=== PATIENT | female | born 1950 | race Caucasian/White ===

== ENCOUNTER 2016-11-07 12:51 | Inpatient (IN) | payer MEDICARE, SELFPAY ==
[2016-11-07] VITALS (10 sets, daily range): BP systolic 83–97; BP diastolic 36–51; PULSE 59–66; RESP 15–21; TEMP 36.3–37; O2SAT 95–100; BMI 25.0; BMI 25.1
--- NOTE | 2016-11-07 13:23 | RAD_ITS ---
STUDY: X-RAY CHEST REASON FOR EXAM: Female, 66 years old. Cough. CHF. TECHNIQUE: Single AP portable view of the chest. COMPARISON: Comparison is made with prior study dated September 25, 2016. FINDINGS: EKG electrodes are seen. Stable bilateral pleural-parenchymal changes worse in the right hemithorax. Gastric congestion. Sternal cerclage wires and vascular clips are present from a prior sternotomy and coronary artery bypass graft procedure (CABG). Normal mediastinum and sharifa. Normal visualized pulmonary arteries. There is atherosclerotic calcification of the aortic arch with tortuosity. There are diffuse degenerative changes of the visualized thoracic spine. Normal visualized ribs, clavicles, and shoulders. There is no demonstrated abnormality of the visualized soft tissue structures of the upper abdomen. RAD/Chest 1 View (Portable) IMPRESSION: Stable bilateral pleural-parenchymal changes worse on the right side. Vascular congestion. Electronically Signed: Anand Rodriguez MD at 14:49 EDT Tel [phone], Service support ,
--- NOTE | 2016-11-07 13:23 | EKG12_ITS ---
Test Reason : Blood Pressure : / mmHG Vent. Rate : 061 BPM Atrial Rate : 061 BPM P-R Int : 164 ms QRS Dur : 148 ms QT Int : 510 ms P-R-T Axes : 030 023 190 degrees QTc Int : 513 ms Normal sinus rhythm Left bundle branch block Abnormal ECG Confirmed by MICHEAL CLARKE, CATHERINE ([id number]), manager editorial TAMEKA WHEELER ([id number]) on 11/09/2016 2:28:17 PM Referred By: LEO Confirmed By:CATHERINE BURTON MD
[2016-11-07 14:42] LABS: Absolute Lymphocyte Count 0.45 X10^3/ul (0.83-4.51); Absolute Neutrophil Count 3.7 X10^3/uL (2.0-7.7); Basophil# 0.01 X10^3/uL; Basophil% 0.2 % (0-1); Differential Indicated SCAN CRITERIA MET; Eosinophil# 0.14 X10^3/uL; Eosinophils% 2.8 % (0-5); Hematocrit 25.8 % (37-47); Hemoglobin 7.9 g/dl (12.0-15.0); Lymphocyte # 0.45 X10^3/ul (4.0); Lymphocyte % 9.1 % (19-41); Mean Corp Hgb Conc 30.6 g/gl (32-36); Mean Corpuscular Hgb 31.3 pg (27.0-32.0); Mean Corpuscular Volume 102.4 fL (81-99); Monocyte# 0.67 X10^3/uL; Monocyte% 13.6 % (0-10); Neutrophil # 3.65 X10^3/uL (2.7-7.7); Neutrophil % 74.1 % (47-70); POSITIVE COUNT NO; POSITIVE DIFFERENTIAL YES; POSITIVE MORPHOLOGY NO; Platelet Count 89 K/mm3 (150-450); RBC Distribution Width SD 55.9 fl (35.1-43.9); Red Blood Count 2.52 M/mm3 (4.2-5.4); White Blood Count 4.9 K/mm3 (4.4-11.0)
[2016-11-07 14:47] LABS: International Normalized Ratio 1.3; Prothrombin Time (Protime)PT. 15.8 SECONDS (11.7-14.9)
[2016-11-07 14:48] LABS: Partial Thromboplast Time 27.8 Seconds (24.1-36.2)
[2016-11-07 14:58] LABS: Hypochromasia 1+
[2016-11-07 14:59] LABS: Platelet Estimate SLT DEC (ADEQ)
[2016-11-07 15:02] LABS: AST(SGOT) 17 U/L (15-37); Alanine Aminotransfer ALT/SGPT 16 U/L (12-78); Albumin, Serum 2.8 g/dL (3.4-5.0); Alkaline Phosphatase 115 U/L (45-117); Anion Gap 3 (5-15); BUN 203 mg/dL (7-18); BUN/Creat Ratio 97.6 RATIO (10-20); Bilirubin, Direct 0.21 mg/dL (0.00-0.30); Calcium,Total 8.9 mg/dL (8.5-10.1); Chloride 104 mmol/L (98-107); Creatinine, Serum 2.08 mg/dL (0.55-1.02); EST Glomerular Filtration Rate 25 mL/min (>60); Est Glom Filt Rate - Afr Amer 31 mL/min (>60); Globulin 4.5 g/dL (2.3-3.5); Glucose 145 mg/dL (70-110); Magnesium 2.7 mg/dL (1.8-2.4); Potassium 5.2 mmol/L (3.5-5.1); Protein, Total 7.3 g/dL (6.4-8.2); Sodium Level 142 mmol/L (136-145)
--- NOTE | 2016-11-07 15:04 | PCM.HP.STD ---
Problem List (1) Anemia, macrocytic Status: Acute (2) LINDA (acute kidney injury) Status: Acute (3) Dehydration Status: Acute (4) Intractable nausea and vomiting Status: Acute (5) Stage 4 pressure ulcer Status: Acute (6) MRSA infection Status: Acute Comment: A49.02 (7) Malnutrition of moderate degree Status: Chronic Comment: E44.0 malnutrition, moderate, unspecified. (8) Cardiomyopathy Status: Chronic History of Present Illness Date of Admission: 11/07/16 Chief Complaint: Abnormal labs The patient is a 66 year old F who was sent to the emergency room from the [facility] [place] where she was staying because she had abnormal labs. She was sent because her BUN was over 200 and her creatinine was elevated at 2.0. On further questioning revealed that the patient has been on a 10 day course of doxycycline for an MRSA infection of a pressure ulcer and she has had severe nausea and vomiting. She is unable to keep down any liquids or solids. She denies any diarrhea. She denies abdominal pain. She does have history of congestive heart failure and cardiomyopathy and she wears a LifeVest defibrillator. She does see Dr. Mtz for cardiology. He currently has no chest pain, pressure, shortness of breath, palpitations, dizziness or lightheadedness. She denies any dysuria or discomfort with her catheter. She wears a leg bag. [] Past Medical History Past Medical History (Chronic Problems): Chronic Problems Cardiomyopathy (Chronic) History of MRSA infection (Chronic) Z86.14 Malnutrition of moderate degree (Chronic) E44.0 malnutrition, moderate, unspecified. Other chronic osteomyelitis, other site (Chronic) M86.68 clinical chronic osteomyelitis sacral bone Sacral decubitus ulcer, stage IV (Chronic) L89.154 Allergies codeine Allergy (Verified 11/07/16 13:03) Rash docetaxel [From Taxotere] Allergy (Verified 11/07/16 13:03) Other Penicillins [PCN] Allergy (Verified 11/07/16 13:03) Rash adhesive Adverse Reaction (Verified 11/07/16 13:03) Rash Home Medications: Ambulatory Orders Medication Instructions Recorded Albuterol Aerosols [Ventolin 2.5 mg INHALATION Q4H PRN PRN 02/08/15 Aerosols] Amiodarone HCl [Cordarone] 200 mg PO DAILY 02/08/15 Aspirin [Aspirin, Baby] 81 mg PO DAILY@0800 02/08/15 BusPIRone [Buspar] 5 mg PO BID 02/08/15 Lactobacillus Acidophilus/Fos 1 each PO DAILY 02/08/15 [Acidophilus Probiotic Tablet] Mirtazapine 7.5 mg PO QHS 02/08/15 Multivitamins,Ther W-Minerals 1 tablet PO DAILY 02/08/15 [Multivitamin With Minerals] Pantoprazole Sodium [Protonix] 40 mg PO DAILY 02/08/15 Simvastatin [Zocor] 10 mg PO QHS 02/08/15 Acetic Acid 30 ml IR BID 05/24/15 Bisacodyl [Laxative Suppository] 10 mg RC DAILY PRN 05/24/15 Nutritional Supplement [Luis - 1 packet PO BIDCM 05/24/15 ORANGE FLAVOR] Benzonatate [Tessalon Perle] 100 mg PO 4X/DAY PRN PRN 09/25/16 Calcium Polycarbophil [Fiber-Caps] 2 cap PO BID 09/25/16 Cefdinir 300 mg PO BID 09/25/16 Docusate Calcium [Surfak] 240 mg PO DAILY 09/25/16 Fexofenadine HCl 90 mg PO DAILY 09/25/16 Fluticasone 0.05% [Flonase Nasal 2 spray NASAL DAILY 09/25/16 [place]] K-Lite 25 meq PO DAILY 09/25/16 Nutritional Supplement [Luis - 1 packet PO BIDCM 09/25/16 ORANGE FLAVOR] Oxybutynin [Ditropan] 10 mg PO DAILY 09/25/16 Polyethylene Glycol 3350 [Miralax] 17 gm PO DAILY 09/25/16 Promethazine/Dextromethorphan 10 ml PO QHS 09/25/16 [Promethazine-Dm Syrup] Surgical History: arthroscopy, knee - for septic right knee., coronary bypass surgery - in 1994, mastectomy - left partial mastectomy with radiation and chemotherapy in 2008., pacemaker implantation - with defibrillator., - - Mitral valve replacement surgery in 06/06. Endovascular revascularization right lower extremity. 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 Lives: Assisted Smoking Status: Never smoker Tobacco Use: Non-smoker Alcohol: None Drugs: None - *Family History Paternal History Items: - - Healthy, currently 84 years of age Maternal History Items: - - Healthy, currently 81 years of age Review of Systems Constitutional: Denies: Chills, Fever, Weakness, Weight Change, Fatigue HEENT: Denies: Difficulty Swallowing, Dysphasia, Head Aches, Sinus Congestion, Sinus Drainage, Visual Changes Cardiovascular: Denies: Chest Pain, Chest Pressure, Chest Tightness, Edema, Heaviness, Palpitations, Syncope Respiratory: Denies: Cough, Pleuritic Pain, Shortness of breath at rest, Shortness of breath upon exertion, Sputum production, Wheezing Gastrointestinal: Reports: Nausea, Vomiting. Denies: Abdominal Pain, Diarrhea Genitourinary: Denies: Dysuria Musculoskeletal: Denies: Joint Pain, Joint Tenderness Skin: Denies: Rash, Wounds Neurological: Denies: Numbness, Tingling, Focal weakness Psychiatric: Denies: Anxiety, Depression, Homicidal Ideations, Suicidal Ideations Hematologic/ Lymphatic: Denies: Easy Bruising, Easy Bleeding VTE Information - Inpt Only VTE Present on Admission: No VTE Mechan Device Prophylaxis: SCD's VTE Pharm Prophylaxis ordered?: No Patient Problems: Active and Suspected Problems LINDA (acute kidney injury) (Acute) Anemia, macrocytic (Acute) Dehydration (Acute) Intractable nausea and vomiting (Acute) Stage 4 pressure ulcer (Acute) - Physical Exam General: Alert, Oriented x3, Cooperative HEENT: Atraumatic, PERRLA, EOMI, Normocephalic Neck: Supple, No JVD, Negative Carotid Bruits Lungs: Clear to auscultation, Normal air movement Cardiovascular: Regular rate, No murmurs Abdomen: Bowel Sounds Present, Soft, Non Tender Extremities: No edema, Capillary Refill Less than 3 Seconds Skin: No rashes, No breakdown Musculoskeletal: No Tenderness to Palpation of Joints or Extremities Neurological: Cranial nerves II-XII grossly intact Psych/Mental Status: Normal Affect, Appropriate, Alert and oriented to time, place, person, mood and affect Vital Signs Temp Pulse Resp BP Pulse Ox 97.6 F 64 18 92/42 100 11/07/16 12:57 11/07/16 12:57 11/07/16 12:57 11/07/16 12:57 11/07/16 12:57 Oxygen Flow Rate 2 Oxygen Delivery Method Nasal Cannula Weight: 70.307 kg Body Mass Index (BMI) 25.0 Finger Stick Blood Glucose 132 Laboratory Tests Past 24 Hrs 08/11/07/16 11/07/16 14:30 14:30 14:30 WBC 4.9 RBC 2.52 L Hgb 7.9 L Hct 25.8 L MCV 102.4 H MCH 31.3 MCHC 30.6 L RDW 15.0 H RDW Differential 55.9 H Plt Count 89 L MPV 11.0 Immature Gran % (Auto) 0.200 Neut % (Auto) 74.1 H Lymph % (Auto) 9.1 L Jessamine % (Auto) 13.6 H Eos % (Auto) 2.8 Baso % (Auto) 0.2 Absolute Neuts (auto) 3.7 Absolute Lymphs (auto) 0.45 L Total Counted Not Reportable Platelet Estimate SLT DEC Hypochromasia 1+ PT 15.8 H INR 1.3 APTT 27.8 Sodium 142 Potassium 5.2 H Chloride 104 Carbon Dioxide 35.0 H Anion Gap 3 L BUN 203 H* Creatinine 2.08 H Est GFR (MDRD) Af Amer 31 L Est GFR (MDRD) Non-Af 25 L BUN/Creatinine Ratio 97.6 H Glucose 145 H Lactic Acid Calcium 8.9 Magnesium 2.7 H Total Bilirubin 0.50 Direct Bilirubin 0.21 AST 17 ALT 16 Alkaline Phosphatase 115 Troponin I 0.49 H Total Protein 7.3 Albumin 2.8 L Globulin 4.5 H 11/07/16 14:30 WBC RBC Hgb Hct MCV MCH MCHC RDW RDW Differential Plt Count MPV Immature Gran % (Auto) Neut % (Auto) Lymph % (Auto) Jessamine % (Auto) Eos % (Auto) Baso % (Auto) Absolute Neuts (auto) Absolute Lymphs (auto) Total Counted Platelet Estimate Hypochromasia PT INR APTT Sodium Potassium Chloride Carbon Dioxide Anion Gap BUN Creatinine Est GFR (MDRD) Af Amer Est GFR (MDRD) Non-Af BUN/Creatinine Ratio Glucose Lactic Acid Pending Calcium Magnesium Total Bilirubin Direct Bilirubin AST ALT Alkaline Phosphatase Troponin I Total Protein Albumin Globulin Assessment/Plan Active and Suspected Problems LINDA (acute kidney injury) (Acute) Anemia, macrocytic (Acute) Dehydration (Acute) Intractable nausea and vomiting (Acute) Stage 4 pressure ulcer (Acute) Assessment/plan: Patient admitted to general medical floor on telemetry for acute kidney injury likely secondary to decreased p.o. intake from nausea and vomiting, suspect intolerance to doxycycline. Troponin was indeterminate, will continue telemetry. 1. Acute kidney injury-probable CKD stage III - provide gentle IV hydration. BUN 203 and creatinine 2.08. Baseline appears to be BUN about 55, creatinine about 1.3. Do not over hydrate this patient as she has cardiomyopathy with severely reduced ejection fraction. Provide antiemetics to encourage p.o. intake. 2. Indeterminate troponin-cycle, telemetry. 3. Pressure injury present on admission with MRSA infection, patient on doxycycline. If she continues to not tolerate doxy she might need her antibiotic changed. Per her sensitivity report this is resistant to Bactrim and clindamycin. It is susceptible to Zyvox and vancomycin. Consult infectious disease. Consult wound care nurse. She has previously been treated by Dr. Howe and Dr. Goetz. 4. General debility-continue PT OT and plan for return to [facility] 5. Cardiomyopathy of unclear etiology-patient has chest vest. Avoid overhydration. Continue home medications. She is not having any cardiac symptoms at this point. 6. Hyperlipidemia-statin 7. Anxiety-BuSpar 8. Malnutrition-continue Remeron and dietary supplements. Consult dietitian 9. GERD-continue Protonix 10. Macrocytic anemia-hemoglobin 7.9. Check B12 and folate levels. Avoid blood thinners. Transfuse if less than 7. DVT prophylaxis with SCDs, no chemoprophylaxis until anemia stable. Estimated length of stay is greater than 2 midnights Discharge planning: return to [facility] at discharge.
[2016-11-07 15:11] LABS: Lactic Acid 2.1 mmol/L (0.4-2.0)
--- NOTE | 2016-11-07 15:12 | ED.DCSUM_ITS ---
- ER Visit Summary Date of Service: 11/07/16 Chief Complaint: [Abnormal labs] History of Present Illness: The patient is a 66 F [who was sent from group home with elevated BUN. Patient states that about 2 weeks ago she began to have vomiting has been really unable to keep food or drink down. Is also about this time that she began doxycycline for MRSA infection. The patient notes that her blood pressure typically runs around 100-110 systolic. She feels like she has dry mouth. She reports still making urine though more concentrated and not as much. She denies any fevers. She denies any rashes. She is wearing a LifeVest and is in need of a defibrillator but cannot undergo anesthesia.] Physical Examination: [Afebrile. Patient is hypertensive 92/42. Heart rate 64. Gen: Well-nourished well-developed Head: Normocephalic atraumatic Eyes: Perrl EOMI ENT: TMs clear no rhinorrhea moist mucous membranes Neck: Supple no lymphadenopathy no JVD nontender CVS: Regular rate rhythm no murmurs normal S1-S2 Respiratory: No distress clear to auscultation bilaterally chest nontender Abdomen: Soft nontender nondistended normal bowel sounds no masses Back: Nontender Extremity: Nontender no edema Skin: Parlor no rash Neuro: alert orientated ?3 CN II-XII intact normal strength sensation reflexes gait cerebellar Psych: Normal affect normal mood] Test Results: [Hemoglobin returns at 7.9. Her BUN is 203 with a creatinine of 2.08. Troponin 0 0.49. Magnesium 2.7 potassium 5.2. Sodium 142. EKG shows a sinus rhythm with left bundle branch block that is old at a rate of 61. Lactic acid is 2.1.] Emergency Department Course and Treatment: [Because the patient has poor ejection fraction we just started to gently hydrate her. I believe her elevated lactic acid is due to dehydration not due to sepsis.] Treatment Plan: [] Disposition: Admission] Impression: [ 1. Severe dehydration 2. Uremia 3. Acute renal failure 4. Elevated troponin 5. Congestive heart failure 6. Anemia] ED Disposition - Plan for ED Patient: Chief Complaint: Abn Labs Referrals: Jamil Carballo DO [Primary Care Provider] -
--- NOTE | 2016-11-07 15:19 | ED.RN ---
unable to put med list in due to computer issues. Please see ECF list for med rec.
--- NOTE | 2016-11-07 17:12 | ECHOD_ITS ---
Reason For Study: Arrhythmia Procedure This was a 2D Doppler, Color Flow transthoracic echocardiogram. Exam performed portable in patient room. Left Ventricle Severely dilated left ventricle. The estimated ejection fraction is 10-15 %. Septal motion consistent with IVCD. There is severe global hypokinesis of the left ventricle. Right Ventricle Moderately dilated right ventricle. Normal systolic function. Atria The left atrium is severely enlarged. The right atrium is mildly enlarged. Normal atrial septum. Mitral Valve Peak transmitral valve gradient 16 mmHg. Mean transmitral valve gradient 7 mmHg. Bioprosthetic mitral valve. Tricuspid Valve Normal tricuspid valve. Mild (1+) tricuspid valve insufficiency. Right ventricular systolic pressure estimated to be 50 mmHg. Moderate pulmonary hypertension. Aortic Valve Trisinus/trileaflet aortic valve. Mild diffuse aortic valve thickening. Trivial aortic valve insufficiency. Pulmonic Valve Normal pulmonic valve. Trivial eccentric pulmonic valve insufficiency. Great Vessels Normal aortic root. Mild atherosclerosis of the aortic arch. Normal inferior vena cava. Inferior vena cava collapse with sniff. Pericardium/Pleural No pericardial effusion. MMode/2D Measurements & Calculations LVIDd: 6.7 cm IVSd: 1.0 cm LVOT diam: 2.3 cm LVIDs: 6.3 cm LVPWd: 0.86 cm LVOT area: 4.2 cm2 RVDd: 4.0 cm FS: 5.5 % Ao root diam: 3.3 cm LAV(MOD-sp4): 82.7 ml LA A4 area: 26.0 cm2 LA dimension: 4.4 cm RA A4 area: 18.8 cm2 Time Measurements MV dec time: 0.51 sec Doppler Measurements & Calculations MV E max scott: 158.1 cm/sec Lat Peak E' Scott: 5.9 cm/sec Med Peak E' Scott: 1.8 cm/sec MV A max scott: 152.7 cm/sec E/E' lat: 26.6 E/E' med: 87.5 MV E/A: 1.0 MV V2 max: 197.8 cm/sec MV P1/2t max scott: 192.5 cm/sec Ao V2 max: 120.2 cm/sec MV max P.7 mmHg MV P1/2t: 110.5 msec Ao max P.8 mmHg MV V2 mean: 120.5 cm/sec MV dec slope: 510.3 cm/sec2 Ao V2 mean: 79.6 cm/sec MV mean P.7 mmHg MVA(P1/2t): 2.0 cm2 Ao mean P.9 mmHg MV V2 VTI: 79.5 cm Ao V2 VTI: 27.6 cm MVA(VTI): 1.4 cm2 AUNG(I,D): 4.1 cm2 AUNG(V,D): 3.6 cm2 AI max scott: 302.0 cm/sec LV V1 max: 103.8 cm/sec SV(LVOT): 113.2 ml AI max P.5 mmHg LV V1 max P.3 mmHg AI dec slope: 121.1 cm/sec2 LV V1 mean P.3 mmHg AI P1/2t: 730.4 msec LV V1 mean: 71.3 cm/sec LV V1 VTI: 27.2 cm PA V2 max: 88.6 cm/sec TR max scott: 336.0 cm/sec TR max P.2 mmHg Interpretation Summary Severely dilated left ventricle. The estimated ejection fraction is 10-15 %. There is severe global hypokinesis of the left ventricle. Moderately dilated right ventricle. The left atrium is severely enlarged. The right atrium is mildly enlarged. Bioprosthetic mitral valve. Mild (1+) tricuspid valve insufficiency. Right ventricular systolic pressure estimated to be 50 mmHg. Moderate pulmonary hypertension. Trivial aortic valve insufficiency. There is no comparison study available. Ordering Physician: Radha Lewis Referring Physician: Jamil Carballo Performed By: Deshawn Montalvo RCS
[2016-11-07 17:15] LABS: Bacteria 0 SEEN /hpf (None Seen); Mucous, Urine 0 SEEN /hpf (<or=2+); Squamous Epithelial Cells - UA 0 SEEN /hpf (5-10); White Blood Cells 0 SEEN /hpf (0-5)
[2016-11-07 17:22] LABS: Color, Urine Yellow (Yellow); Glucose, Dipstick Normal (Normal); Ketone-Dipstick Negative (Negative); Leukocyte Esterase-Dipstick Negative /ul (Negative); Nitrite-Dipstick Negative (Negative); Occult Blood-Urine 150 /ul (Negative); Protein-Dipstick Negative (Negative); Urine Bilirubin Dipstick Negative (Negative); Urine Clarity Sl. Cloudy (Clear); Urine Urobilinogen Normal (Normal); Urine pH 6.5 (5.0 - 8.0)
[2016-11-07 17:31] LABS: Red Blood Cells-Urine 5-10 SEEN /hpf (0-5)
[2016-11-07 17:36] LABS: Reflex Lactate? N
--- NOTE | 2016-11-07 17:44 | US_ITS ---
STUDY: RENAL ULTRASOUND - COMPLETE REASON FOR EXAM: Female, 66 years old. Acute renal failure TECHNIQUE: Ultrasound evaluation of the kidneys was performed with real-time and static henry-scale imaging. COMPARISON: None. FINDINGS: RIGHT KIDNEY: Normal location of the right kidney, which is normal in size. The right kidney measures 10.7 x 4.4 x 4.3 cm. There is a normal cortex of the right kidney. The renal cortex measures 1.5 cm. There is no right renal mass or cyst. There are no right renal calculi. There is no right hydronephrosis. DISTAL RIGHT URETER: There is non-visualization of the distal right ureter. There is no demonstrated right ureterovesical junction calculus. There is no demonstrated right ureteral jet. LEFT KIDNEY: Normal location of the left kidney, which is normal in size. The left kidney measures 10.3 x 4.7 x 4.2 cm. There is a normal cortex of the left kidney. The renal cortex measures 1.9 cm. There is a cyst in the upper pole measuring 1.8 x 1.3 x 1.4 cm. There is an echogenic focus in the lower pole measuring 2 cm. There is mild dilatation of the collecting system in the left kidney. DISTAL LEFT URETER: There is non-visualization of the distal left ureter. There is no demonstrated left ureterovesical junction calculus. There is no demonstrated left ureteral jet. BLADDER: The bladder is decompressed with a Figueroa catheter present. US/Kidney and Bladder IMPRESSION: The kidneys are normal in size and echogenicity. There is mild hydronephrosis in the left kidney. At least one stone is seen in the left kidney measuring 2 cm in the lower pole. A ureteral stone cannot be excluded on the left side. Electronically Signed: Ara Quiles MD at 22:56 EDT Tel [phone], Service support ,
[2016-11-07 18:15] LABS: Urine Sodium 23 mmol/L (Not Establ.)
[2016-11-07] MEDS: 0.9% Normal Saline 1,000 ML 100 ML IV (18:20)
[2016-11-07 19:08] LABS: Ferritin 613 ng/mL (8-252); Iron 22 ug/dL (50-170); Iron Binding Capacity,Total 184 ug/dL (250-450)
[2016-11-07 20:36] LABS: Lactic Acid 1.1 mmol/L (0.4-2.0)
[2016-11-07] MEDS: Mirtazapine 15 MG Tablet 7.5 MG PO (22:44)
[2016-11-07] MEDS: Atorvastatin Calcium 10 MG Tablet 5 MG PO (22:55)
[2016-11-08] VITALS (20 sets, daily range): BP systolic 81–97; BP diastolic 33–50; PULSE 56–78; RESP 16–20; TEMP 36.4–36.9; O2SAT 97–100
[2016-11-08] MEDS: Acetaminophen 325 MG Tablet 650 MG PO ×3 (00:35→14:16)
[2016-11-08 04:40] LABS: Absolute Neutrophil Count 2.2 X10^3/uL (2.0-7.7); Basophil# 0.01 X10^3/uL; Basophil% 0.3 % (0-1); Eosinophil# 0.41 X10^3/uL; Eosinophils% 11.1 % (0-5); Hematocrit 24.2 % (37-47); Hemoglobin 7.4 g/dl (12.0-15.0); Lymphocyte % 21.6 % (19-41); Mean Corp Hgb Conc 30.6 g/gl (32-36); Mean Corpuscular Hgb 31.9 pg (27.0-32.0); Mean Corpuscular Volume 104.3 fL (81-99); Mean Platelet Vol. 11.2 fl (6.2-12.0); Monocyte# 0.32 X10^3/uL; Monocyte% 8.6 % (0-10); Neutrophil # 2.15 X10^3/uL (2.7-7.7); Neutrophil % 58.1 % (47-70); Platelet Count 83 K/mm3 (150-450); RBC Distribution Width CV 14.7 % (11.6-14.6); RBC Distribution Width SD 53.4 fl (35.1-43.9); Red Blood Count 2.32 M/mm3 (4.2-5.4); White Blood Count 3.7 K/mm3 (4.4-11.0)
[2016-11-08 04:54] LABS: Anion Gap 3 (5-15); BUN 165 mg/dL (7-18); Calcium,Total 8.6 mg/dL (8.5-10.1); Chloride 105 mmol/L (98-107); Creatinine, Serum 1.65 mg/dL (0.55-1.02); EST Glomerular Filtration Rate 33 mL/min (>60); Est Glom Filt Rate - Afr Amer 40 mL/min (>60); Estimated Creatinine Clearance 30.97 ml/min; Glucose 121 mg/dL (70-110); Potassium 4.5 mmol/L (3.5-5.1); Sodium Level 142 mmol/L (136-145)
[2016-11-08 05:04] LABS: POSITIVE COUNT NO; POSITIVE DIFFERENTIAL NO; POSITIVE MORPHOLOGY NO
--- NOTE | 2016-11-08 05:55 | EKG12_ITS ---
Test Reason : MORNING EKG Blood Pressure : / mmHG Vent. Rate : 058 BPM Atrial Rate : 058 BPM P-R Int : 154 ms QRS Dur : 144 ms QT Int : 506 ms P-R-T Axes : 011 040 204 degrees QTc Int : 496 ms Sinus bradycardia Left bundle branch block Abnormal ECG When compared with ECG of 07-NOV-2016 13:36, MANUAL COMPARISON REQUIRED, DATA IS UNCONFIRMED Confirmed by CESAR CLARKE, RORO ([id number]), editorial assistant SAMIA GOMES ([id number]) on 11/10/2016 10:17:29 AM Referred By: TOREY Confirmed By:RORO GUERRERO MD
[2016-11-08] MEDS: 0.9% Normal Saline 1,000 ML 100 ML IV (07:43)
[2016-11-08 09:25] LABS: Vitamin B12 433 pg/mL (211-911)
[2016-11-08] MEDS: Pantoprazole Sodium 40 MG Tablet PO (09:41)
[2016-11-08] MEDS: Multivitamins,Ther W-Minerals Tablet 1 TABLET PO (09:41)
[2016-11-08] MEDS: Tolterodine Tartrate 2 MG CAP.SA PO (09:42)
[2016-11-08] MEDS: Amiodarone 200 MG Tablet PO (09:42)
--- NOTE | 2016-11-08 10:13 | CASEMGMT ---
Chart Review: Pt is a resident at [facility]. Pt was brought to the ED for ongoing nausea, emesis, poor intake and abnormal renal labs. Past medical history includes CKD stage III, HLD, anxiety, depression, cardiomyopathy, history of MRSA infection, malnutrition of moderate degree, macrocytic anemia, sacral decubitus ulcer, stage IV, chronic sacral osteomylitis. Pt was on doxycycline for MRSA infection and was suspected to to have intolerance to doxycycline. Pt does have a wound vac to her sacral decubitus. Pt wears a chronic life vest. Pt follows with Dr. Mtz cardiology. Pt has a LINDA likely secondary to decrease PO intake. Pt uses 2 lpm oxygen chronically. Consults for PT and OT, wound RN and ID. Pt is a Q2 turn. Pt is an assist of 2 to the [facility]. Pharmacy is [facility]. PCP: Jamil Carballo. Insurance: [facility]. Discharge Plan: [facility]. Paulina Sanchez RN, BSN, CM
--- NOTE | 2016-11-08 10:22 | NURSING ---
wound photo: sacrum
[2016-11-08] MEDS: Fluticasone 0.05% 1 SPRAY NASAL.SRY 2 SPRAY NASAL (10:50)
[2016-11-08] MEDS: Loratadine 10 MG Tablet PO (10:50)
--- NOTE | 2016-11-08 11:40 | CON.PCM_ITS ---
Problem List (1) Stage 4 pressure ulcer Status: Acute Reason for Consult: mrsa infection Consulted by: Dr. 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 She was started on doxycycline last week for mRSA in sacral wound. Had some worsening of the area over the past few weeks; has weekly wound care visits. Has chronic pain at the site, but not much change in that respect. Had not noted drainage or fevers. She thinks n/v started prior to doxy on 10/31. Admitted, changed to iv doxy, wound care consulted, feeling slightly improved this AM. Full ROS performed and neg except as noted above. - Medical History Past Medical History (Chronic Problems): Chronic Problems Cardiomyopathy (Chronic) History of MRSA infection (Chronic) Z86.14 Malnutrition of moderate degree (Chronic) E44.0 malnutrition, moderate, unspecified. Other chronic osteomyelitis, other site (Chronic) M86.68 clinical chronic osteomyelitis sacral bone Sacral decubitus ulcer, stage IV (Chronic) L89.154 Allergies/Adverse Reactions: Allergies codeine Allergy (Verified 11/07/16 13:03) Rash docetaxel [From Taxotere] Allergy (Verified 11/07/16 17:20) skin peeled from hands and feet-lips and throat blistered Penicillins [PCN] Allergy (Verified 11/07/16 13:03) Rash adhesive Adverse Reaction (Verified 11/07/16 13:03) Rash Home Medications: Ambulatory Orders Medication Instructions Recorded Albuterol Aerosols [Ventolin 2.5 mg INHALATION Q4H PRN PRN 02/08/15 Aerosols] Amiodarone HCl [Cordarone] 200 mg PO DAILY 02/08/15 Aspirin [Aspirin, Baby] 81 mg PO DAILY@0800 02/08/15 BusPIRone [Buspar] 5 mg PO BID 02/08/15 Lactobacillus Acidophilus/Fos 1 each PO DAILY 02/08/15 [Acidophilus Probiotic Tablet] Mirtazapine 7.5 mg PO QHS 02/08/15 Multivitamins,Ther W-Minerals 1 tablet PO DAILY 02/08/15 [Multivitamin With Minerals] Pantoprazole Sodium [Protonix] 40 mg PO DAILY 02/08/15 Simvastatin [Zocor] 10 mg PO QHS 02/08/15 Acetic Acid 30 ml IR BID 05/24/15 Bisacodyl [Laxative Suppository] 10 mg RC DAILY PRN 05/24/15 Benzonatate [Tessalon Perle] 100 mg PO 4X/DAY PRN PRN 09/25/16 Docusate Calcium [Surfak] 240 mg PO DAILY 09/25/16 Fexofenadine HCl 90 mg PO DAILY 09/25/16 Fluticasone 0.05% [Flonase Nasal 2 spray NASAL DAILY 09/25/16 [place]] Oxybutynin [Ditropan] 10 mg PO DAILY 09/25/16 Polyethylene Glycol 3350 [Miralax] 17 gm PO DAILY 09/25/16 Promethazine/Dextromethorphan 10 ml PO QHS 09/25/16 [Promethazine-Dm Syrup] Acetaminophen [Tylenol Extra 500 mg PO Q8H PRN 11/07/16 Strength] Krish Antifungal Cream 2% 1 applicatio TOPICAL BID 11/07/16 Calcium Polycarbophil [Fiber-Caps] 2 cap PO BID 11/07/16 Doxycycline [Vibramycin] 100 mg PO BID 11/07/16 Furosemide [Lasix] 40 mg PO DAILY 11/07/16 Guaifenesin Dm [Robitussin Dm] 5 ml PO Q4H PRN 11/07/16 Ketoconazole [Nizoral] 1 applic TOPICAL QHS 11/07/16 Lactose-Reduced Food [Boost Breeze] 237 ml PO BID 11/07/16 Lisinopril [Zestril] 2.5 mg PO DAILY 11/07/16 Magnesium Hydroxide [Milk Of 30 ml PO DAILY PRN PRN 11/07/16 Magnesia] Melatonin 5 mg PO QHS PRN 11/07/16 Metoprolol(XL)Succ [Toprol Xl 25 mg PO DAILY 11/07/16 (Beta Naomi)] Nutritional Supplement [Luis - 1 packet PO BIDCM 11/07/16 ORANGE FLAVOR] Nystatin Powder [Mycostatin Powder] 1 applic TOPICAL BID PRN 11/07/16 Ondansetron HCl [Zofran] 4 mg PO Q4H PRN 11/07/16 Potassium Chloride [Klor-Con] 25 meq PO DAILY 11/07/16 Protein Supplement [Prosource] 1 oz PO TID 11/07/16 Saliva Substitute Combo No.9 1 applicatio MM BID 11/07/16 [Biotene] Vital Signs Temp Pulse Resp BP Pulse Ox 97.8 F 61 16 90/45 100 11/08/16 09:48 11/08/16 09:48 11/08/16 09:48 11/08/16 09:48 11/08/16 09:48 Oxygen Flow Rate 2 Oxygen Delivery Method Nasal Cannula Weight: 70.488 kg Body Mass Index (BMI) 25.0 Laboratory Tests Past 24 Hrs 11/07/16 11/07/16 11/07/16 16:40 16:40 16:40 WBC RBC Hgb Hct MCV MCH MCHC RDW RDW Differential Plt Count MPV Immature Gran % (Auto) Neut % (Auto) Lymph % (Auto) [place] % (Auto) Eos % (Auto) Baso % (Auto) Absolute Neuts (auto) Absolute Lymphs (auto) Total Counted Sodium Potassium Chloride Carbon Dioxide Anion Gap BUN Creatinine Estim Creat Clear Calc Est GFR (MDRD) Af Amer Est GFR (MDRD) Non-Af BUN/Creatinine Ratio Glucose Lactic Acid Calcium Iron TIBC Iron Saturation Ferritin Troponin I Vitamin B12 Folate TSH Urine Color Yellow Urine Clarity Sl. Cloudy Urine pH 6.5 Ur Specific [place] 1.010 Urine Protein Negative Urine Glucose (UA) Normal Urine Ketones Negative Urine Occult Blood 150 H Urine Nitrite Negative Urine Bilirubin Negative Urine Urobilinogen Normal Ur Leukocyte Esterase Negative Urine RBC 5-10 SEEN Urine WBC 0 SEEN Ur Squamous Epith Cells 0 SEEN Urine Bacteria 0 SEEN Urine Mucus 0 SEEN Ur Random Sodium 23 Urine Creatinine 20.80 Blood Type Antibody Screen 11/07/16 11/07/16 11/07/16 18:30 18:30 18:30 WBC RBC Hgb Hct MCV MCH MCHC RDW RDW Differential Plt Count MPV Immature Gran % (Auto) Neut % (Auto) Lymph % (Auto) [place] % (Auto) Eos % (Auto) Baso % (Auto) Absolute Neuts (auto) Absolute Lymphs (auto) Total Counted Sodium Potassium Chloride Carbon Dioxide Anion Gap BUN Creatinine Estim Creat Clear Calc Est GFR (MDRD) Af Amer Est GFR (MDRD) Non-Af BUN/Creatinine Ratio Glucose Lactic Acid Calcium Iron 22 L TIBC 184 L Iron Saturation 12.0 L Ferritin 613 H Troponin I 0.46 H Vitamin B12 433 Folate TSH 0.60 Urine Color Urine Clarity Urine pH Ur Specific [place] Urine Protein Urine Glucose (UA) Urine Ketones Urine Occult Blood Urine Nitrite Urine Bilirubin Urine Urobilinogen Ur Leukocyte Esterase Urine RBC Urine WBC Ur Squamous Epith Cells Urine Bacteria Urine Mucus Ur Random Sodium Urine Creatinine Blood Type Antibody Screen 11/07/16 11/07/16 11/07/16 18:30 20:05 22:48 WBC RBC Hgb Hct MCV MCH MCHC RDW RDW Differential Plt Count MPV Immature Gran % (Auto) Neut % (Auto) Lymph % (Auto) [place] % (Auto) Eos % (Auto) Baso % (Auto) Absolute Neuts (auto) Absolute Lymphs (auto) Total Counted Sodium Potassium Chloride Carbon Dioxide Anion Gap BUN Creatinine Estim Creat Clear Calc Est GFR (MDRD) Af Amer Est GFR (MDRD) Non-Af BUN/Creatinine Ratio Glucose Lactic Acid 1.1 Calcium Iron TIBC Iron Saturation Ferritin Troponin I 0.43 H Vitamin B12 Folate TSH Urine Color Urine Clarity Urine pH Ur Specific [place] Urine Protein Urine Glucose (UA) Urine Ketones Urine Occult Blood Urine Nitrite Urine Bilirubin Urine Urobilinogen Ur Leukocyte Esterase Urine RBC Urine WBC Ur Squamous Epith Cells Urine Bacteria Urine Mucus Ur Random Sodium Urine Creatinine Blood Type O POSITIVE Antibody Screen NEGATIVE 11/08/16 11/08/16 11/08/16 04:06 04:06 04:06 WBC 3.7 L RBC 2.32 L Hgb 7.4 L Hct 24.2 L MCV 104.3 H MCH 31.9 MCHC 30.6 L RDW 14.7 H RDW Differential 53.4 H Plt Count 83 L MPV 11.2 Immature Gran % (Auto) 0.300 Neut % (Auto) 58.1 Lymph % (Auto) 21.6 [place] % (Auto) 8.6 Eos % (Auto) 11.1 H Baso % (Auto) 0.3 Absolute Neuts (auto) 2.2 Absolute Lymphs (auto) 0.80 L Total Counted Not Reportable Sodium 142 Potassium 4.5 Chloride 105 Carbon Dioxide 34.0 H Anion Gap 3 L BUN 165 H* Creatinine 1.65 H Estim Creat Clear Calc 30.97 Est GFR (MDRD) Af Amer 40 L Est GFR (MDRD) Non-Af 33 L BUN/Creatinine Ratio 100.0 H Glucose 121 H Lactic Acid Calcium 8.6 Iron TIBC Iron Saturation Ferritin Troponin I 0.41 H Vitamin B12 Folate Pending TSH Urine Color Urine Clarity Urine pH Ur Specific [place] Urine Protein Urine Glucose (UA) Urine Ketones Urine Occult Blood Urine Nitrite Urine Bilirubin Urine Urobilinogen Ur Leukocyte Esterase Urine RBC Urine WBC Ur Squamous Epith Cells Urine Bacteria Urine Mucus Ur Random Sodium Urine Creatinine Blood Type Antibody Screen - Other Studies Radiology: []reviewed Other Studies: [] Route of nutrition/ use of supplements: [] Nutritional Intake: [] IV Site: [] Figueroa Catheter: [] - Physical Exam General: Alert, Oriented x3, Cooperative, No apparent distress HEENT: Atraumatic, PERRLA, EOMI Neck: Supple, No Nodes Lungs: Clear to auscultation, Normal air movement Cardiovascular: Regular rate, Regular Rhythm Abdomen: Bowel Sounds Present, Soft, Non Tender, Non-Distended Extremities: No cyanosis Skin: No rashes, Ulcer/ Wound - reviewed photo, deep stage 4 sacral ulcer, clean borders Musculoskeletal: No Tenderness to Palpation of Joints or Extremities Neurological: Cranial nerves II-XII grossly intact - Assessment/Plan Antibiotics: [] Assessment/Plan: [] Active and Suspected Problems LINDA (acute kidney injury) (Acute) Anemia, macrocytic (Acute) Dehydration (Acute) Intractable nausea and vomiting (Acute) Stage 4 pressure ulcer (Acute) MRSA infected sacral ulcer - d/w wound nurse. No sign of active infection. Continue doxy iv for now. Reviewed ECF med list and labwork. Thank you, will follow.
--- NOTE | 2016-11-08 12:19 | EKG12_ITS ---
Test Reason : RYTHM CHG Blood Pressure : / mmHG Vent. Rate : 076 BPM Atrial Rate : 394 BPM P-R Int : 000 ms QRS Dur : 168 ms QT Int : 480 ms P-R-T Axes : 000 019 187 degrees QTc Int : 540 ms Atrial fibrillation Left bundle branch block Abnormal ECG Confirmed by CESAR CLARKE, RORO ([id number]), newspaper editor managing TAMEKA WHEELER ([id number]) on 11/14/2016 1:25:47 PM Referred By: Confirmed By:RORO GUERRERO MD
--- NOTE | 2016-11-08 12:54 | NURSING ---
Pt has change in tele strip, EKG ordered and physician informed
--- NOTE | 2016-11-08 15:39 | PCM.PROGNOTE ---
Patient Problems: Active and Suspected Problems LINDA (acute kidney injury) (Acute) Anemia, macrocytic (Acute) Dehydration (Acute) Intractable nausea and vomiting (Acute) Stage 4 pressure ulcer (Acute) Subjective: Patient resting comfortably in bed. She has no further nausea or vomiting. She still has had poor p.o. intake as she is regurgitating food-only solids at this point. She is unable to completely swallow them and notes that before she is able to completely swallow them she coughs them back up. She has no shortness of breath, no fevers or chills, no significant cough at this point. Her pain in her wound site is stable. She continues to have no diarrhea. No abdominal pain. She is not dizzy or lightheaded. - Physical Exam General: Alert, Oriented x3, Cooperative HEENT: Atraumatic, PERRLA, EOMI, Normocephalic Neck: Supple, No JVD, Negative Carotid Bruits Lungs: Clear to auscultation, Normal air movement Cardiovascular: Regular rate, No murmurs Abdomen: Bowel Sounds Present, Soft, Non Tender Extremities: No edema, Capillary Refill Less than 3 Seconds Skin: No rashes, No breakdown Musculoskeletal: No Tenderness to Palpation of Joints or Extremities Neurological: Cranial nerves II-XII grossly intact Psych/Mental Status: Normal Affect, Appropriate, Alert and oriented to time, place, person, mood and affect Vital Signs Temp Pulse Resp BP Pulse Ox 97.6 F 78 20 93/42 98 11/08/16 12:00 11/08/16 12:00 11/08/16 12:00 11/08/16 12:00 11/08/16 12:00 Oxygen Flow Rate 2 Oxygen Delivery Method Room Air Weight: 70.488 kg Body Mass Index (BMI) 25.0 Intake and Output for Last 24 Hours 11/06/16 11/07/16 11/08/16 23:59 23:59 23:59 Intake Total 840 642 Output Total 1200 1350 Balance -360 -708 Microbiology Past 72 Hours 11/08/16 12:15 Stool Occult Blood (ARNOLDO) - Final Stool Occult Blood Positive Laboratory Tests Past 24 Hrs 11/07/16 11/07/16 11/07/16 16:40 16:40 16:40 WBC RBC Hgb Hct MCV MCH MCHC RDW RDW Differential Plt Count MPV Immature Gran % (Auto) Neut % (Auto) Lymph % (Auto) [place] % (Auto) Eos % (Auto) Baso % (Auto) Absolute Neuts (auto) Absolute Lymphs (auto) Total Counted Sodium Potassium Chloride Carbon Dioxide Anion Gap BUN Creatinine Estim Creat Clear Calc Est GFR (MDRD) Af Amer Est GFR (MDRD) Non-Af BUN/Creatinine Ratio Glucose Lactic Acid Calcium Iron TIBC Iron Saturation Ferritin Troponin I Vitamin B12 Folate TSH Urine Color Yellow Urine Clarity Sl. Cloudy Urine pH 6.5 Ur Specific [place] 1.010 Urine Protein Negative Urine Glucose (UA) Normal Urine Ketones Negative Urine Occult Blood 150 H Urine Nitrite Negative Urine Bilirubin Negative Urine Urobilinogen Normal Ur Leukocyte Esterase Negative Urine RBC 5-10 SEEN Urine WBC 0 SEEN Ur Squamous Epith Cells 0 SEEN Urine Bacteria 0 SEEN Urine Mucus 0 SEEN Ur Random Sodium 23 Urine Creatinine 20.80 Blood Type Antibody Screen 11/07/16 11/07/16 11/07/16 18:30 18:30 18:30 WBC RBC Hgb Hct MCV MCH MCHC RDW RDW Differential Plt Count MPV Immature Gran % (Auto) Neut % (Auto) Lymph % (Auto) [place] % (Auto) Eos % (Auto) Baso % (Auto) Absolute Neuts (auto) Absolute Lymphs (auto) Total Counted Sodium Potassium Chloride Carbon Dioxide Anion Gap BUN Creatinine Estim Creat Clear Calc Est GFR (MDRD) Af Amer Est GFR (MDRD) Non-Af BUN/Creatinine Ratio Glucose Lactic Acid Calcium Iron 22 L TIBC 184 L Iron Saturation 12.0 L Ferritin 613 H Troponin I 0.46 H Vitamin B12 433 Folate TSH 0.60 Urine Color Urine Clarity Urine pH Ur Specific [place] Urine Protein Urine Glucose (UA) Urine Ketones Urine Occult Blood Urine Nitrite Urine Bilirubin Urine Urobilinogen Ur Leukocyte Esterase Urine RBC Urine WBC Ur Squamous Epith Cells Urine Bacteria Urine Mucus Ur Random Sodium Urine Creatinine Blood Type Antibody Screen 11/07/16 11/07/16 11/07/16 18:30 20:05 22:48 WBC RBC Hgb Hct MCV MCH MCHC RDW RDW Differential Plt Count MPV Immature Gran % (Auto) Neut % (Auto) Lymph % (Auto) [place] % (Auto) Eos % (Auto) Baso % (Auto) Absolute Neuts (auto) Absolute Lymphs (auto) Total Counted Sodium Potassium Chloride Carbon Dioxide Anion Gap BUN Creatinine Estim Creat Clear Calc Est GFR (MDRD) Af Amer Est GFR (MDRD) Non-Af BUN/Creatinine Ratio Glucose Lactic Acid 1.1 Calcium Iron TIBC Iron Saturation Ferritin Troponin I 0.43 H Vitamin B12 Folate TSH Urine Color Urine Clarity Urine pH Ur Specific [place] Urine Protein Urine Glucose (UA) Urine Ketones Urine Occult Blood Urine Nitrite Urine Bilirubin Urine Urobilinogen Ur Leukocyte Esterase Urine RBC Urine WBC Ur Squamous Epith Cells Urine Bacteria Urine Mucus Ur Random Sodium Urine Creatinine Blood Type O POSITIVE Antibody Screen NEGATIVE 11/08/16 11/08/16 11/08/16 04:06 04:06 04:06 WBC 3.7 L RBC 2.32 L Hgb 7.4 L Hct 24.2 L MCV 104.3 H MCH 31.9 MCHC 30.6 L RDW 14.7 H RDW Differential 53.4 H Plt Count 83 L MPV 11.2 Immature Gran % (Auto) 0.300 Neut % (Auto) 58.1 Lymph % (Auto) 21.6 [place] % (Auto) 8.6 Eos % (Auto) 11.1 H Baso % (Auto) 0.3 Absolute Neuts (auto) 2.2 Absolute Lymphs (auto) 0.80 L Total Counted Not Reportable Sodium 142 Potassium 4.5 Chloride 105 Carbon Dioxide 34.0 H Anion Gap 3 L BUN 165 H* Creatinine 1.65 H Estim Creat Clear Calc 30.97 Est GFR (MDRD) Af Amer 40 L Est GFR (MDRD) Non-Af 33 L BUN/Creatinine Ratio 100.0 H Glucose 121 H Lactic Acid Calcium 8.6 Iron TIBC Iron Saturation Ferritin Troponin I 0.41 H Vitamin B12 Folate 64.20 H TSH Urine Color Urine Clarity Urine pH Ur Specific [place] Urine Protein Urine Glucose (UA) Urine Ketones Urine Occult Blood Urine Nitrite Urine Bilirubin Urine Urobilinogen Ur Leukocyte Esterase Urine RBC Urine WBC Ur Squamous Epith Cells Urine Bacteria Urine Mucus Ur Random Sodium Urine Creatinine Blood Type Antibody Screen Assessment/Plan Active and Suspected Problems LINDA (acute kidney injury) (Acute) Anemia, macrocytic (Acute) Dehydration (Acute) Intractable nausea and vomiting (Acute) Stage 4 pressure ulcer (Acute) Assessment/plan: Patient admitted to general medical floor on telemetry for acute kidney injury likely secondary to decreased p.o. intake from nausea and vomiting, suspect intolerance to doxycycline. Troponin was indeterminate, will continue telemetry. 1. Acute kidney injury-probable CKD stage III - provide gentle IV hydration. BUN 203 and creatinine 2.08 on admission, this is now improving. She still unable to tolerate p.o. adequately.. Baseline appears to be BUN about 55, creatinine about 1.3. Do not over hydrate this patient as she has cardiomyopathy with severely reduced ejection fraction. Provide antiemetics to encourage p.o. intake. 2. Indeterminate troponin-cycle, telemetry. Indeterminate troponin possibly secondary to AK I. Echocardiogram done revealing severely dilated left ventricle, EF of 10-15%, severe global hypokinesis of left ventricle, moderately dilated right ventricle, severely enlarged left atrium, bioprosthetic mitral valve, RVSP of 50 mmHg with moderate pulmonary hypertension. Chest vest in place. 3. Pressure injury present on admission with MRSA infection, patient on doxycycline. If she continues to not tolerate doxy she might need her antibiotic changed. Per her sensitivity report this is resistant to Bactrim and clindamycin. It is susceptible to Zyvox and vancomycin. Consult infectious disease. Consult wound care nurse. She has previously been treated by Dr. Howe and Dr. Goetz. Infectious disease saw the patient today and recommends to continue IV doxycycline for now. 4. General debility-this patient has been severely debilitated since 2013. She had prolonged hospitalizations following an [place] in April 2013 during which she developed pressure ulcers. Since then it would appear that she has been in LTAC's in extended-care facilities and has had recurrent problems since then with wounds infected with MRSA. She has been in and out of the wound care center with Dr. Goetz and Dr. Howe. continue PT OT and plan for return to extended care facility. 5. Cardiomyopathy of unclear etiology-patient has chest vest. Ejection fraction 10-15%, see echo results. Avoid overhydration. Continue home medications. She is not having any cardiac symptoms at this point. 6. Hyperlipidemia-statin 7. Anxiety-BuSpar 8. Malnutrition-continue Remeron and dietary supplements. Consult dietitian 9. GERD-continue Protonix 10. Macrocytic anemia-hemoglobin 7.9. B12, folate, iron studies negative. Her occult blood was positive. We will start her on Protonix IV 40 twice daily and in transfuse 2 units packed red blood cells. Follow Hgb. 11. Suspected dysphagia, difficulty swallowing solids with regurgitation. Patient will be made n.p.o. while awaiting speech therapy eval. DVT prophylaxis with SCDs, no chemoprophylaxis with + hemoccult and significant anemia. Discharge planning: return to [facility] at discharge.
--- NOTE | 2016-11-08 15:53 | NURSING ---
Called and talked [facility] to see if patient has been following there with Dr Howe. Their records indicate that patient refused to come back there after May of 2015. They will check with Dr Howe to see if he will see her again so she can be followed by a surgeon. wound is stalled and edges are slightly rolled. the edges need roughened up and bioburden removed to promote healing. Wound Center to call patient back. the wound center is aware that the patient is currently in PCU.
--- NOTE | 2016-11-08 16:24 | CHAPLAIN ---
patient has met me before; pt explains the sudden decision by [facility] [place] doctor to have her come to the ED for evaluation and admission; pt is having many tests done; pt reviews her medical history which is lengthy; pt is a and her family does not live close by; pt speaks of her deep radha in God and that He is the only one that gets her through these times; pt says that I am going to make it; pt would like me to say a prayer with her and this is done
[2016-11-08] MEDS: Mirtazapine 15 MG Tablet 7.5 MG PO (22:53)
[2016-11-08] MEDS: Atorvastatin Calcium 10 MG Tablet 5 MG PO (22:53)
[2016-11-09] VITALS (27 sets, daily range): BP systolic 54–120; BP diastolic 44–86; PULSE 65–119; RESP 18–40; TEMP 36.5–37.3; O2SAT 88–99
[2016-11-09] MEDS: 0.9% Normal Saline 1,000 ML 100 ML IV (00:46)
[2016-11-09 06:58] LABS: Absolute Lymphocyte Count 0.67 X10^3/ul (0.83-4.51); Absolute Neutrophil Count 2.8 X10^3/uL (2.0-7.7); Basophil# 0.01 X10^3/uL; Basophil% 0.3 % (0-1); Eosinophil# 0.15 X10^3/uL; Eosinophils% 3.8 % (0-5); Hematocrit 31.7 % (37-47); Hemoglobin 9.9 g/dl (12.0-15.0); Lymphocyte # 0.67 X10^3/ul (4.0); Lymphocyte % 17.1 % (19-41); Mean Corp Hgb Conc 31.2 g/gl (32-36); Mean Corpuscular Hgb 30.9 pg (27.0-32.0); Mean Corpuscular Volume 99.1 fL (81-99); Mean Platelet Vol. 11.1 fl (6.2-12.0); Monocyte# 0.32 X10^3/uL; Monocyte% 8.2 % (0-10); Neutrophil # 2.76 X10^3/uL (2.7-7.7); Neutrophil % 70.3 % (47-70); Platelet Count 84 K/mm3 (150-450); RBC Distribution Width CV 16.8 % (11.6-14.6); RBC Distribution Width SD 58.8 fl (35.1-43.9); White Blood Count 3.9 K/mm3 (4.4-11.0)
[2016-11-09 06:59] LABS: POSITIVE COUNT NO; POSITIVE DIFFERENTIAL NO; POSITIVE MORPHOLOGY NO
[2016-11-09 07:09] LABS: Anion Gap 3 (5-15); BUN 106 mg/dL (7-18); BUN/Creat Ratio 88.3 RATIO (10-20); Calcium,Total 9.2 mg/dL (8.5-10.1); Chloride 108 mmol/L (98-107); EST Glomerular Filtration Rate 48 mL/min (>60); Est Glom Filt Rate - Afr Amer 58 mL/min (>60); Estimated Creatinine Clearance 42.59 ml/min; Glucose 97 mg/dL (70-110); Potassium 4.8 mmol/L (3.5-5.1); Sodium Level 142 mmol/L (136-145)
--- NOTE | 2016-11-09 08:51 | CASEMGMT ---
SW faxed information to [facility] so they can begin pre-cert. ADRIÁN called and left a message requesting a return call. Plan: d/c back to [facility] pending pre-cert. Qing DE LA TORRE MSW
--- NOTE | 2016-11-09 09:24 | PN_ITS ---
Addendum entered and electronically signed by Prisca Cortes NP-C 11/09/16 17:33: Patient became acutely short of breath after getting up to the bathroom and getting cleaned up, her oxygen requirements increased to 4 L per nasal cannula from 2L. She was pursed lip breathing. Her IVF were discontinued. I recommended she be placed on BiPAP therapy, she refused. She became quite upset and states she is claustrophobic and cannot tolerate BiPAP in the past. She denied any chest pain or palpitations. She converted from a sinus rhythm to atrial fibrillation on the monitor (does have PAF). She then had persistent wide-complex ventricular tachycardia. She was put on a 50% Ventimask and her saturations are currently 92%. Her blood pressure is stable at 110/61, remains afebrile. Respirations are 40. EKG demonstrated atrial fibrillation with premature ventricular or aberrantly conducted complexes, nonspecific intraventricular block. Rate 95 bpm. It does appear that she has acute ischemic changes. She was given sublingual nitro ?1. Repeat chest x-ray demonstrated persistent bilateral atelectasis versus infiltrate and pleural effusions, worse on the right. Physical exam reveals absent breath sounds to the lower two thirds of the right lung and left lower lung. It was confirmed that the patient would like to remain a FULL CODE. I did attempt to contact Dr. Mtz to give him an update, but he was not lamination machine operator. Dr. Gonzalez was updated and states he will be in to see the patient this evening. Magnesium was repeated, 2.6. Troponin was also repeated, has decreased from 0.41 to 0.18. She may need to have a thoracentesis prior to Pleurx catheter insertion, however will await Dr. Gonzalez recommendations. Given the patient's acute decline in respiratory and cardiovascular status, the patient was transferred to the intensive care unit. Original Note: Patient Problems: Active and Suspected Problems LINDA (acute kidney injury) (Acute) Anemia, macrocytic (Acute) Dehydration (Acute) Intractable nausea and vomiting (Acute) Stage 4 pressure ulcer (Acute) Subjective: The patient is a 66-year-old female who presented to the emergency room from [facility] with one-week history of nausea and vomiting, inability to maintain hydration, and acute on chronic renal failure. The patient was recently at [facility] for decompensated congestive heart failure and was placed on high dose of diuretic due to severe cardiomyopathy. She ended up having several ultrasound-guided thoracentesis in September. She had follow-up labs done and was noted to have a significantly elevated BUN and creatinine. Her Lasix was held for several days and she was to have this repeated on Sunday per Dr. Crews. Does wear a LifeVest. Patient was seen and examined. She denies any shortness of breath at rest, does get short of breath with any activity. She does note that her oral intake is very poor, she was able to drink a little bit of her Glucerna this morning. She is sucking on some ice chips. She states she does not feel hungry at all. She does have intermittent nausea and vomiting, no emesis recently. She denies any chest pain, palpitations, or dizziness. She is pancytopenic. Objective: Clinical Impression(s) from Imaging Studies Chest X-Ray 11/07/16 13:23 IMPRESSION: Stable bilateral pleural-parenchymal changes worse on the right side. Vascular congestion. Electronically Signed: Anand Rodriguez MD at 14:49 EDT Tel [phone], Service support , Renal Ultrasound 11/07/16 17:44 IMPRESSION: The kidneys are normal in size and echogenicity. There is mild hydronephrosis in the left kidney. At least one stone is seen in the left kidney measuring 2 cm in the lower pole. A ureteral stone cannot be excluded on the left side. Electronically Signed: Ara Quiles MD at 22:56 EDT Tel [phone], Service support , - Physical Exam General: Alert, Oriented x3, Cooperative, No apparent distress HEENT: Atraumatic, Normocephalic Oral: Moist Mucosa, No Gingival or Mucosal Lesions/ Ulcerations Neck: Supple, No Nodes, Trachea Midline Lungs: No rhonchi, No wheeze, No rales, Diminished - Throughout posterior. Cardiovascular: Regular rate, Regular Rhythm, Normal S1, Normal S2, PMI Normal, No rub noted, No Gallop Abdomen: Bowel Sounds Present, Soft, Non Tender, Obese Extremities: No clubbing, Capillary Refill Less than 3 Seconds, Edema - Trace bilateral lower extremity Skin: No rashes, Ulcer/ Wound - see wound notes. Musculoskeletal: No Tenderness to Palpation of Joints or Extremities Lymphatic: No Cervical, Supraclavicular, or Inguinal Adenopathy Neurological: Cranial nerves II-XII grossly intact Psych/Mental Status: Normal Affect, - - does not appear to be in any acute distress, no conversational dyspnea Vital Signs Temp Pulse Resp BP Pulse Ox 98.2 F 74 20 106/61 94 11/09/16 08:20 11/09/16 08:20 11/09/16 08:20 11/09/16 08:20 11/09/16 08:20 Oxygen Flow Rate 2 Oxygen Delivery Method Nasal Cannula Weight: 70.488 kg Body Mass Index (BMI) 25.0 Intake and Output for Last 24 Hours 11/07/16 11/08/16 11/09/16 23:59 23:59 23:59 Intake Total 840 3629 985 Output Total 1200 3000 700 Balance -360 629 285 Microbiology Past 72 Hours 11/08/16 12:15 Stool Occult Blood (ARNOLDO) - Final Stool Occult Blood Positive Laboratory Tests Past 24 Hrs 11/07/16 11/07/16 11/08/16 18:30 18:30 04:06 WBC RBC Hgb Hct MCV MCH MCHC RDW RDW Differential Plt Count MPV Immature Gran % (Auto) Neut % (Auto) Lymph % (Auto) Walton % (Auto) Eos % (Auto) Baso % (Auto) Absolute Neuts (auto) Absolute Lymphs (auto) Total Counted Sodium Potassium Chloride Carbon Dioxide Anion Gap BUN Creatinine Estim Creat Clear Calc Est GFR (MDRD) Af Amer Est GFR (MDRD) Non-Af BUN/Creatinine Ratio Glucose Calcium Vitamin B12 433 Folate 64.20 H Crossmatch See Detail 11/09/16 11/09/16 06:36 06:36 WBC 3.9 L RBC 3.20 L Hgb 9.9 L Hct 31.7 L MCV 99.1 H MCH 30.9 MCHC 31.2 L RDW 16.8 H RDW Differential 58.8 H Plt Count 84 L MPV 11.1 Immature Gran % (Auto) 0.300 Neut % (Auto) 70.3 H Lymph % (Auto) 17.1 L Walton % (Auto) 8.2 Eos % (Auto) 3.8 Baso % (Auto) 0.3 Absolute Neuts (auto) 2.8 Absolute Lymphs (auto) 0.67 L Total Counted Not Reportable Sodium 142 Potassium 4.8 Chloride 108 H Carbon Dioxide 31.0 Anion Gap 3 L BUN 106 H* Creatinine 1.20 H Estim Creat Clear Calc 42.59 Est GFR (MDRD) Af Amer 58 L Est GFR (MDRD) Non-Af 48 L BUN/Creatinine Ratio 88.3 H Glucose 97 Calcium 9.2 Vitamin B12 Folate Crossmatch Assessment/Plan Active and Suspected Problems LINDA (acute kidney injury) (Acute) Anemia, macrocytic (Acute) Dehydration (Acute) Intractable nausea and vomiting (Acute) Stage 4 pressure ulcer (Acute) 1. Acute kidney injury Probable CKD stage III (baseline BUN and creatinine approximately 55 and 1.3), receiving gentle IV fluid rehydration. BUN 203 and creatinine 2.08 on admission , this has been slowly improving. 11/09 BUN 106, creatinine 1.2. Spoke with Dr. Mtz, he notes the patient was recently admitted to the [facility] with decompensated heart failure and was placed on a high-dose diuretic. Her BUN increased to 150 and her diuretics were held for several days. She did notably have a right pleural effusion and an ejection fraction of 10%. Her fluid status has not significantly changed with the diuretic therapy according to Dr. Mtz. He has recommended possible US guided thoracentesis, notes they were trying to avoid this as outpatient but would be beneficial given her kidney function and overall fluid status as she will not be able to tolerate diuretics. See #4 2. Indeterminate troponins Non-trending. No chest pain. Shortness of breath at baseline. Continue to monitor on telemetry. 3. Stage IV pressure ulcer, chronic History of MRSA infection, has been to the wound clinic off and on, has seen Dr. Howe and Dr. Goetz in the past. She had been taking oral doxycycline. Wound cultures were obtained from another facility, sensitivity was noted with vancomycin and Zyvox. Infectious disease was consulted, recommends IV doxycycline. Wound does have clean borders, appears to have good granulation tissue. 4. Cardiomyopathy Likely etiology of recurrent effusions and need for repeat thoracentesis. Last thoracentesis was at [facility] in September 2016, pt states they removed approximately 500cc fluid. Echocardiogram demonstrated an estimated EF of 10-15 %. She is very sensitive to fluid overload, hydrate with caution. She is not having any increased shortness of breath or an increase in oxygen requirements, she remains on 2 L per nasal cannula. She does have a LifeVest defibrillator. Continue IVF for now with caution. Repeat Chest Xray PA/LAT today. Consult Dr. Gonzalez for insertion of Pleurx cath secondary to recurrent effusions--he is agreeable to schedule the patient for tomorrow. Discussed Palliative care with patient and family, she is willing to have them evaluate her for continued care. Plan: Repeat CXR today, if worse may need to decrease or hold her IVF. Consult Dr. Gonzalez- possible Pleurx cath insertion. Consult Palliative Care. 5. Hyperlipidemia Continue statin. 6. Generalized debility This has been progressively worsening. Patient currently lives at [facility] and wants to return home. Again, consulting Palliative Care 7. Anxiety 8. Malnutrition secondary to poor oral intake Patient did have a swallowing eval on 11/08, it was recommended she have regular textures and thin liquids with ongoing speech therapy. She does not have an appetite but is able to drink some of the supplements. Reinforced importance of nutrition with her decubitus ulcer. 9. GERD 10. Macrocytic anemia/Pancytopenia Hemoglobin 7.9 on admit, has improved to 9.9. Continue to monitor, will repeat CBC a.m. 11. Paroxysmal atrial fibrillation Controlled rate, currently SR with BBB. Not anticoagulated, continue amiodarone. Patient is anemic. The patient will likely require further halfway therapy. Hospice and palliative care will evaluate, further recommendations can be made after consultation.
[2016-11-09] MEDS: Tolterodine Tartrate 2 MG CAP.SA PO (10:40)
[2016-11-09] MEDS: Loratadine 10 MG Tablet PO (10:40)
[2016-11-09] MEDS: Amiodarone 200 MG Tablet PO (10:40)
--- NOTE | 2016-11-09 12:28 | CASEMGMT ---
ADRIÁN spoke with bebe at [facility] and she asked when patient will be ready. ADRIÁN told her will have to get back to her and let her know. Qing DE LA TORRE MSW
--- NOTE | 2016-11-09 12:58 | RAD_ITS ---
STUDY: X-RAY CHEST REASON FOR EXAM: Female, 66 years old. Pleural effusion TECHNIQUE: Frontal and lateral views of the chest. COMPARISON: 11/07/2016. FINDINGS: Normal lung volumes. Prominent density in both mid and lower lung salcido worse on the right. Findings probably represent combinations of pleural-parenchymal scarring, atelectasis, possible infiltrates, and pleural effusions. The pleural effusion on the right is considered moderate, the pleural effusion on the left is considered small. Sternal cerclage wires and vascular clips are present from a prior sternotomy and coronary artery bypass graft procedure (CABG). Mild cardiomegaly. Normal mediastinum and sharifa. Normal visualized pulmonary arteries. Normal visualized aortic arch and descending thoracic aorta. There are diffuse degenerative changes of the visualized thoracic spine. Normal visualized ribs, clavicles, and shoulders. There is no demonstrated abnormality of the visualized soft tissue structures of the upper abdomen. RAD/Chest PA and Lateral IMPRESSION: Bilateral abnormalities including probable atelectasis or infiltrate and pleural effusions worse on the right. Electronically Signed: Issac Patel MD at 16:09 EDT , Service support ,
--- NOTE | 2016-11-09 14:22 | CASEMGMT ---
ADRIÁN called Teresita at [facility] back after speaking with Nurs Practitioner. ADRIÁN let her know patient will be getting a pleurx catheter tomorrow along with a modified barium swallow. ADRIÁN also told her that a referral was also made to Palliative Care. ADRIÁN then faxed her [employer] note along with speech therapy documentation. She thanked ADRIÁN for the update. Plan: return to [facility] pending pre-cert and being medically ready. Qing DE LA TORRE HARDSCAPE FOREMAN
--- NOTE | 2016-11-09 17:06 | EKG12_ITS ---
Test Reason : ARRHYTHMIA Blood Pressure : / mmHG Vent. Rate : 095 BPM Atrial Rate : 082 BPM P-R Int : 000 ms QRS Dur : 158 ms QT Int : 456 ms P-R-T Axes : 000 057 223 degrees QTc Int : 573 ms Atrial fibrillation with premature ventricular or aberrantly conducted complexes Non-specific intra-ventricular conduction block Abnormal ECG When compared with ECG of 08-NOV-2016 05:45, MANUAL COMPARISON REQUIRED, DATA IS UNCONFIRMED Confirmed by CESAR CLARKE, RORO ([id number]), news editor TAMEKA WHEELER ([id number]) on 11/14/2016 2:06:43 PM Referred By: EFFIE Confirmed By:RORO GUERRERO MD
--- NOTE | 2016-11-09 17:07 | EKG12_ITS ---
Test Reason : AM Blood Pressure : / mmHG Vent. Rate : 070 BPM Atrial Rate : 070 BPM P-R Int : 142 ms QRS Dur : 138 ms QT Int : 470 ms P-R-T Axes : 038 033 193 degrees QTc Int : 507 ms Normal sinus rhythm Non-specific intra-ventricular conduction block T wave abnormality, consider inferolateral ischemia Abnormal ECG When compared with ECG of 09-NOV-2016 17:53, MANUAL COMPARISON REQUIRED, DATA IS UNCONFIRMED Confirmed by CESAR CLARKE, RORO ([id number]), acquisitions editor TAMEKA WHEELER ([id number]) on 11/14/2016 1:33:10 PM Referred By: EFFIE Confirmed By:RORO GUERRERO MD
[2016-11-09 17:41] LABS: Magnesium 2.6 mg/dL (1.8-2.4)
[2016-11-09] MEDS: Furosemide 40 MG/4 ML Vial 80 MG IV (19:17)
--- NOTE | 2016-11-09 19:33 | PCM.CONS.C ---
Problem List (1) Atrial fibrillation Status: Acute (2) Ventricular tachycardia Status: Acute (3) Systolic CHF, acute on chronic Status: Acute (4) Cardiomyopathy, ischemic Status: Chronic (5) CAD (coronary artery disease) Status: Chronic Qualifiers: Coronary Disease-Associated Artery/Lesion type: bypass graft (6) S/P CABG (coronary artery bypass graft) Status: Chronic (7) History of mitral valve replacement with bioprosthetic valve Status: Chronic (8) S/P tricuspid valve repair Status: Chronic (9) Pleural effusion Status: Chronic (10) Pancytopenia Status: Chronic (11) Acute renal insufficiency Status: Acute (12) Dehydration Status: Acute (13) Sacral decubitus ulcer, stage IV Status: Chronic Comment: L89.154 Reason for Consult Date of Consultation: 11/09/16 Reason for Consultation: Atrial fibrillation. Ventricular tachycardia. Acute systolic CHF (on chronic systolic CHF). CMP - ischemic. CAD s/p CABG. S/P MVR. S/P TV repair. Pleural effusion. Pancytopenia. Renal insufficiency - acute. Dehydration. Decubitus ulcer History of Present Illness: The patient is a 66 year old white female who is previously been followed by the [facility] cardiology group for a history of underlying CAD, CABG, ischemic mediated cardiomyopathy, chronic systolic CHF, status post mitral valve replacement, status post tricuspid valve repair, currently wearing a chronic LifeVest due to inability to have an implantable ICD placed based upon chronic underlying infectious disease related issues, recurrent right pleural effusion status post multiple thoracentesis procedures, status post left breast carcinoma requiring surgery, radiation therapy, and chemotherapy, and a underlying chronic decubitus ulcer, early referred for evaluation of acute shortness of breath/dyspnea and findings of abnormal cardiac rhythms/dysrhythmias. The patient presented to [facility] 11/08/2016 for concerns of decreased oral intake, dehydration, and acute renal insufficiency. She was placed in the hospital for further evaluation and care. She had been receiving IV fluids. Her renal function demonstrated improvement. However this afternoon she became more acutely short of breath and dyspneic. She was also noted to have a change in her underlying cardiac rhythm. She did not complain of chest discomfort. She did not complain of any obvious palpitations. There was no loss of consciousness. Her LifeVest did not discharge. She was noted on admission to have the appearance of an underlying sinus rhythm with a left bundle branch block pattern. This afternoon she noted concerns of underlying sinus rhythm with her left bundle branch block pattern with premature ventricular ectopy and episodes appearing compatible with nonsustained ventricular tachycardia. Subsequently she was noted to develop what appeared to be atrial fibrillation with an underlying left bundle branch block pattern with continued ventricular ectopy and episodes appearing compatible with nonsustained ventricular tachycardia. She was evaluated by internal medicine. She was transferred to the ICU for further evaluation and care. Since being in the ICU she was treated with a combination of agents which did include IV morphine. She states status post receiving that her breathing did improve somewhat. She has subsequently received additional medical therapy based upon her clinical condition and her objective findings. This is included IV furosemide and IV amiodarone. Since the initiation of IV amiodarone she has noted episodes appearing compatible with atrial fibrillation with an underlying left bundle branch block pattern. There are still been episodes appearing compatible with nonsustained ventricular tachycardia. Again she does not these episodes. The patient states that thus far she is wanted to continue medical management and support. However, status post a previous conversation with internal medicine, she is also considering requesting hospice care. Past Medical History Allergies/Adverse Reactions: Allergies codeine Allergy (Verified 11/07/16 13:03) Rash docetaxel [From Taxotere] Allergy (Verified 11/07/16 17:20) skin peeled from hands and feet-lips and throat blistered Penicillins [PCN] Allergy (Verified 11/07/16 13:03) Rash adhesive Adverse Reaction (Verified 11/07/16 13:03) Rash Home Medications: Ambulatory Orders Medication Instructions Recorded Albuterol Aerosols [Ventolin 2.5 mg INHALATION Q4H PRN PRN 02/08/15 Aerosols] Amiodarone HCl [Cordarone] 200 mg PO DAILY 02/08/15 Aspirin [Aspirin, Baby] 81 mg PO DAILY@0800 02/08/15 BusPIRone [Buspar] 5 mg PO BID 02/08/15 Lactobacillus Acidophilus/Fos 1 each PO DAILY 02/08/15 [Acidophilus Probiotic Tablet] Mirtazapine 7.5 mg PO QHS 02/08/15 Multivitamins,Ther W-Minerals 1 tablet PO DAILY 02/08/15 [Multivitamin With Minerals] Pantoprazole Sodium [Protonix] 40 mg PO DAILY 02/08/15 Simvastatin [Zocor] 10 mg PO QHS 02/08/15 Acetic Acid 30 ml IR BID 05/24/15 Bisacodyl [Laxative Suppository] 10 mg RC DAILY PRN 05/24/15 Benzonatate [Tessalon Perle] 100 mg PO 4X/DAY PRN PRN 09/25/16 Docusate Calcium [Surfak] 240 mg PO DAILY 09/25/16 Fexofenadine HCl 90 mg PO DAILY 09/25/16 Fluticasone 0.05% [Flonase Nasal 2 spray NASAL DAILY 09/25/16 [place]] Oxybutynin [Ditropan] 10 mg PO DAILY 09/25/16 Polyethylene Glycol 3350 [Miralax] 17 gm PO DAILY 09/25/16 Promethazine/Dextromethorphan 10 ml PO QHS 09/25/16 [Promethazine-Dm Syrup] Acetaminophen [Tylenol Extra 500 mg PO Q8H PRN 11/07/16 Strength] Krish Antifungal Cream 2% 1 applicatio TOPICAL BID 11/07/16 Calcium Polycarbophil [Fiber-Caps] 2 cap PO BID 11/07/16 Doxycycline [Vibramycin] 100 mg PO BID 11/07/16 Furosemide [Lasix] 40 mg PO DAILY 11/07/16 Guaifenesin Dm [Robitussin Dm] 5 ml PO Q4H PRN 11/07/16 Ketoconazole [Nizoral] 1 applic TOPICAL QHS 11/07/16 Lactose-Reduced Food [Boost Breeze] 237 ml PO BID 11/07/16 Lisinopril [Zestril] 2.5 mg PO DAILY 11/07/16 Magnesium Hydroxide [Milk Of 30 ml PO DAILY PRN PRN 11/07/16 Magnesia] Melatonin 5 mg PO QHS PRN 11/07/16 Metoprolol(XL)Succ [Toprol Xl 25 mg PO DAILY 11/07/16 (Beta Naomi)] Nutritional Supplement [Luis - 1 packet PO BIDCM 11/07/16 ORANGE FLAVOR] Nystatin Powder [Mycostatin Powder] 1 applic TOPICAL BID PRN 11/07/16 Ondansetron HCl [Zofran] 4 mg PO Q4H PRN 11/07/16 Potassium Chloride [Klor-Con] 25 meq PO DAILY 11/07/16 Protein Supplement [Prosource] 1 oz PO TID 11/07/16 Saliva Substitute Combo No.9 1 applicatio MM BID 11/07/16 [Biotene] Past Medical History (Chronic Problems): Chronic Problems CAD (coronary artery disease) (Chronic) Cardiomyopathy (Chronic) Cardiomyopathy, ischemic (Chronic) History of mitral valve replacement with bioprosthetic valve (Chronic) Pancytopenia (Chronic) Pleural effusion (Chronic) S/P CABG (coronary artery bypass graft) (Chronic) S/P tricuspid valve repair (Chronic) History of MRSA infection (Chronic) Z86.14 Malnutrition of moderate degree (Chronic) E44.0 malnutrition, moderate, unspecified. Other chronic osteomyelitis, other site (Chronic) M86.68 clinical chronic osteomyelitis sacral bone Sacral decubitus ulcer, stage IV (Chronic) L89.154 Surgical History: arthroscopy, knee - for septic right knee., coronary bypass surgery - in 1994, mastectomy - left partial mastectomy with radiation and chemotherapy in 2008., - - Mitral valve replacement-bioprosthetic and tricuspid valve repair-2013. Endovascular revascularization right lower extremity. 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 Denies: Fever, Night Sweats Cardiovascular: Reports: Shortness of Breath, Shortness of Breath at Rest, Orthopnea, PND. Denies: Chest Discomfort, Peripheral Edema, Palpitations, Lightheadedness, Dizziness, Near Syncope, Syncope Respiratory: Denies: Cough, Sputum Production, Hemoptysis Gastrointestinal: Denies: Hematemesis, Hematochezia, Melena Genitourinary: Denies: Dysuria, Hematuria Skin: Denies: Rash Subjectve: This is a 66-year-old white female who appears to be short of breath and dyspneic wearing an O2 facemask at this time. Objective: Vital Signs Temp Pulse Resp BP Pulse Ox 98.9 F 106 37 96/73 95 11/09/16 18:44 11/09/16 18:44 11/09/16 18:44 11/09/16 18:44 11/09/16 18:44 Oxygen Flow Rate 15 Oxygen Delivery Method Non-Rebreather Weight: 70.488 kg Body Mass Index (BMI) 25.0 Intake and Output for Last 24 Hours 11/07/16 11/08/16 11/09/16 23:59 23:59 23:59 Intake Total 840 3629 1689 Output Total 1200 3000 1175 Balance -360 629 514 General: Awake, Alert, Oriented x 3, Cooperative, Ill Appearing Neck: Positive JVD Lungs: Diminished Right Base, Rales - Mohit Bases Cardiovascular: Irregular Rhythm, Normal S1, Normal S2 Vascular: No Carotid Bruits Abdomen: Bowel Sounds Present, Soft, Non Tender Extremities: No edema 11/09/16 06:36: WBC 3.9 L, RBC 3.20 L, Hgb 9.9 L, Hct 31.7 L, MCV 99.1 H, MCH 30.9, MCHC 31.2 L, RDW 16.8 H, RDW Differential 58.8 H, Plt Count 84 L, MPV 11.1, Immature Gran % (Auto) 0.300, Neut % (Auto) 70.3 H, Lymph % (Auto) 17.1 L, [place] % (Auto) 8.2, Eos % (Auto) 3.8, Baso % (Auto) 0.3, Absolute Neuts (auto) 2.8, Total Counted Not Reportable 11/09/16 06:36: Sodium 142, Potassium 4.8, Chloride 108 H, Carbon Dioxide 31.0, Anion Gap 3 L, BUN 106 H*, Creatinine 1.20 H, Est GFR (MDRD) Af Amer 58 L, Est GFR (MDRD) Non-Af 48 L, BUN/Creatinine Ratio 88.3 H, Glucose 97, Calcium 9.2 11/09/16 06:36: Magnesium 2.6 H, Troponin I 0.18 H Rhythm: As noted above EKG: As noted above ECHO: 2016: Left ventricle: Severely dilated with global left ventricular systolic dysfunction with an estimated LVEF of 10-15%; right ventricle moderately dilated; severe left atrial enlargement; mild right atrial enlargement; bioprosthetic mitral valve; mild TR; mild diffuse aortic valve thickening with trivial AI; trivial GA; mild atherosclerosis of the aortic arch; estimated RV systolic pressure 50 mmHg compatible with pulmonary hypertension Cardiac Cath: 10/05/2016: [facility]: Reported as demonstrating the left main coronary artery to be 99% occluded; proximal LAD to be occluded; the LCx to be proximally occluded; the RCA to be proximally occluded; the JACOBSON to the LAD to be patent; the SVG to the right PDA to be occluded: Medical therapy recommended CXR: Preliminary evaluation: Status post open heart surgery changes; increased pulmonary vascularity; right-sided pleural effusion Assessment/Plan 1. Atrial fibrillation The patient has demonstrated findings compatible with atrial fibrillation. The etiology may be multifactorial secondary to a combination of age, underlying cardiovascular disease, pulmonary disease, etc. The patient may not tolerate this well secondary to loss of the atrial kick and further compromise of her already severely compromised left ventricle with respect to severe diminished LV systolic function. At the present time the patient is being monitored. She will be treated with rate control therapy as tolerated. She has been placed on antiarrhythmic therapy with IV amiodarone and attempt to regain sinus rhythm. She is not an ideal candidate for anticoagulant therapy secondary to concerns of her pancytopenia and the need for an upcoming right-sided Pleurx catheter placement on 11/10/2016 under the direction of Dr. Gonzalez. 2. Ventricular tachycardia The patient has demonstrated episodes of nonsustained ventricular tachycardia. It is unclear whether this is new for her versus chronic. At the present time the certainly could be secondary to her underlying ischemic mediated cardiac condition/cardiomyopathy. The patient is being monitored. She is being treated medically. She has been on beta-naomi therapy and will be placed back on beta-naomi therapy as tolerated. She has also been placed on antiarrhythmic therapy with IV amiodarone. She is currently wearing a LifeVest which has not discharge. 3. Acute on chronic systolic CHF The patient has a history of chronic systolic CHF. She now appears to have developed acute symptoms which may be secondary to a combination of factors including her recent IV fluids as well as her alteration in her underlying cardiac rate and rhythm. This is all superimposed upon her diminished LV systolic function. At the present time she is being monitored. She is being supported with oxygen therapy. Her cardiovascular condition is being evaluated and treated as deemed appropriate. Her IV fluids and then discontinued. She is also being treated with IV diuretics at this time. 4. CAD status post CABG He does have a history of underlying CAD and underwent CABG in 1994. According to her most recent cardiac catheterization report it appears there were 2 g commented upon. The JACOBSON to the LAD was patent and the SVG to the right PDA was occluded. It appears that she was delegated to conservative medical management based upon her recent extensive [facility] cardiology evaluation. She was not deemed a candidate for any additional attempts at revascularization therapy. 5. Mitral valve replacement She appears to undergone mitral valve replacement with a bioprosthetic mitral valve in 2013. This was assessed by echocardiogram. It was reported as stable. 6. Tricuspid valve repair [place] to her [facility] medical record she also underwent tricuspid valve repair in 2013. According to her echocardiogram performed at [facility] she has mild tricuspid valve regurgitation. 7. Pleural effusion She does have a chronic right-sided pleural effusion. It appears she is gone through multiple thoracentesis procedures. She is pending placement of a Pleurx catheter on 11/10/[address] Gonzalez for symptomatic improvement in quality of life issues. 8. Pancytopenia She does have pancytopenia. She was markedly anemic on admission. She has received PRBCs. Her hemoglobin has increased. Hopefully this will help her oxygen carrying capacity. The same time she has thrombocytopenia. Thus, between concerns of her anemia and thrombocytopenia does make it more challenging to proceed with systemic anticoagulant therapy. 9. Acute renal insufficiency She did present with evidence of acute renal insufficiency. It was thought this was related to decreased oral intake and dehydration. She has received IV hydration her renal insufficiency has improved. 10. Dehydration This is thought to be secondary to decreased oral intake. 11. Sacral decubitus ulcer She does have a chronic sacral decubitus ulcer. According to her medical records this is led to her being considered not a candidate for an implantable ICD placement. Overall, the present time, the patient remains in the ICU, she remains monitored, she is receiving oxygen support. She is receiving medical management for her aforementioned conditions which include, as tolerated, combination of beta-blockers, diuretics, and antiarrhythmic therapy. Unfortunately, based upon the patient's complex cardiovascular medical history, her overall prognosis is poor. This has been discussed with her by both internal medicine and cardiology. At the present time she is requested to be a DNR. She is also considering hospice therapy. Comment: The above was discussed with Dr. Nayak of the [facility] Hospitalist staff and Dr. Gonzalez of [facility] [place] who for continuity of care purposes was able to assist in retrieving / providing additional [facility] information regarding the patient's cardiovascular evaluation and care. This note was generated with [employer] dictation software. It may contain incorrect words, spelling, and punctuation that were not noted in checking the note before signing.
--- NOTE | 2016-11-09 19:45 | CON.PCM_ITS ---
Problem List (1) Atrial fibrillation Status: Acute (2) Ventricular tachycardia Status: Acute (3) Systolic CHF, acute on chronic Status: Acute (4) Cardiomyopathy, ischemic Status: Chronic (5) CAD (coronary artery disease) Status: Chronic Qualifiers: Coronary Disease-Associated Artery/Lesion type: bypass graft (6) S/P CABG (coronary artery bypass graft) Status: Chronic (7) History of mitral valve replacement with bioprosthetic valve Status: Chronic (8) S/P tricuspid valve repair Status: Chronic (9) Pleural effusion Status: Chronic (10) Pancytopenia Status: Chronic (11) Acute renal insufficiency Status: Acute (12) Dehydration Status: Acute (13) Sacral decubitus ulcer, stage IV Status: Chronic Comment: L89.154 Reason for Consult Date of Consultation: 11/09/16 Reason for Consultation: Atrial fibrillation. Ventricular tachycardia. Acute systolic CHF (on chronic systolic CHF). CMP - ischemic. CAD s/p CABG. S/P MVR. S/P TV repair. Pleural effusion. Pancytopenia. Renal insufficiency - acute. Dehydration. Decubitus ulcer History of Present Illness: The patient is a 66 year old white female who is previously been followed by the [facility] cardiology group for a history of underlying CAD, CABG, ischemic mediated cardiomyopathy, chronic systolic CHF, status post mitral valve replacement, status post tricuspid valve repair, currently wearing a chronic LifeVest due to inability to have an implantable ICD placed based upon chronic underlying infectious disease related issues, recurrent right pleural effusion status post multiple thoracentesis procedures, status post left breast carcinoma requiring surgery, radiation therapy, and chemotherapy, and a underlying chronic decubitus ulcer, early referred for evaluation of acute shortness of breath/dyspnea and findings of abnormal cardiac rhythms/ dysrhythmias. The patient presented to [facility] 11/08/2016 for concerns of decreased oral intake, dehydration, and acute renal insufficiency. She was placed in the hospital for further evaluation and care. She had been receiving IV fluids. Her renal function demonstrated improvement. However this afternoon she became more acutely short of breath and dyspneic. She was also noted to have a change in her underlying cardiac rhythm. She did not complain of chest discomfort. She did not complain of any obvious palpitations. There was no loss of consciousness. Her LifeVest did not discharge. She was noted on admission to have the appearance of an underlying sinus rhythm with a left bundle branch block pattern. This afternoon she noted concerns of underlying sinus rhythm with her left bundle branch block pattern with premature ventricular ectopy and episodes appearing compatible with nonsustained ventricular tachycardia. Subsequently she was noted to develop what appeared to be atrial fibrillation with an underlying left bundle branch block pattern with continued ventricular ectopy and episodes appearing compatible with nonsustained ventricular tachycardia. She was evaluated by internal medicine. She was transferred to the ICU for further evaluation and care. Since being in the ICU she was treated with a combination of agents which did include IV morphine. She states status post receiving that her breathing did improve somewhat. She has subsequently received additional medical therapy based upon her clinical condition and her objective findings. This is included IV furosemide and IV amiodarone. Since the initiation of IV amiodarone she has noted episodes appearing compatible with atrial fibrillation with an underlying left bundle branch block pattern. There are still been episodes appearing compatible with nonsustained ventricular tachycardia. Again she does not these episodes. The patient states that thus far she is wanted to continue medical management and support. However, status post a previous conversation with internal medicine, she is also considering requesting hospice care. Past Medical History Allergies/Adverse Reactions: Allergies codeine Allergy (Verified 11/07/16 13:03) Rash docetaxel [From Taxotere] Allergy (Verified 11/07/16 17:20) skin peeled from hands and feet-lips and throat blistered Penicillins [PCN] Allergy (Verified 11/07/16 13:03) Rash adhesive Adverse Reaction (Verified 11/07/16 13:03) Rash Home Medications: Ambulatory Orders Medication Instructions Recorded Albuterol Aerosols [Ventolin 2.5 mg INHALATION Q4H PRN PRN 02/08/15 Aerosols] Amiodarone HCl [Cordarone] 200 mg PO DAILY 02/08/15 Aspirin [Aspirin, Baby] 81 mg PO DAILY@0800 02/08/15 BusPIRone [Buspar] 5 mg PO BID 02/08/15 Lactobacillus Acidophilus/Fos 1 each PO DAILY 02/08/15 [Acidophilus Probiotic Tablet] Mirtazapine 7.5 mg PO QHS 02/08/15 Multivitamins,Ther W-Minerals 1 tablet PO DAILY 02/08/15 [Multivitamin With Minerals] Pantoprazole Sodium [Protonix] 40 mg PO DAILY 02/08/15 Simvastatin [Zocor] 10 mg PO QHS 02/08/15 Acetic Acid 30 ml IR BID 05/24/15 Bisacodyl [Laxative Suppository] 10 mg RC DAILY PRN 05/24/15 Benzonatate [Tessalon Perle] 100 mg PO 4X/DAY PRN PRN 09/25/16 Docusate Calcium [Surfak] 240 mg PO DAILY 09/25/16 Fexofenadine HCl 90 mg PO DAILY 09/25/16 Fluticasone 0.05% [Flonase Nasal 2 spray NASAL DAILY 09/25/16 Momence] Oxybutynin [Ditropan] 10 mg PO DAILY 09/25/16 Polyethylene Glycol 3350 [Miralax] 17 gm PO DAILY 09/25/16 Promethazine/Dextromethorphan 10 ml PO QHS 09/25/16 [Promethazine-Dm Syrup] Acetaminophen [Tylenol Extra 500 mg PO Q8H PRN 11/07/16 Strength] Krish Antifungal Cream 2% 1 applicatio TOPICAL BID 11/07/16 Calcium Polycarbophil [Fiber-Caps] 2 cap PO BID 11/07/16 Doxycycline [Vibramycin] 100 mg PO BID 11/07/16 Furosemide [Lasix] 40 mg PO DAILY 11/07/16 Guaifenesin Dm [Robitussin Dm] 5 ml PO Q4H PRN 11/07/16 Ketoconazole [Nizoral] 1 applic TOPICAL QHS 11/07/16 Lactose-Reduced Food [Boost Breeze] 237 ml PO BID 11/07/16 Lisinopril [Zestril] 2.5 mg PO DAILY 11/07/16 Magnesium Hydroxide [Milk Of 30 ml PO DAILY PRN PRN 11/07/16 Magnesia] Melatonin 5 mg PO QHS PRN 11/07/16 Metoprolol(XL)Succ [Toprol Xl 25 mg PO DAILY 11/07/16 (Beta Naomi)] Nutritional Supplement [Luis - 1 packet PO BIDCM 11/07/16 ORANGE FLAVOR] Nystatin Powder [Mycostatin Powder] 1 applic TOPICAL BID PRN 11/07/16 Ondansetron HCl [Zofran] 4 mg PO Q4H PRN 11/07/16 Potassium Chloride [Klor-Con] 25 meq PO DAILY 11/07/16 Protein Supplement [Prosource] 1 oz PO TID 11/07/16 Saliva Substitute Combo No.9 1 applicatio MM BID 11/07/16 [Biotene] Past Medical History (Chronic Problems): Chronic Problems CAD (coronary artery disease) (Chronic) Cardiomyopathy (Chronic) Cardiomyopathy, ischemic (Chronic) History of mitral valve replacement with bioprosthetic valve (Chronic) Pancytopenia (Chronic) Pleural effusion (Chronic) S/P CABG (coronary artery bypass graft) (Chronic) S/P tricuspid valve repair (Chronic) History of MRSA infection (Chronic) Z86.14 Malnutrition of moderate degree (Chronic) E44.0 malnutrition, moderate, unspecified. Other chronic osteomyelitis, other site (Chronic) M86.68 clinical chronic osteomyelitis sacral bone Sacral decubitus ulcer, stage IV (Chronic) L89.154 Surgical History: arthroscopy, knee - for septic right knee., coronary bypass surgery - in 1994, mastectomy - left partial mastectomy with radiation and chemotherapy in 2008., - - Mitral valve replacement-bioprosthetic and tricuspid valve repair-2013. Endovascular revascularization right lower extremity. 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 Denies: Fever, Night Sweats Cardiovascular: Reports: Shortness of Breath, Shortness of Breath at Rest, Orthopnea, PND. Denies: Chest Discomfort, Peripheral Edema, Palpitations, Lightheadedness, Dizziness, Near Syncope, Syncope Respiratory: Denies: Cough, Sputum Production, Hemoptysis Gastrointestinal: Denies: Hematemesis, Hematochezia, Melena Genitourinary: Denies: Dysuria, Hematuria Skin: Denies: Rash Subjectve: This is a 66-year-old white female who appears to be short of breath and dyspneic wearing an O2 facemask at this time. Objective: Vital Signs Temp Pulse Resp BP Pulse Ox 98.9 F 106 37 96/73 95 11/09/16 18:44 11/09/16 18:44 11/09/16 18:44 11/09/16 18:44 11/09/16 18:44 Oxygen Flow Rate 15 Oxygen Delivery Method Non-Rebreather Weight: 70.488 kg Body Mass Index (BMI) 25.0 Intake and Output for Last 24 Hours 11/07/16 11/08/16 11/09/16 23:59 23:59 23:59 Intake Total 840 3629 1689 Output Total 1200 3000 1175 Balance -360 629 514 General: Awake, Alert, Oriented x 3, Cooperative, Ill Appearing Neck: Positive JVD Lungs: Diminished Right Base, Rales - Mohit Bases Cardiovascular: Irregular Rhythm, Normal S1, Normal S2 Vascular: No Carotid Bruits Abdomen: Bowel Sounds Present, Soft, Non Tender Extremities: No edema 11/09/16 06:36: WBC 3.9 L, RBC 3.20 L, Hgb 9.9 L, Hct 31.7 L, MCV 99.1 H, MCH 30.9, MCHC 31.2 L, RDW 16.8 H, RDW Differential 58.8 H, Plt Count 84 L, MPV 11.1 , Immature Gran % (Auto) 0.300, Neut % (Auto) 70.3 H, Lymph % (Auto) 17.1 L, Ceiba % (Auto) 8.2, Eos % (Auto) 3.8, Baso % (Auto) 0.3, Absolute Neuts (auto) 2.8, Total Counted Not Reportable 11/09/16 06:36: Sodium 142, Potassium 4.8, Chloride 108 H, Carbon Dioxide 31.0, Anion Gap 3 L, BUN 106 H*, Creatinine 1.20 H, Est GFR (MDRD) Af Amer 58 L, Est GFR (MDRD) Non-Af 48 L, BUN/Creatinine Ratio 88.3 H, Glucose 97, Calcium 9.2 11/09/16 06:36: Magnesium 2.6 H, Troponin I 0.18 H Rhythm: As noted above EKG: As noted above ECHO: 2016: Left ventricle: Severely dilated with global left ventricular systolic dysfunction with an estimated LVEF of 10-15%; right ventricle moderately dilated; severe left atrial enlargement; mild right atrial enlargement; bioprosthetic mitral valve; mild TR; mild diffuse aortic valve thickening with trivial AI; trivial MN; mild atherosclerosis of the aortic arch ; estimated RV systolic pressure 50 mmHg compatible with pulmonary hypertension Cardiac Cath: 10/05/2016: [facility]: Reported as demonstrating the left main coronary artery to be 99% occluded; proximal LAD to be occluded; the LCx to be proximally occluded; the RCA to be proximally occluded; the JACOBSON to the LAD to be patent; the SVG to the right PDA to be occluded: Medical therapy recommended CXR: Preliminary evaluation: Status post open heart surgery changes; increased pulmonary vascularity; right-sided pleural effusion Assessment/Plan 1. Atrial fibrillation The patient has demonstrated findings compatible with atrial fibrillation. The etiology may be multifactorial secondary to a combination of age, underlying cardiovascular disease, pulmonary disease, etc. The patient may not tolerate this well secondary to loss of the atrial kick and further compromise of her already severely compromised left ventricle with respect to severe diminished LV systolic function. At the present time the patient is being monitored. She will be treated with rate control therapy as tolerated. She has been placed on antiarrhythmic therapy with IV amiodarone and attempt to regain sinus rhythm. She is not an ideal candidate for anticoagulant therapy secondary to concerns of her pancytopenia and the need for an upcoming right-sided Pleurx catheter placement on 11/10/2016 under the direction of Dr. Gonzalez. 2. Ventricular tachycardia The patient has demonstrated episodes of nonsustained ventricular tachycardia. It is unclear whether this is new for her versus chronic. At the present time the certainly could be secondary to her underlying ischemic mediated cardiac condition/cardiomyopathy. The patient is being monitored. She is being treated medically. She has been on beta-naomi therapy and will be placed back on beta-naomi therapy as tolerated. She has also been placed on antiarrhythmic therapy with IV amiodarone. She is currently wearing a LifeVest which has not discharge. 3. Acute on chronic systolic CHF The patient has a history of chronic systolic CHF. She now appears to have developed acute symptoms which may be secondary to a combination of factors including her recent IV fluids as well as her alteration in her underlying cardiac rate and rhythm. This is all superimposed upon her diminished LV systolic function. At the present time she is being monitored. She is being supported with oxygen therapy. Her cardiovascular condition is being evaluated and treated as deemed appropriate. Her IV fluids and then discontinued. She is also being treated with IV diuretics at this time. 4. CAD status post CABG He does have a history of underlying CAD and underwent CABG in 1994. According to her most recent cardiac catheterization report it appears there were 2 g commented upon. The JACOBSON to the LAD was patent and the SVG to the right PDA was occluded. It appears that she was delegated to conservative medical management based upon her recent extensive [facility] cardiology evaluation. She was not deemed a candidate for any additional attempts at revascularization therapy. 5. Mitral valve replacement She appears to undergone mitral valve replacement with a bioprosthetic mitral valve in 2013. This was assessed by echocardiogram. It was reported as stable. 6. Tricuspid valve repair [place] to her [facility] medical record she also underwent tricuspid valve repair in 2013. According to her echocardiogram performed at [facility] she has mild tricuspid valve regurgitation. 7. Pleural effusion She does have a chronic right-sided pleural effusion. It appears she is gone through multiple thoracentesis procedures. She is pending placement of a Pleurx catheter on 11/10/[address] Gonzalez for symptomatic improvement in quality of life issues. 8. Pancytopenia She does have pancytopenia. She was markedly anemic on admission. She has received PRBCs. Her hemoglobin has increased. Hopefully this will help her oxygen carrying capacity. The same time she has thrombocytopenia. Thus, between concerns of her anemia and thrombocytopenia does make it more challenging to proceed with systemic anticoagulant therapy. 9. Acute renal insufficiency She did present with evidence of acute renal insufficiency. It was thought this was related to decreased oral intake and dehydration. She has received IV hydration her renal insufficiency has improved. 10. Dehydration This is thought to be secondary to decreased oral intake. 11. Sacral decubitus ulcer She does have a chronic sacral decubitus ulcer. According to her medical records this is led to her being considered not a candidate for an implantable ICD placement. Overall, the present time, the patient remains in the ICU, she remains monitored , she is receiving oxygen support. She is receiving medical management for her aforementioned conditions which include, as tolerated, combination of beta- blockers, diuretics, and antiarrhythmic therapy. Unfortunately, based upon the patient's complex cardiovascular medical history, her overall prognosis is poor. This has been discussed with her by both internal medicine and cardiology. At the present time she is requested to be a DNR. She is also considering hospice therapy. Comment: The above was discussed with Dr. Nayak of the [facility] Hospitalist staff and Dr. Gonzalez of [facility] [place] who for continuity of care purposes was able to assist in retrieving / providing additional [facility] information regarding the patient's cardiovascular evaluation and care. This note was generated with [employer] dictation software. It may contain incorrect words, spelling, and punctuation that were not noted in checking the note before signing.
[2016-11-09] MEDS: 0.9% NaCl Peripheral Flush Adult/Peds IV ×3 (19:57→20:13)
[2016-11-09] MEDS: Mirtazapine 15 MG Tablet 7.5 MG PO (21:21)
[2016-11-09] MEDS: Pantoprazole Sodium 40 MG Tablet PO (21:21)
[2016-11-09] MEDS: Atorvastatin Calcium 10 MG Tablet 5 MG PO (21:22)
[2016-11-09 22:34] LABS: Probe Check PASS
[2016-11-09 22:36] LABS: M R Staph aureus DNA By PCR POSITIVE (Negative)
--- NOTE | 2016-11-09 23:55 | NURSING ---
pt did not want to be turned at this time.
--- NOTE | 2016-11-09 23:55 | NURSING ---
patient denies pain at this time.
[2016-11-10] VITALS (33 sets, daily range): BP systolic 80–114; BP diastolic 46–72; PULSE 66–95; RESP 16–26; TEMP 36.2–37.3; O2SAT 93–100; BMI 25.2
--- NOTE | 2016-11-10 03:38 | CPS ---
Placed pt on 5 lpm nasal cannula
--- NOTE | 2016-11-10 06:34 | CON.PCM_ITS ---
Reason for Consult Date of Consultation: 11/10/16 Reason for Consultation: Acute on chronic respiratory failure History of Present Illness: The patient is a 66-year-old female, with a history as outlined below, who presented to the emergency department on November 07 with complaints of inability to tolerate p.o. intake, nausea, vomiting and abnormal renal function labs. The patient has a known history of coronary artery disease for which she is status post CABG, along with chronic systolic heart failure and atrial fibrillation. The patient was recently admitted to [facility] for decompensated heart failure and since September has required several ultrasound-guided thoracenteses due to a reaccumulating pleural effusion. On the afternoon of November 09 the patient developed worsening shortness of breath. At that time she reportedly was in atrial fibrillation with periodic bursts of nonsustained V. tach. She required the initiation of a nonrebreather mask to maintain appropriate oxygen saturations. She was treated with amiodarone and transferred to the medical intensive care unit. No issues were noted overnight. The patient did receive IV Lasix last evening. This morning, she is afebrile hemodynamically stable, maintaining appropriate oxygen saturations on 5 L via nasal cannula. There are tentative plans for the patient to undergo Pleurx catheter placement by Dr. Lopez, given the recurrence of her pleural effusions. Past Medical History Past Medical History (Chronic Problems): Chronic Problems CAD (coronary artery disease) (Chronic) Cardiomyopathy (Chronic) Cardiomyopathy, ischemic (Chronic) History of mitral valve replacement with bioprosthetic valve (Chronic) Pancytopenia (Chronic) Pleural effusion (Chronic) S/P CABG (coronary artery bypass graft) (Chronic) S/P tricuspid valve repair (Chronic) History of MRSA infection (Chronic) Z86.14 Malnutrition of moderate degree (Chronic) E44.0 malnutrition, moderate, unspecified. Other chronic osteomyelitis, other site (Chronic) M86.68 clinical chronic osteomyelitis sacral bone Sacral decubitus ulcer, stage IV (Chronic) L89.154 Allergies codeine Allergy (Verified 11/07/16 13:03) Rash docetaxel [From Taxotere] Allergy (Verified 11/07/16 17:20) skin peeled from hands and feet-lips and throat blistered Penicillins [PCN] Allergy (Verified 11/07/16 13:03) Rash adhesive Adverse Reaction (Verified 11/07/16 13:03) Rash Home Medications: Ambulatory Orders Medication Instructions Recorded Albuterol Aerosols [Ventolin 2.5 mg INHALATION Q4H PRN PRN 02/08/15 Aerosols] Amiodarone HCl [Cordarone] 200 mg PO DAILY 02/08/15 Aspirin [Aspirin, Baby] 81 mg PO DAILY@0800 02/08/15 BusPIRone [Buspar] 5 mg PO BID 02/08/15 Lactobacillus Acidophilus/Fos 1 each PO DAILY 02/08/15 [Acidophilus Probiotic Tablet] Mirtazapine 7.5 mg PO QHS 02/08/15 Multivitamins,Ther W-Minerals 1 tablet PO DAILY 02/08/15 [Multivitamin With Minerals] Pantoprazole Sodium [Protonix] 40 mg PO DAILY 02/08/15 Simvastatin [Zocor] 10 mg PO QHS 02/08/15 Acetic Acid 30 ml IR BID 05/24/15 Bisacodyl [Laxative Suppository] 10 mg RC DAILY PRN 05/24/15 Benzonatate [Tessalon Perle] 100 mg PO 4X/DAY PRN PRN 09/25/16 Docusate Calcium [Surfak] 240 mg PO DAILY 09/25/16 Fexofenadine HCl 90 mg PO DAILY 09/25/16 Fluticasone 0.05% [Flonase Nasal 2 spray NASAL DAILY 09/25/16 [place]] Oxybutynin [Ditropan] 10 mg PO DAILY 09/25/16 Polyethylene Glycol 3350 [Miralax] 17 gm PO DAILY 09/25/16 Promethazine/Dextromethorphan 10 ml PO QHS 09/25/16 [Promethazine-Dm Syrup] Acetaminophen [Tylenol Extra 500 mg PO Q8H PRN 11/07/16 Strength] Krish Antifungal Cream 2% 1 applicatio TOPICAL BID 11/07/16 Calcium Polycarbophil [Fiber-Caps] 2 cap PO BID 11/07/16 Doxycycline [Vibramycin] 100 mg PO BID 11/07/16 Furosemide [Lasix] 40 mg PO DAILY 11/07/16 Guaifenesin Dm [Robitussin Dm] 5 ml PO Q4H PRN 11/07/16 Ketoconazole [Nizoral] 1 applic TOPICAL QHS 11/07/16 Lactose-Reduced Food [Boost Breeze] 237 ml PO BID 11/07/16 Lisinopril [Zestril] 2.5 mg PO DAILY 11/07/16 Magnesium Hydroxide [Milk Of 30 ml PO DAILY PRN PRN 11/07/16 Magnesia] Melatonin 5 mg PO QHS PRN 11/07/16 Metoprolol(XL)Succ [Toprol Xl 25 mg PO DAILY 11/07/16 (Beta Naomi)] Nutritional Supplement [Luis - 1 packet PO BIDCM 11/07/16 ORANGE FLAVOR] Nystatin Powder [Mycostatin Powder] 1 applic TOPICAL BID PRN 11/07/16 Ondansetron HCl [Zofran] 4 mg PO Q4H PRN 11/07/16 Potassium Chloride [Klor-Con] 25 meq PO DAILY 11/07/16 Protein Supplement [Prosource] 1 oz PO TID 11/07/16 Saliva Substitute Combo No.9 1 applicatio MM BID 11/07/16 [Biotene] Surgical History: arthroscopy, knee - for septic right knee., coronary bypass surgery - in 1994, mastectomy - left partial mastectomy with radiation and chemotherapy in 2008., - - Mitral valve replacement-bioprosthetic and tricuspid valve repair-2013. Endovascular revascularization right lower extremity. 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: No pertinent THERAPY COORDINATOR history Lives: Residential Smoking Status: Never smoker Tobacco Use: Non-smoker Alcohol: None Drugs: None - *Family History Paternal History Items: - - Healthy, currently 84 years of age Maternal History Items: - - Healthy, currently 81 years of age Review of Systems Constitutional: Denies: Chills, Fever Eyes: Denies: Blurred vision, Double vision HEENT: Denies: Head Aches, Sinus Congestion, Sinus Drainage Cardiovascular: Denies: Chest Pain, Palpitations Respiratory: Reports: Shortness of Breath Gastrointestinal: Denies: Abdominal Pain, Nausea, Vomiting Genitourinary: Denies: Dysuria Musculoskeletal: Denies: Joint Pain, Joint Tenderness Skin: Denies: Rash, Wounds Neurological: Denies: Numbness, Tingling, Focal weakness Psychiatric: Reports: Anxiety Hematologic/ Lymphatic: Reports: Anemia Patient Problems: Active and Suspected Problems LINDA (acute kidney injury) (Acute) Acute renal insufficiency (Acute) Anemia, macrocytic (Acute) Atrial fibrillation (Acute) Dehydration (Acute) Intractable nausea and vomiting (Acute) Stage 4 pressure ulcer (Acute) Systolic CHF, acute on chronic (Acute) Ventricular tachycardia (Acute) Objective: The patient's most recent lab work, culture data and imaging studies have all been personally reviewed. Urine culture dated November 07 was positive for mixed gram-positive organisms. Stool occult blood was noted to be positive. - Physical Exam General: Alert, Cooperative, No apparent distress HEENT: Atraumatic, Normocephalic Oral: No Gingival or Mucosal Lesions/ Ulcerations, Dry Mucosa Neck: Supple, No Nodes, Trachea Midline Lungs: No rhonchi, No wheeze, Diminished, Rales Cardiovascular: Regular rate, Regular Rhythm, Normal S1, Normal S2 Abdomen: Bowel Sounds Present, Soft, Non Tender Extremities: No clubbing, No cyanosis, No edema Skin: Ulcer/ Wound Musculoskeletal: No Tenderness to Palpation of Joints or Extremities, Muscle Wasting Lymphatic: No Cervical, Supraclavicular, or Inguinal Adenopathy Neurological: Neuro grossly intact Psych/Mental Status: Anxious Vital Signs Temp Pulse Resp BP Pulse Ox 37.2 C 74 18 91/46 97 11/10/16 04:00 11/10/16 05:00 11/10/16 05:00 11/10/16 06:13 11/10/16 05:00 Oxygen Flow Rate 6 Oxygen Delivery Method Nasal Cannula Weight: 71 kg Body Mass Index (BMI) 25.0 Intake and Output for Last 24 Hours 11/08/16 11/09/16 11/10/16 23:59 23:59 23:59 Intake Total 3629 2473 119 Output Total 3000 1675 600 Balance 629 798 -481 Microbiology Past 72 Hours 11/07/16 16:40 Urine Culture - Final Urine, Clean Catch Mixed Gram Positive Organisms 11/08/16 12:15 Stool Occult Blood (ARNOLDO) - Final Stool Occult Blood Positive Laboratory Tests Past 24 Hrs 11/09/16 11/09/16 11/09/16 06:36 06:36 06:36 WBC 3.9 L RBC 3.20 L Hgb 9.9 L Hct 31.7 L MCV 99.1 H MCH 30.9 MCHC 31.2 L RDW 16.8 H RDW Differential 58.8 H Plt Count 84 L MPV 11.1 Immature Gran % (Auto) 0.300 Neut % (Auto) 70.3 H Lymph % (Auto) 17.1 L [place] % (Auto) 8.2 Eos % (Auto) 3.8 Baso % (Auto) 0.3 Absolute Neuts (auto) 2.8 Absolute Lymphs (auto) 0.67 L Total Counted Not Reportable Sodium 142 Potassium 4.8 Chloride 108 H Carbon Dioxide 31.0 Anion Gap 3 L BUN 106 H* Creatinine 1.20 H Estim Creat Clear Calc 42.59 Est GFR (MDRD) Af Amer 58 L Est GFR (MDRD) Non-Af 48 L BUN/Creatinine Ratio 88.3 H Glucose 97 Calcium 9.2 Magnesium 2.6 H Troponin I 0.18 H MRSA (PCR) 11/09/16 11/09/16 11/10/16 19:20 19:50 00:30 WBC RBC Hgb Hct MCV MCH MCHC RDW RDW Differential Plt Count MPV Immature Gran % (Auto) Neut % (Auto) Lymph % (Auto) [place] % (Auto) Eos % (Auto) Baso % (Auto) Absolute Neuts (auto) Absolute Lymphs (auto) Total Counted Sodium Potassium Chloride Carbon Dioxide Anion Gap BUN Creatinine Estim Creat Clear Calc Est GFR (MDRD) Af Amer Est GFR (MDRD) Non-Af BUN/Creatinine Ratio Glucose Calcium Magnesium Troponin I 1.54 H* 3.26 H* MRSA (PCR) POSITIVE H 11/10/16 03:40 WBC RBC Hgb Hct MCV MCH MCHC RDW RDW Differential Plt Count MPV Immature Gran % (Auto) Neut % (Auto) Lymph % (Auto) [place] % (Auto) Eos % (Auto) Baso % (Auto) Absolute Neuts (auto) Absolute Lymphs (auto) Total Counted Sodium Potassium Chloride Carbon Dioxide Anion Gap BUN Creatinine Estim Creat Clear Calc Est GFR (MDRD) Af Amer Est GFR (MDRD) Non-Af BUN/Creatinine Ratio Glucose Calcium Magnesium Troponin I 3.31 H* MRSA (PCR) Clinical Impression(s) from Imaging Studies Chest X-Ray 11/07/16 13:23 IMPRESSION: Stable bilateral pleural-parenchymal changes worse on the right side. Vascular congestion. Electronically Signed: Anand Rodriguez MD at 14:49 EDT Tel [phone], Service support , Renal Ultrasound 11/07/16 17:44 IMPRESSION: The kidneys are normal in size and echogenicity. There is mild hydronephrosis in the left kidney. At least one stone is seen in the left kidney measuring 2 cm in the lower pole. A ureteral stone cannot be excluded on the left side. Electronically Signed: Ara Quiles MD at 22:56 EDT Tel [phone], Service support , Chest X-Ray 11/09/16 12:58 IMPRESSION: Bilateral abnormalities including probable atelectasis or infiltrate and pleural effusions worse on the right. Electronically Signed: Issac Patel MD at 16:09 EDT , Service support , Assessment/Plan Active and Suspected Problems LINDA (acute kidney injury) (Acute) Acute renal insufficiency (Acute) Anemia, macrocytic (Acute) Atrial fibrillation (Acute) Dehydration (Acute) Intractable nausea and vomiting (Acute) Stage 4 pressure ulcer (Acute) Systolic CHF, acute on chronic (Acute) Ventricular tachycardia (Acute) RECOMMENDATIONS: 1. Patient's CODE STATUS updated to DNR CCA, per Dr. Nayak's conversation. 2. Given the patient's multiple comorbidities including ischemic cardiomyopathy and recurrent pleural effusions, I agree with hospice consultation. 3. Pleurx catheter placement this afternoon. 4. Continue medical management per cardiology recommendations 5. Wean supplemental oxygen as tolerated 6. Stable for transfer out of the intensive care unit. IMPRESSIONS: 1. Acute on chronic respiratory failure Secondary to underlying ischemic cardiomyopathy, tachyarrhythmia and recurrent pleural effusion. The patient has been stabilized with improved oxygenation following amiodarone administration. There are plans for Pleurx catheter placement for palliation of symptoms this afternoon. CODE STATUS has been updated to DNR CCA. 2. Non-ST elevation NC/acute on chronic systolic heart failure/paroxysmal atrial fibrillation/coronary artery disease Continue medical management per cardiology recommendations. 3. Acute on chronic kidney injury Creatinine has stabilized at this point. Urine output remains appropriate. 4. Protein calorie malnutrition/hyperlipidemia/generalized anxiety disorder/ GERD Complicates care, management, recovery and prognosis. Continue home medications as indicated. This note was generated with 25eightation software. It may contain incorrect words, spelling, and punctuation that were not noted in checking the note before signing. Given that the patient is without any further ICU needs, will sign off. Please call with any additional questions.
[2016-11-10 06:47] LABS: Absolute Lymphocyte Count 0.92 X10^3/ul (0.83-4.51); Absolute Neutrophil Count 6.1 X10^3/uL (2.0-7.7); Basophil# 0.01 X10^3/uL; Basophil% 0.1 % (0-1); Eosinophil# 0.06 X10^3/uL; Eosinophils% 0.8 % (0-5); Hematocrit 34.7 % (37-47); Hemoglobin 10.7 g/dl (12.0-15.0); Lymphocyte # 0.92 X10^3/ul (4.0); Lymphocyte % 11.7 % (19-41); Mean Corp Hgb Conc 30.8 g/gl (32-36); Mean Corpuscular Hgb 30.4 pg (27.0-32.0); Mean Corpuscular Volume 98.6 fL (81-99); Mean Platelet Vol. 11.6 fl (6.2-12.0); Monocyte# 0.75 X10^3/uL; Monocyte% 9.6 % (0-10); Neutrophil # 6.09 X10^3/uL (2.7-7.7); Neutrophil % 77.7 % (47-70); POSITIVE COUNT NO; POSITIVE DIFFERENTIAL NO; POSITIVE MORPHOLOGY NO; Platelet Count 99 K/mm3 (150-450); RBC Distribution Width CV 16.4 % (11.6-14.6); RBC Distribution Width SD 59.2 fl (35.1-43.9); Red Blood Count 3.52 M/mm3 (4.2-5.4); White Blood Count 7.8 K/mm3 (4.4-11.0)
[2016-11-10 07:08] LABS: ALB/GLOB Ratio 0.6 RATIO (0.9-2.4); AST(SGOT) 45 U/L (15-37); Alanine Aminotransfer ALT/SGPT 23 U/L (12-78); Albumin, Serum 2.5 g/dL (3.4-5.0); Alkaline Phosphatase 107 U/L (45-117); Anion Gap 7 (5-15); BUN 95 mg/dL (7-18); BUN/Creat Ratio 59.4 RATIO (10-20); Calcium,Total 8.6 mg/dL (8.5-10.1); Chloride 98 mmol/L (98-107); EST Glomerular Filtration Rate 34 mL/min (>60); Est Glom Filt Rate - Afr Amer 41 mL/min (>60); Estimated Creatinine Clearance 31.94 ml/min; Globulin 4.1 g/dL (2.3-3.5); Glucose 334 mg/dL (70-110); Potassium 4.3 mmol/L (3.5-5.1); Protein, Total 6.6 g/dL (6.4-8.2); Sodium Level 134 mmol/L (136-145)
--- NOTE | 2016-11-10 07:30 | EKG12_ITS ---
Test Reason : TACH Blood Pressure : / mmHG Vent. Rate : 121 BPM Atrial Rate : 120 BPM P-R Int : 000 ms QRS Dur : 162 ms QT Int : 424 ms P-R-T Axes : 000 093 258 degrees QTc Int : 602 ms Atrial fibrillation with premature ventricular or aberrantly conducted complexes Non-specific intra-ventricular conduction block Abnormal ECG When compared with ECG of 09-NOV-2016 17:19, MANUAL COMPARISON REQUIRED, DATA IS UNCONFIRMED Confirmed by CESAR CLARKE, RORO ([id number]), supervising editor trailer TAMEKA WHEELER ([id number]) on 11/14/2016 2:07:26 PM Referred By: EFFIE Confirmed By:RORO GUERRERO MD
--- NOTE | 2016-11-10 07:30 | PCM.PN.CARD ---
Subjectve: The patient appears to be resting comfortably this morning. She has had no new acute complaints. She is now on O2 nasal cannula. Objective: Vital Signs Temp Pulse Resp BP Pulse Ox 98.7 F 66 17 91/46 99 11/10/16 06:00 11/10/16 06:00 11/10/16 06:00 11/10/16 06:13 11/10/16 06:00 Oxygen Flow Rate 6 Oxygen Delivery Method Nasal Cannula Weight: 71 kg Body Mass Index (BMI) 25.0 Intake and Output for Last 24 Hours 11/08/16 11/09/16 11/10/16 23:59 23:59 23:59 Intake Total 3629 2473 119 Output Total 3000 1675 600 Balance 629 568 -481 General: Awake, Alert, Oriented x 3, Cooperative, No Acute Distress Neck: Positive JVD Lungs: Diminished Right Base, - - Scattered rhonchi Cardiovascular: Regular Rhythm, Normal S1, Normal S2 Abdomen: Bowel Sounds Present, Soft, Non Tender Extremities: No edema 11/09/16 06:36: Magnesium 2.6 H, Troponin I 0.18 H 11/09/16 19:50: Troponin I 1.54 H* 11/10/16 00:30: Troponin I 3.26 H* 11/10/16 03:40: Troponin I 3.31 H* 11/10/16 06:30: WBC 7.8, RBC 3.52 L, Hgb 10.7 L, Hct 34.7 L, MCV 98.6, MCH 30.4, MCHC 30.8 L, RDW 16.4 H, RDW Differential 59.2 H, Plt Count 99 L, MPV 11.6, Immature Gran % (Auto) 0.100, Neut % (Auto) 77.7 H, Lymph % (Auto) 11.7 L, [place] % (Auto) 9.6, Eos % (Auto) 0.8, Baso % (Auto) 0.1, Absolute Neuts (auto) 6.1, Total Counted Not Reportable 11/10/16 06:30: Sodium 134 L, Potassium 4.3, Chloride 98, Carbon Dioxide 29.0, Anion Gap 7, BUN 95 H, Creatinine 1.60 H, Est GFR (MDRD) Af Amer 41 L, Est GFR (MDRD) Non-Af 34 L, BUN/Creatinine Ratio 59.4 H, Glucose 334 H, Calcium 8.6, Total Bilirubin 0.80 Rhythm: Sinus rhythm Assessment/Plan 1. Atrial fibrillation The patient has demonstrated findings compatible with atrial fibrillation. The etiology may be multifactorial secondary to a combination of age, underlying cardiovascular disease, pulmonary disease, etc. The patient has been treated medically. This included IV beta-blockers and IV amiodarone. At the present time she appears to be back in and remaining in sinus rhythm. 2. Ventricular tachycardia The patient has demonstrated episodes of nonsustained ventricular tachycardia. It is unclear whether this is new for her versus chronic. At the present time the certainly could be secondary to her underlying ischemic mediated cardiac condition/cardiomyopathy. The patient is being monitored. She is being treated medically. Her medical therapy includes IV beta-blockers and IV amiodarone. It appears her ventricular ectopy has decreased since initiating the IV amiodarone. 3. Non-ST segment elevation IL The patient's cardiac enzymes have been followed. Her troponin I levels were abnormal. This is compatible with an acute non-ST segment elevation IL. The patient does have underlying extensive coronary artery disease and graft vessel disease as previously noted. She has been extensively evaluated from a noninvasive and invasive standpoint at the [facility] in September of this year. She has been delegated to conservative medical management as she was not deemed a candidate for any further revascularization therapy. Thus at the present time she will continue to be monitored. Her cardiac enzymes will be followed. Her ECG will be followed. She will continue medical management. Ideally this would include antiplatelet therapy, anticoagulant therapy, beta-blockers, etc. However these agents will have to be adjusted around her clinical course, vital signs, and other invasive procedures from a pulmonary standpoint, etc. 4. Acute on chronic systolic CHF The patient has a history of chronic systolic CHF. She now appears to have developed acute symptoms which may be secondary to a combination of factors including her recent IV fluids as well as her alteration in her underlying cardiac rate and rhythm. This is all superimposed upon her diminished LV systolic function. At the present time she is being monitored. She is being supported with oxygen therapy. She did receive IV diuretics. She has had a positive urine output. Her O2 requirements have decreased to where she can now be on O2 nasal cannula. 5. CAD status post CABG He does have a history of underlying CAD and underwent CABG in 1994. According to her most recent cardiac catheterization report it appears there were 2 g commented upon. The JACOBSON to the LAD was patent and the SVG to the right PDA was occluded. It appears that she was delegated to conservative medical management based upon her recent extensive [facility] cardiology evaluation. She was not deemed a candidate for any additional attempts at revascularization therapy. 6. Mitral valve replacement She appears to undergone mitral valve replacement with a bioprosthetic mitral valve in 2014. This was assessed by echocardiogram. It was reported as stable. 7. Tricuspid valve repair [place] to her [facility] medical record she also underwent tricuspid valve repair in 2013. According to her echocardiogram performed at [facility] she has mild tricuspid valve regurgitation. 8. Pleural effusion She does have a chronic right-sided pleural effusion. It appears she is gone through multiple thoracentesis procedures. She is pending placement of a Pleurx catheter today by Dr. Gonzalez [facility] general surgery for symptomatic improvement in quality of life issues. 9. Pancytopenia She does have pancytopenia. She was markedly anemic on admission. She has received PRBCs. Her hemoglobin has increased. Hopefully this will help her oxygen carrying capacity. The same time she has thrombocytopenia. Thus, between concerns of her anemia and thrombocytopenia does make it more challenging to proceed with systemic anticoagulant therapy. 10. Acute renal insufficiency She did present with evidence of acute renal insufficiency. It was thought this was related to decreased oral intake and dehydration. She has received IV hydration her renal insufficiency has improved. She has now received IV diuretics. Her BUN/creatinine has started to increase again. These findings may be compatible with a cardiorenal syndrome. Could make it more challenging to manage her volume status. 11. Dehydration This is thought to be secondary to decreased oral intake. 12. Sacral decubitus ulcer She does have a chronic sacral decubitus ulcer. According to her medical records this is led to her being considered not a candidate for an implantable ICD placement. Overall, the present time, the patient remains in the ICU, she remains monitored, she is receiving oxygen support. She is receiving medical management for her aforementioned conditions which include, as tolerated, combination of beta-blockers, diuretics, and antiarrhythmic therapy. Unfortunately, based upon the patient's complex cardiovascular medical history, her overall prognosis is poor. This has been discussed with her by both internal medicine and cardiology. At the present time she is requested to be a DNR. She is also considering hospice therapy. This note was generated with Hobbyation software. It may contain incorrect words, spelling, and punctuation that were not noted in checking the note before signing.
--- NOTE | 2016-11-10 07:36 | PN.CARD_ITS ---
Subjectve: The patient appears to be resting comfortably this morning. She has had no new acute complaints. She is now on O2 nasal cannula. Objective: Vital Signs Temp Pulse Resp BP Pulse Ox 98.7 F 66 17 91/46 99 11/10/16 06:00 11/10/16 06:00 11/10/16 06:00 11/10/16 06:13 11/10/16 06:00 Oxygen Flow Rate 6 Oxygen Delivery Method Nasal Cannula Weight: 71 kg Body Mass Index (BMI) 25.0 Intake and Output for Last 24 Hours 11/08/16 11/09/16 11/10/16 23:59 23:59 23:59 Intake Total 3629 2473 119 Output Total 3000 1675 600 Balance 629 548 -481 General: Awake, Alert, Oriented x 3, Cooperative, No Acute Distress Neck: Positive JVD Lungs: Diminished Right Base, - - Scattered rhonchi Cardiovascular: Regular Rhythm, Normal S1, Normal S2 Abdomen: Bowel Sounds Present, Soft, Non Tender Extremities: No edema 11/09/16 06:36: Magnesium 2.6 H, Troponin I 0.18 H 11/09/16 19:50: Troponin I 1.54 H* 11/10/16 00:30: Troponin I 3.26 H* 11/10/16 03:40: Troponin I 3.31 H* 11/10/16 06:30: WBC 7.8, RBC 3.52 L, Hgb 10.7 L, Hct 34.7 L, MCV 98.6, MCH 30.4 , MCHC 30.8 L, RDW 16.4 H, RDW Differential 59.2 H, Plt Count 99 L, MPV 11.6, Immature Gran % (Auto) 0.100, Neut % (Auto) 77.7 H, Lymph % (Auto) 11.7 L, [place] % (Auto) 9.6, Eos % (Auto) 0.8, Baso % (Auto) 0.1, Absolute Neuts (auto) 6.1, Total Counted Not Reportable 11/10/16 06:30: Sodium 134 L, Potassium 4.3, Chloride 98, Carbon Dioxide 29.0, Anion Gap 7, BUN 95 H, Creatinine 1.60 H, Est GFR (MDRD) Af Amer 41 L, Est GFR ( MDRD) Non-Af 34 L, BUN/Creatinine Ratio 59.4 H, Glucose 334 H, Calcium 8.6, Total Bilirubin 0.80 Rhythm: Sinus rhythm Assessment/Plan 1. Atrial fibrillation The patient has demonstrated findings compatible with atrial fibrillation. The etiology may be multifactorial secondary to a combination of age, underlying cardiovascular disease, pulmonary disease, etc. The patient has been treated medically. This included IV beta-blockers and IV amiodarone. At the present time she appears to be back in and remaining in sinus rhythm. 2. Ventricular tachycardia The patient has demonstrated episodes of nonsustained ventricular tachycardia. It is unclear whether this is new for her versus chronic. At the present time the certainly could be secondary to her underlying ischemic mediated cardiac condition/cardiomyopathy. The patient is being monitored. She is being treated medically. Her medical therapy includes IV beta-blockers and IV amiodarone. It appears her ventricular ectopy has decreased since initiating the IV amiodarone. 3. Non-ST segment elevation DC The patient's cardiac enzymes have been followed. Her troponin I levels were abnormal. This is compatible with an acute non-ST segment elevation DC. The patient does have underlying extensive coronary artery disease and graft vessel disease as previously noted. She has been extensively evaluated from a noninvasive and invasive standpoint at the [facility] in September of this year. She has been delegated to conservative medical management as she was not deemed a candidate for any further revascularization therapy. Thus at the present time she will continue to be monitored. Her cardiac enzymes will be followed. Her ECG will be followed. She will continue medical management. Ideally this would include antiplatelet therapy, anticoagulant therapy, beta-blockers, etc. However these agents will have to be adjusted around her clinical course, vital signs, and other invasive procedures from a pulmonary standpoint, etc. 4. Acute on chronic systolic CHF The patient has a history of chronic systolic CHF. She now appears to have developed acute symptoms which may be secondary to a combination of factors including her recent IV fluids as well as her alteration in her underlying cardiac rate and rhythm. This is all superimposed upon her diminished LV systolic function. At the present time she is being monitored. She is being supported with oxygen therapy. She did receive IV diuretics. She has had a positive urine output. Her O2 requirements have decreased to where she can now be on O2 nasal cannula. 5. CAD status post CABG He does have a history of underlying CAD and underwent CABG in 1994. According to her most recent cardiac catheterization report it appears there were 2 g commented upon. The JACOBSON to the LAD was patent and the SVG to the right PDA was occluded. It appears that she was delegated to conservative medical management based upon her recent extensive [facility] cardiology evaluation. She was not deemed a candidate for any additional attempts at revascularization therapy. 6. Mitral valve replacement She appears to undergone mitral valve replacement with a bioprosthetic mitral valve in 2014. This was assessed by echocardiogram. It was reported as stable. 7. Tricuspid valve repair [place] to her [facility] medical record she also underwent tricuspid valve repair in 2013. According to her echocardiogram performed at [facility] she has mild tricuspid valve regurgitation. 8. Pleural effusion She does have a chronic right-sided pleural effusion. It appears she is gone through multiple thoracentesis procedures. She is pending placement of a Pleurx catheter today by Dr. [facility] general surgery for symptomatic improvement in quality of life issues. 9. Pancytopenia She does have pancytopenia. She was markedly anemic on admission. She has received PRBCs. Her hemoglobin has increased. Hopefully this will help her oxygen carrying capacity. The same time she has thrombocytopenia. Thus, between concerns of her anemia and thrombocytopenia does make it more challenging to proceed with systemic anticoagulant therapy. 10. Acute renal insufficiency She did present with evidence of acute renal insufficiency. It was thought this was related to decreased oral intake and dehydration. She has received IV hydration her renal insufficiency has improved. She has now received IV diuretics. Her BUN/creatinine has started to increase again. These findings may be compatible with a cardiorenal syndrome. Could make it more challenging to manage her volume status. 11. Dehydration This is thought to be secondary to decreased oral intake. 12. Sacral decubitus ulcer She does have a chronic sacral decubitus ulcer. According to her medical records this is led to her being considered not a candidate for an implantable ICD placement. Overall, the present time, the patient remains in the ICU, she remains monitored , she is receiving oxygen support. She is receiving medical management for her aforementioned conditions which include, as tolerated, combination of beta- blockers, diuretics, and antiarrhythmic therapy. Unfortunately, based upon the patient's complex cardiovascular medical history, her overall prognosis is poor. This has been discussed with her by both internal medicine and cardiology. At the present time she is requested to be a DNR. She is also considering hospice therapy. This note was generated with [employer] software. It may contain incorrect words, spelling, and punctuation that were not noted in checking the note before signing.
--- NOTE | 2016-11-10 08:32 | PN_ITS ---
Patient Problems: Active and Suspected Problems LINDA (acute kidney injury) (Acute) Acute renal insufficiency (Acute) Anemia, macrocytic (Acute) Atrial fibrillation (Acute) Dehydration (Acute) Intractable nausea and vomiting (Acute) Stage 4 pressure ulcer (Acute) Systolic CHF, acute on chronic (Acute) Ventricular tachycardia (Acute) Subjective: doxycycline day #4 Doing much better this AM. she is down to a nasal cannula at 6 LPM. Denies CP and tells me that the dyspnea is much improved. Denies feeling lightheaded however she is extremely tired. Denies palpitations. No nausea. She is complaining of a dry mouth. She is coughing but can not get the sputum up. the cough sounds loose. Current vital signs are temp 98.7, pulse rate 66, blood pressure 91/46, respiratory rate 17 and she is 97-99% saturated on a 6 L nasal cannula. Telemetry was reviewed. Ventricular ectopy is significantly decreased and heart rate is controlled Urine OP 11/09 was 1675 and overnight she had an additional -481. All lab was personally reviewed Troponin has been increasing. Troponin was 0.18 at the time of the acute event on 11/09. Last troponin was 3.31 and it is still increasing. Liver panel is unremarkable. Sodium is mildly decreased at 134 with a potassium of 4.3, chloride 98 and CO2 29. BUN is 95 today with a creatinine of 1.6. Fasting glucose today is 334. White blood cell count is 7.8 today, up from 3.9 yesterday. Hemoglobin is 10.7 and platelets are 99,000. Stool is heme +. Urine culture has mixed gram-positive organisms. - Physical Exam General: Alert, Oriented x3, Cooperative, - - looks much better than last night. No accessory muscle use and no pursed lip breathing. RR has decreased significantly. She appears very tired HEENT: Atraumatic, PERRLA, EOMI Oral: No Gingival or Mucosal Lesions/ Ulcerations, Dry Mucosa Neck: Supple, Trachea Midline Lungs: No rhonchi, No wheeze, Diminished - on the right jennifer., Rales, - - loose moist cough Cardiovascular: Regular rate, Regular Rhythm, Normal S1, Normal S2, No rub noted Abdomen: Bowel Sounds Present, Soft, Non Tender, Non-Distended Extremities: No cyanosis, No edema, No Calf Tenderness Skin: No rashes, Ulcer/ Wound - over the sacrum...not examined ....will examine when the wound care nurse changes the dressing Musculoskeletal: Muscle Wasting Neurological: Cranial nerves II-XII grossly intact, Neuro grossly intact Psych/Mental Status: - - less anxious today Vital Signs Temp Pulse Resp BP Pulse Ox 98.7 F 69 17 91/46 99 11/10/16 06:00 11/10/16 07:00 11/10/16 06:00 11/10/16 06:13 11/10/16 06:00 Oxygen Flow Rate 6 Oxygen Delivery Method Nasal Cannula Weight: 156 lb 8.451 oz Body Mass Index (BMI) 25.0 Intake and Output for Last 24 Hours 11/08/16 11/09/16 11/10/16 23:59 23:59 23:59 Intake Total 3629 2473 119 Output Total 3000 1675 600 Balance 629 118 -071 Microbiology Past 72 Hours 11/07/16 16:40 Urine Culture - Final Urine, Clean Catch Mixed Gram Positive Organisms 11/08/16 12:15 Stool Occult Blood (ARNOLDO) - Final Stool Occult Blood Positive Laboratory Tests Past 24 Hrs 11/09/16 11/09/16 11/09/16 06:36 19:20 19:50 WBC RBC Hgb Hct MCV MCH MCHC RDW RDW Differential Plt Count MPV Immature Gran % (Auto) Neut % (Auto) Lymph % (Auto) [place] % (Auto) Eos % (Auto) Baso % (Auto) Absolute Neuts (auto) Absolute Lymphs (auto) Total Counted Sodium Potassium Chloride Carbon Dioxide Anion Gap BUN Creatinine Estim Creat Clear Calc Est GFR (MDRD) Af Amer Est GFR (MDRD) Non-Af BUN/Creatinine Ratio Glucose Calcium Magnesium 2.6 H Total Bilirubin AST ALT Alkaline Phosphatase Troponin I 0.18 H 1.54 H* Total Protein Albumin Globulin Albumin/Globulin Ratio MRSA (PCR) POSITIVE H 11/10/16 11/10/16 11/10/16 00:30 03:40 06:30 WBC 7.8 RBC 3.52 L Hgb 10.7 L Hct 34.7 L MCV 98.6 MCH 30.4 MCHC 30.8 L RDW 16.4 H RDW Differential 59.2 H Plt Count 99 L MPV 11.6 Immature Gran % (Auto) 0.100 Neut % (Auto) 77.7 H Lymph % (Auto) 11.7 L [place] % (Auto) 9.6 Eos % (Auto) 0.8 Baso % (Auto) 0.1 Absolute Neuts (auto) 6.1 Absolute Lymphs (auto) 0.92 Total Counted Not Reportable Sodium Potassium Chloride Carbon Dioxide Anion Gap BUN Creatinine Estim Creat Clear Calc Est GFR (MDRD) Af Amer Est GFR (MDRD) Non-Af BUN/Creatinine Ratio Glucose Calcium Magnesium Total Bilirubin AST ALT Alkaline Phosphatase Troponin I 3.26 H* 3.31 H* Total Protein Albumin Globulin Albumin/Globulin Ratio MRSA (PCR) 11/10/16 06:30 WBC RBC Hgb Hct MCV MCH MCHC RDW RDW Differential Plt Count MPV Immature Gran % (Auto) Neut % (Auto) Lymph % (Auto) [place] % (Auto) Eos % (Auto) Baso % (Auto) Absolute Neuts (auto) Absolute Lymphs (auto) Total Counted Sodium 134 L Potassium 4.3 Chloride 98 Carbon Dioxide 29.0 Anion Gap 7 BUN 95 H Creatinine 1.60 H Estim Creat Clear Calc 31.94 Est GFR (MDRD) Af Amer 41 L Est GFR (MDRD) Non-Af 34 L BUN/Creatinine Ratio 59.4 H Glucose 334 H Calcium 8.6 Magnesium Total Bilirubin 0.80 AST 45 H ALT 23 Alkaline Phosphatase 107 Troponin I Total Protein 6.6 Albumin 2.5 L Globulin 4.1 H Albumin/Globulin Ratio 0.6 L MRSA (PCR) Assessment/Plan Active and Suspected Problems LINDA (acute kidney injury) (Acute) Acute renal insufficiency (Acute) Anemia, macrocytic (Acute) Atrial fibrillation (Acute) Dehydration (Acute) Intractable nausea and vomiting (Acute) Stage 4 pressure ulcer (Acute) Systolic CHF, acute on chronic (Acute) Ventricular tachycardia (Acute) Impressions 1. NSTEMI 2. acute on chronic systolic CHF 3. PAF with RVR, NSVT 3. acute on chronic respiratory failure with hypoxemia 4. pancytopenia - why? 5. heme + stool 6. extensive CAD in mutiple vessels and grafts: Not a candidate for any surgical intervention PTCA 7. MRSA colonization vs infection sacral decubitus ulcer 8. Stage 4 non-healing sacral decubitus ulcer 9. Acute renal failure on chronic stage III renal failure 10. Hyperlipidemia 11. Malnutrition 12. GERD 13. Generalized anxiety 14. Severe ischemic cardiomyopathy with a 10-15% ejection fraction: Not a candidate for an AICD due to chronic sacral wound growing MRSA 15. Hyperglycemia Plan on Pleurx catheter today for palliation. Has had to have thoracentesis X 4 in the past 4 weeks Continue amiodarone drip while NPO and also continue the IV lopressor DNR CCA entered into the computer - discussed with the patient discussed plan of tx with Dr. Krishnan today Continue the protonix......suspect the anemia is multifactorial...due to GI bleed, CRF, Transfer to PCU from PACU Check a hemoglobin A1c and order Accu-Cheks Following placement of Pleurx catheter will restart oral medications and start her on a regular diet continue with the hospice consult Keep the potassium 4 or greater Keep the magnesium at 2 or greater Incentive spirometer,PEP Sputum for Gram stain and culture Will review chest x-ray following Pleurx catheter when available If she develops a fever will treat for pneumonia Recheck lab in the a.m.
[2016-11-10] MEDS: Multivitamins,Ther W-Minerals Tablet 1 TABLET PO (10:54)
[2016-11-10] MEDS: Loratadine 10 MG Tablet PO (10:54)
[2016-11-10] MEDS: Acetaminophen 325 MG Tablet 650 MG PO ×2 (10:54→20:19)
--- NOTE | 2016-11-10 12:38 | CON.PCM_ITS ---
Problem List (1) Pleural effusion Status: Chronic Reason for Consult Date of Consultation: 11/09/16 History of Present Illness: The patient is a 66 year old F with end-stage congestive heart failure, cardiomyopathy, valvular heart disease with recurring right pleural effusions status post multiple thoracenteses. The patient still has recurring pleural effusion resistant to large doses of Lasix which is now resorted and acute renal failure. I was consult for placement of a right tunneled pleural/Pleurx catheter. Past Medical History Past Medical History (Chronic Problems): Chronic Problems CAD (coronary artery disease) (Chronic) Cardiomyopathy (Chronic) Cardiomyopathy, ischemic (Chronic) History of mitral valve replacement with bioprosthetic valve (Chronic) Pancytopenia (Chronic) Pleural effusion (Chronic) S/P CABG (coronary artery bypass graft) (Chronic) S/P tricuspid valve repair (Chronic) History of MRSA infection (Chronic) Z86.14 Malnutrition of moderate degree (Chronic) E44.0 malnutrition, moderate, unspecified. Other chronic osteomyelitis, other site (Chronic) M86.68 clinical chronic osteomyelitis sacral bone Sacral decubitus ulcer, stage IV (Chronic) L89.154 Allergies codeine Allergy (Verified 11/07/16 13:03) Rash docetaxel [From Taxotere] Allergy (Verified 11/07/16 17:20) skin peeled from hands and feet-lips and throat blistered Penicillins [PCN] Allergy (Verified 11/07/16 13:03) Rash adhesive Adverse Reaction (Verified 11/07/16 13:03) Rash Home Medications: Ambulatory Orders Medication Instructions Recorded RX: Albuterol Aerosols [Ventolin 2.5 mg INHALATION Q4H PRN PRN 02/08/15 Aerosols] RX: Amiodarone HCl [Cordarone] 200 mg PO DAILY 02/08/15 RX: Aspirin [Aspirin, Baby] 81 mg PO DAILY@0800 02/08/15 RX: BusPIRone [Buspar] 5 mg PO BID 02/08/15 RX: Lactobacillus Acidophilus/Fos 1 each PO DAILY 02/08/15 [Acidophilus Probiotic Tablet] RX: Mirtazapine 7.5 mg PO QHS 02/08/15 RX: Multivitamins,Ther W-Minerals 1 tablet PO DAILY 02/08/15 [Multivitamin With Minerals] RX: Pantoprazole Sodium [Protonix] 40 mg PO DAILY 02/08/15 RX: Simvastatin [Zocor] 10 mg PO QHS 02/08/15 Bisacodyl [Laxative Suppository] 10 mg RC DAILY PRN 05/24/15 RX: Acetic Acid 30 ml IR BID 05/24/15 Benzonatate [Tessalon Perle] 100 mg PO 4X/DAY PRN PRN 09/25/16 Docusate Calcium [Surfak] 240 mg PO DAILY 09/25/16 Fluticasone 0.05% [Flonase Nasal 2 spray NASAL DAILY 09/25/16 [place]] Oxybutynin [Ditropan] 10 mg PO DAILY 09/25/16 Polyethylene Glycol 3350 [Miralax] 17 gm PO DAILY 09/25/16 Promethazine/Dextromethorphan 10 ml PO QHS 09/25/16 [Promethazine-Dm Syrup] RX: Fexofenadine HCl 90 mg PO DAILY 09/25/16 Acetaminophen [Tylenol Extra 500 mg PO Q8H PRN 11/07/16 Strength] Krish Antifungal Cream 2% 1 applicatio TOPICAL BID 11/07/16 Calcium Polycarbophil [Fiber-Caps] 2 cap PO BID 11/07/16 Doxycycline [Vibramycin] 100 mg PO BID 11/07/16 Furosemide [Lasix] 40 mg PO DAILY 11/07/16 Guaifenesin Dm [Robitussin Dm] 5 ml PO Q4H PRN 11/07/16 Ketoconazole [Nizoral] 1 applic TOPICAL QHS 11/07/16 Lactose-Reduced Food [Boost Breeze] 237 ml PO BID 11/07/16 Lisinopril [Zestril] 2.5 mg PO DAILY 11/07/16 Magnesium Hydroxide [Milk Of 30 ml PO DAILY PRN PRN 11/07/16 Magnesia] Metoprolol(XL)Succ [Toprol Xl 25 mg PO DAILY 11/07/16 (Beta Naomi)] Nutritional Supplement [Luis - 1 packet PO BIDCM 11/07/16 ORANGE FLAVOR] Nystatin Powder [Mycostatin Powder] 1 applic TOPICAL BID PRN 11/07/16 Ondansetron HCl [Zofran] 4 mg PO Q4H PRN 11/07/16 Potassium Chloride [Klor-Con] 25 meq PO DAILY 11/07/16 Protein Supplement [Prosource] 1 oz PO TID 11/07/16 RX: Melatonin 5 mg PO QHS PRN 11/07/16 Saliva Substitute Combo No.9 1 applicatio MM BID 11/07/16 [Biotene] Surgical History: arthroscopy, knee - for septic right knee., coronary bypass surgery - in 1994, mastectomy - left partial mastectomy with radiation and chemotherapy in 2008., - - Mitral valve replacement-bioprosthetic and tricuspid valve repair-2013. Endovascular revascularization right lower extremity. 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 Dyspnea Respiratory: Reports: Shortness of breath at rest, Shortness of breath upon exertion Gastrointestinal: Denies: Abdominal Pain, Nausea, Vomiting Genitourinary: Denies: Dysuria Patient Problems: Active and Suspected Problems LINDA (acute kidney injury) (Acute) Acute renal insufficiency (Acute) Anemia, macrocytic (Acute) Atrial fibrillation (Acute) Dehydration (Acute) Intractable nausea and vomiting (Acute) Stage 4 pressure ulcer (Acute) Systolic CHF, acute on chronic (Acute) Ventricular tachycardia (Acute) - Physical Exam General: Alert, Oriented x3 Neck: No JVD Lungs: Diminished, Short of Breath, - - distant Cardiovascular: Irregular Rate Abdomen: Bowel Sounds Present, Soft, Non Tender Vital Signs Temp Pulse Resp BP Pulse Ox 98.1 F 73 20 111/69 97 11/10/16 08:00 11/10/16 11:29 11/10/16 11:00 11/10/16 11:00 11/10/16 11:00 Oxygen Flow Rate 5 Oxygen Delivery Method Nasal Cannula Weight: 71 kg Body Mass Index (BMI) 25.0 Intake and Output for Last 24 Hours 11/08/16 11/09/16 11/10/16 23:59 23:59 23:59 Intake Total 5119 7733 489 Output Total 9320 3665 1150 Balance 622 615 -942 Microbiology Past 72 Hours 11/07/16 16:40 Urine Culture - Final Urine, Clean Catch Mixed Gram Positive Organisms 11/08/16 12:15 Stool Occult Blood (ARNOLDO) - Final Stool Occult Blood Positive Laboratory Tests Past 24 Hrs 11/09/16 11/09/16 11/09/16 06:36 19:20 19:50 WBC RBC Hgb Hct MCV MCH MCHC RDW RDW Differential Plt Count MPV Immature Gran % (Auto) Neut % (Auto) Lymph % (Auto) [place] % (Auto) Eos % (Auto) Baso % (Auto) Absolute Neuts (auto) Absolute Lymphs (auto) Total Counted Sodium Potassium Chloride Carbon Dioxide Anion Gap BUN Creatinine Estim Creat Clear Calc Est GFR (MDRD) Af Amer Est GFR (MDRD) Non-Af BUN/Creatinine Ratio Glucose Calcium Magnesium 2.6 H Total Bilirubin AST ALT Alkaline Phosphatase Troponin I 0.18 H 1.54 H* Total Protein Albumin Globulin Albumin/Globulin Ratio MRSA (PCR) POSITIVE H 11/10/16 11/10/16 11/10/16 00:30 03:40 06:30 WBC 7.8 RBC 3.52 L Hgb 10.7 L Hct 34.7 L MCV 98.6 MCH 30.4 MCHC 30.8 L RDW 16.4 H RDW Differential 59.2 H Plt Count 99 L MPV 11.6 Immature Gran % (Auto) 0.100 Neut % (Auto) 77.7 H Lymph % (Auto) 11.7 L [place] % (Auto) 9.6 Eos % (Auto) 0.8 Baso % (Auto) 0.1 Absolute Neuts (auto) 6.1 Absolute Lymphs (auto) 0.92 Total Counted Not Reportable Sodium Potassium Chloride Carbon Dioxide Anion Gap BUN Creatinine Estim Creat Clear Calc Est GFR (MDRD) Af Amer Est GFR (MDRD) Non-Af BUN/Creatinine Ratio Glucose Calcium Magnesium Total Bilirubin AST ALT Alkaline Phosphatase Troponin I 3.26 H* 3.31 H* Total Protein Albumin Globulin Albumin/Globulin Ratio MRSA (PCR) 11/10/16 06:30 WBC RBC Hgb Hct MCV MCH MCHC RDW RDW Differential Plt Count MPV Immature Gran % (Auto) Neut % (Auto) Lymph % (Auto) [place] % (Auto) Eos % (Auto) Baso % (Auto) Absolute Neuts (auto) Absolute Lymphs (auto) Total Counted Sodium 134 L Potassium 4.3 Chloride 98 Carbon Dioxide 29.0 Anion Gap 7 BUN 95 H Creatinine 1.60 H Estim Creat Clear Calc 31.94 Est GFR (MDRD) Af Amer 41 L Est GFR (MDRD) Non-Af 34 L BUN/Creatinine Ratio 59.4 H Glucose 334 H Calcium 8.6 Magnesium Total Bilirubin 0.80 AST 45 H ALT 23 Alkaline Phosphatase 107 Troponin I Total Protein 6.6 Albumin 2.5 L Globulin 4.1 H Albumin/Globulin Ratio 0.6 L MRSA (PCR) Assessment/Plan Active and Suspected Problems LINDA (acute kidney injury) (Acute) Acute renal insufficiency (Acute) Anemia, macrocytic (Acute) Atrial fibrillation (Acute) Dehydration (Acute) Intractable nausea and vomiting (Acute) Stage 4 pressure ulcer (Acute) Systolic CHF, acute on chronic (Acute) Ventricular tachycardia (Acute) end-stage cardiac disease-recurrent right pleural effusions, need for palliative right pleural catheter placement.. I plan to perform a right ultrasound guided tunneled pleural/Pleurx catheter placement. I have discussed the risks and benefits of this procedure with the patient. She understands and consents to the procedure. the patient has a chronic decubitus which is MRSA colonized. I feel the benefits of the catheter still outweighthe risks. I will plan for vancomycin as for perioperative antibiotic. The patient's platelet count today is 99,000. I feel this is appropriate and adequate for the procedure. I spoke with Dr. Florentin Gordon anesthesia. We understand she is very high risk but this is a palliative procedure.
--- NOTE | 2016-11-10 15:30 | NURSING ---
Pt to OR w/[employer] PIT OPERATOR & OR tech.
[2016-11-10 16:26] LABS: Bedside Glucose 139 mg/dL (70-110)
[2016-11-10] MEDS: Bupivacaine Mpf 0.5% 30 ML VIAL (16:46)
[2016-11-10 16:51] LABS: Bedside Glucose 157 mg/dL (70-110)
--- NOTE | 2016-11-10 18:28 | RAD_ITS ---
STUDY: X-RAY CHEST REASON FOR EXAM: Female, 66 years old. Central line placement. TECHNIQUE: Single AP portable view of the chest. COMPARISON: 11/09/2016 at 2:00 PM. FINDINGS: No central line is seen. No pneumothorax. No other changes. Bilateral abnormalities including atelectasis or infiltrate in the lung bases with pleural effusions, right worse than left. Moderate coronary artery status post median sternotomy. IMPRESSION: No central line is seen. No significant change. Electronically Signed: Issac Patel MD at 18:42 EDT , Service support , RAD/CXR for Line Placement
--- NOTE | 2016-11-10 19:33 | PCM.OPRPT ---
Problem List (1) Pleural effusion Status: Chronic Report of Operation Date of Procedure: 11/10/16 Pre-Operative Diagnosis: CHF, ? right pleural effusion Post-Operative Diagnosis: CHF, ? right pleural effusion - failed right tunneled pleural catheter placement Surgery/Procedure Performed:: attempted right ultrasound guided tunneled pleural/Pleurx catheter placement stone chimney mason: None Type of Anesthesia:: Local MAC Anesthesiologist: Tomer Santizo Specimen's removed: none Estimated Blood Loss (mL): 30cc Fluids Replaced: minimal Description of Procedure: The patient was brought to the operating suite. The the right chest was marked in the holding area and the patient concurred this was the planned operative site. Sign in was performed verifying patient, site, position, skip the patient had an MRSA decubitus wound so was given vancomycin and DVT prophylaxis with SCDs. ultrasound was used to evaluate the right lateral lower thoracic region. Less fluid than expected on chest x-ray was visualized with the ultrasound but was felt to be a reasonable pocket at the low costophrenic angle was marked. Following IV sedation, the right chest and upper abdomen were prepped and draped in the usual fashion. Timeout was performed verifying patient, site, position. Local anesthetic was injected and a 22-gauge needle was inserted returning some bloody serous fluid. This seemed to be a relatively small pocket. Ultrasound was then used intraoperatively to reimage the area and this seemed to be the best visualized access point. A Seldinger needle was used to access the right chest again returning bloody serous fluid. I guidewire was inserted through this Seldinger needle without difficulty. Local anesthetic was injected and incision made along the upper abdomen and the Pleurx catheter was tunneled from that site to the wire site. Multiple dilators and the dilator introducer were placed over the wire seemingly with not much difficulty. The patient complained of pain in her neck and shoulder weakness was being performed. The catheter was then fed through the introducer sheath after the wire and dilator were removed. The catheter went relatively easily. There was no return of serous fluid from the catheter. The insertion site in the lateral chest was closed with interrupted 4-0 Biosyn subcuticular sutures and Dermabond applied to the skin. The catheter was secured with a 3-0 silk suture. An intraoperative chest x-ray was obtained at this point. My review of the chest x-ray demonstrated no pneumothorax, with still appeared to be more pleural fluid on chest x-ray that I able to visualize with ultrasound, and the catheter to me appeared to be below the diaphragm with a scant amount of air below the diaphragm. At this point I interpreted this as the catheter was malpositioned. The catheter was removed. There was no bleeding from the tract. Bandages were applied to the 2 sites. The patient's oxygen saturation was stable throughout. She was transported to recovery in stable condition with plans to observe her closely in intensive care unit, obtain serial chest x-rays to assure she does not have a delayed pneumothorax and have a chest tube insertion kit readily accessible at the bedside. I discussed with the patient and her family the issues and the malposition and removal of the catheter and the plan for follow-up. The patient was brought to recovery room in stable condition.
[2016-11-10 20:01] LABS: Bedside Glucose 136 mg/dL (70-110)
--- NOTE | 2016-11-10 20:29 | RAD_ITS ---
STUDY: X-RAY CHEST REASON FOR EXAM: Female, 66 years old. Acute respiratory failure TECHNIQUE: Single AP portable view of the chest. COMPARISON: 11/10/2016 at 5:21 PM. FINDINGS: No gross change. Continued markedly abnormal chest x-ray showing complex bilateral pulmonary and pleural densities right worse than left. Probable bilateral pleural effusions and/or pleural thickening worse on the right. Cannot exclude loculated effusions. Cannot exclude infiltrates. Moderate cardiomegaly status post CABG. IMPRESSION: Prominent bilateral pulmonary and pleural abnormalities right worse than left, stable. Electronically Signed: Issac Patel MD at 20:39 EDT , Service support , RAD/Chest 1 View (Portable)
[2016-11-10] MEDS: Mirtazapine 15 MG Tablet 7.5 MG PO (21:41)
[2016-11-10] MEDS: Pantoprazole Sodium 40 MG Tablet PO (21:41)
[2016-11-10] MEDS: Atorvastatin Calcium 10 MG Tablet 5 MG PO (21:42)
[2016-11-11] VITALS (21 sets, daily range): BP systolic 93–111; BP diastolic 45–63; PULSE 55–85; RESP 14–22; TEMP 36.3–37.1; O2SAT 94–100
[2016-11-11 00:36] LABS: Bedside Glucose 109 mg/dL (70-110)
[2016-11-11] MEDS: Acetaminophen 325 MG Tablet 650 MG PO ×2 (03:50→10:10)
[2016-11-11 04:55] LABS: Anion Gap 6 (5-15); BUN 71 mg/dL (7-18); BUN/Creat Ratio 53.8 RATIO (10-20); Calcium,Total 8.2 mg/dL (8.5-10.1); Chloride 98 mmol/L (98-107); Creatinine, Serum 1.32 mg/dL (0.55-1.02); EST Glomerular Filtration Rate 43 mL/min (>60); Est Glom Filt Rate - Afr Amer 52 mL/min (>60); Estimated Creatinine Clearance 38.72 ml/min; Glucose 318 mg/dL (70-110); Magnesium 2.2 mg/dL (1.8-2.4); Potassium 3.8 mmol/L (3.5-5.1); Sodium Level 134 mmol/L (136-145)
[2016-11-11 04:56] LABS: Absolute Lymphocyte Count 0.73 X10^3/ul (0.83-4.51); Absolute Neutrophil Count 3.3 X10^3/uL (2.0-7.7); Basophil# 0.01 X10^3/uL; Basophil% 0.2 % (0-1); Eosinophil# 0.18 X10^3/uL; Eosinophils% 3.8 % (0-5); Hematocrit 32.5 % (37-47); Hemoglobin 9.3 g/dl (12.0-15.0); Lymphocyte # 0.73 X10^3/ul (4.0); Lymphocyte % 15.6 % (19-41); Mean Corp Hgb Conc 28.6 g/gl (32-36); Mean Corpuscular Hgb 30.4 pg (27.0-32.0); Mean Corpuscular Volume 106.2 fL (81-99); Mean Platelet Vol. 11.8 fl (6.2-12.0); Monocyte# 0.47 X10^3/uL; Neutrophil # 3.28 X10^3/uL (2.7-7.7); Neutrophil % 70.2 % (47-70); POSITIVE COUNT NO; POSITIVE DIFFERENTIAL NO; POSITIVE MORPHOLOGY NO; Platelet Count 81 K/mm3 (150-450); RBC Distribution Width CV 15.9 % (11.6-14.6); RBC Distribution Width SD 61.1 fl (35.1-43.9); Red Blood Count 3.06 M/mm3 (4.2-5.4); White Blood Count 4.7 K/mm3 (4.4-11.0)
--- NOTE | 2016-11-11 05:00 | RAD_ITS ---
STUDY: X-RAY CHEST REASON FOR EXAM: Female, 66 years old. Shortness of breath. TECHNIQUE: Single AP portable view of the chest. COMPARISON: 11/10/2016, 8:14 PM. FINDINGS: There again are bilateral pleural effusions larger on the right side. There are hazy opacities in the lower lungs worse on the left side. Superimposed infiltrates cannot be excluded. There are atelectatic changes in the left mid and lower lung zones. Sternal cerclage wires and vascular clips are present from a prior sternotomy and coronary artery bypass graft procedure (CABG). The heart is borderline in size. Normal mediastinum and sharifa. Normal visualized pulmonary arteries. There is atherosclerotic calcification of the aortic arch with tortuosity. The bony structures are unchanged. There is no demonstrated abnormality of the visualized soft tissue structures of the upper abdomen. RAD/Chest 1 View (Portable) IMPRESSION: Bilateral pleural effusions larger on the right side unchanged since prior examination. Atelectatic changes in the left lower lung. Superimposed infiltrate right lower lung cannot be entirely excluded. Overall no significant change since previous exam. Electronically Signed: John Villarreal MD at 8:49 EDT Tel , Service support ,
[2016-11-11 06:16] LABS: Bedside Glucose 92 mg/dL (70-110)
--- NOTE | 2016-11-11 07:31 | PCM.PROGNOTE ---
Patient Problems: Active and Suspected Problems LINDA (acute kidney injury) (Acute) Acute renal insufficiency (Acute) Anemia, macrocytic (Acute) Atrial fibrillation (Acute) Dehydration (Acute) Intractable nausea and vomiting (Acute) Stage 4 pressure ulcer (Acute) Systolic CHF, acute on chronic (Acute) Ventricular tachycardia (Acute) Subjective: Tunneled dialysis catheter was attempted by Dr. Lopez on 11/10 but the catheter was malpositioned and below the diaphragm and was removed. Oxygen saturation remained stable throughout the procedure. She was transferred to the intensive care unit for close monitoring. Subsequent chest x-rays have revealed no pneumothorax. she denies CP or SOB today. She is able to lie at 45 degrees in the bed which is a marked improvement as in the past 48 hours she has been sitting bolt upright. The cough she had yesterday has improved and she is not coughing while I am in the room. She is afebrile with stable vital signs. She is 99-100% saturated on the 5 L nasal cannula. She is not tachypneic, has no accessory muscle use, no conversational dyspnea. Fluid balance yesterday was +152. All lab was personally reviewed. White blood cell count today is 4.7. Hemoglobin is 9.3 and the platelets are 81,000. Sodium is stable at 134, potassium is 3.8, serum bicarb is 30, BUN is 71, down from 95 yesterday and the creatinine is 1.32, down from 1.6 yesterday. Hemoglobin A1c is 6.0 but fasting blood sugars remain high. The Accu-Cheks have all been less than 160. Mag is 2.2 today. - Physical Exam General: Alert, Oriented x3, Cooperative, No apparent distress, - - She is calm and looks the best I have seen her look this admission HEENT: PAULINE LIM Oral: Dry Mucosa Neck: No Nodes, Trachea Midline Lungs: Rales - in the Right base but clear anteriorly today and with much better air exchange on the right side Cardiovascular: Regular rate, Regular Rhythm, Normal S1, Normal S2, No rub noted, No Gallop Abdomen: Bowel Sounds Present, Soft, Non Tender, Non-Distended Extremities: No cyanosis, No edema, - - feel are a little cool to the touch but, much better than when she first presented to the ICU Skin: No rashes, Ulcer/ Wound - over the sacrum Neurological: Cranial nerves II-XII grossly intact, Neuro grossly intact Psych/Mental Status: Normal Affect, Appropriate Vital Signs Temp Pulse Resp BP Pulse Ox 98.6 F 68 18 96/49 99 11/11/16 06:00 11/11/16 06:00 11/11/16 06:00 11/11/16 06:03 11/11/16 06:00 Oxygen Flow Rate 5 Oxygen Delivery Method Nasal Cannula Weight: 161 lb 13.109 oz Body Mass Index (BMI) 25.2 Intake and Output for Last 24 Hours 11/09/16 11/10/16 11/11/16 23:59 23:59 23:59 Intake Total 2473 1932 366 Output Total 1675 1780 400 Balance 798 152 -34 Microbiology Past 72 Hours 11/07/16 16:40 Urine Culture - Final Urine, Clean Catch Mixed Gram Positive Organisms 11/08/16 12:15 Stool Occult Blood (ARNOLDO) - Final Stool Occult Blood Positive Laboratory Tests Past 24 Hrs 11/10/16 11/10/16 11/11/16 06:00 13:35 04:35 WBC 4.7 RBC 3.06 L Hgb 9.3 L Hct 32.5 L MCV 106.2 H MCH 30.4 MCHC 28.6 L RDW 15.9 H RDW Differential 61.1 H Plt Count 81 L MPV 11.8 Immature Gran % (Auto) 0.200 Neut % (Auto) 70.2 H Lymph % (Auto) 15.6 L [place] % (Auto) 10.0 Eos % (Auto) 3.8 Baso % (Auto) 0.2 Absolute Neuts (auto) 3.3 Absolute Lymphs (auto) 0.73 L Total Counted Not Reportable Sodium Potassium Chloride Carbon Dioxide Anion Gap BUN Creatinine Estim Creat Clear Calc Est GFR (MDRD) Af Amer Est GFR (MDRD) Non-Af BUN/Creatinine Ratio Glucose Hemoglobin A1c 6.0 Calcium Magnesium Troponin I 1.90 H* 11/11/16 04:35 WBC RBC Hgb Hct MCV MCH MCHC RDW RDW Differential Plt Count MPV Immature Gran % (Auto) Neut % (Auto) Lymph % (Auto) [place] % (Auto) Eos % (Auto) Baso % (Auto) Absolute Neuts (auto) Absolute Lymphs (auto) Total Counted Sodium 134 L Potassium 3.8 Chloride 98 Carbon Dioxide 30.0 Anion Gap 6 BUN 71 H Creatinine 1.32 H Estim Creat Clear Calc 38.72 Est GFR (MDRD) Af Amer 52 L Est GFR (MDRD) Non-Af 43 L BUN/Creatinine Ratio 53.8 H Glucose 318 H Hemoglobin A1c Calcium 8.2 L Magnesium 2.2 Troponin I POC Glucose 11/11/16 11/11/16 11/10/16 06:11 00:32 19:53 POC Glucose 92 109 136 H 11/10/16 11/10/16 16:19 13:29 POC Glucose 139 H 157 H Assessment/Plan Active and Suspected Problems LINDA (acute kidney injury) (Acute) Acute renal insufficiency (Acute) Anemia, macrocytic (Acute) Atrial fibrillation (Acute) Dehydration (Acute) Intractable nausea and vomiting (Acute) Stage 4 pressure ulcer (Acute) Systolic CHF, acute on chronic (Acute) Ventricular tachycardia (Acute) Impressions 1. NSTEMI 2. acute on chronic systolic CHF 3. PAF with RVR, NSVT 3. acute on chronic respiratory failure with hypoxemia 4. pancytopenia - why? 5. heme + stool 6. extensive CAD in mutiple vessels and grafts: Not a candidate for any surgical intervention PTCA 7. MRSA colonization vs infection sacral decubitus ulcer 8. Stage 4 non-healing sacral decubitus ulcer 9. Acute renal failure on chronic stage III renal failure 10. Hyperlipidemia 11. Malnutrition 12. GERD 13. Generalized anxiety 14. Severe ischemic cardiomyopathy with a 10-15% ejection fraction: Not a candidate for an AICD due to chronic sacral wound growing MRSA 15. Hyperglycemia Transfer to PCU Meet with hospice this admission Increase activity...up to chair today Supplement the K to keep it around 4 continue the mag supplementation recheck lab in the AM Continue with IS and PEP I was told by nursing that Dr. Foley called and said there may be a clot in heart? There is no mention in the ECHO report. Will need to discuss with cardiology. With the thrombocytopenia and the anemia with heme + stools she is really not a candidate for anticoagulation.
[2016-11-11 09:07] LABS: Bedside Glucose 100 mg/dL (70-110)
[2016-11-11] MEDS: Multivitamins,Ther W-Minerals Tablet 1 TABLET PO (09:35)
[2016-11-11] MEDS: Pantoprazole Sodium 40 MG Tablet PO ×2 (09:35→21:28)
[2016-11-11] MEDS: Loratadine 10 MG Tablet PO (09:36)
[2016-11-11] MEDS: Polyethylene Glycol 3350 17 GM PACKET PO (09:36)
[2016-11-11] MEDS: 0.9% NaCl Peripheral Flush Adult/Peds IV (09:37)
[2016-11-11] MEDS: Amiodarone 200 MG Tablet PO (10:10)
[2016-11-11] MEDS: Metoprolol Tartrate 25 MG Tablet 12.5 MG PO ×2 (10:10→21:26)
--- NOTE | 2016-11-11 10:29 | NURSING ---
Report given to Willa HAYWOOD prior to transfer from ICU.
--- NOTE | 2016-11-11 10:47 | PCM.PN.SRG ---
Patient Problems: Active and Suspected Problems LINDA (acute kidney injury) (Acute) Acute renal insufficiency (Acute) Anemia, macrocytic (Acute) Atrial fibrillation (Acute) Dehydration (Acute) Intractable nausea and vomiting (Acute) Stage 4 pressure ulcer (Acute) Systolic CHF, acute on chronic (Acute) Ventricular tachycardia (Acute) Subjective: pain at insertion site, no significant bleeding - Physical Exam General: Alert, Oriented x3 Lungs: Diminished, - - but overall improved Cardiovascular: Irregular Rate, - - thoracoabdominal insertion sites clean Vital Signs Temp Pulse Resp BP Pulse Ox 97.3 F 82 22 111/60 99 11/11/16 09:45 11/11/16 10:10 11/11/16 09:45 11/11/16 09:45 11/11/16 09:47 Oxygen Flow Rate 5 Oxygen Delivery Method Nasal Cannula Weight: 73.4 kg Body Mass Index (BMI) 25.2 Intake and Output for Last 24 Hours 11/09/16 11/10/16 11/11/16 23:59 23:59 23:59 Intake Total 2473 1932 676 Output Total 1675 1780 400 Balance 798 152 276 Microbiology Past 72 Hours 11/07/16 16:40 Urine Culture - Final Urine, Clean Catch Mixed Gram Positive Organisms 11/08/16 12:15 Stool Occult Blood (ARNOLDO) - Final Stool Occult Blood Positive Laboratory Tests Past 24 Hrs 11/10/16 11/10/16 11/11/16 06:00 13:35 04:35 WBC 4.7 RBC 3.06 L Hgb 9.3 L Hct 32.5 L MCV 106.2 H MCH 30.4 MCHC 28.6 L RDW 15.9 H RDW Differential 61.1 H Plt Count 81 L MPV 11.8 Immature Gran % (Auto) 0.200 Neut % (Auto) 70.2 H Lymph % (Auto) 15.6 L [place] % (Auto) 10.0 Eos % (Auto) 3.8 Baso % (Auto) 0.2 Absolute Neuts (auto) 3.3 Absolute Lymphs (auto) 0.73 L Total Counted Not Reportable Sodium Potassium Chloride Carbon Dioxide Anion Gap BUN Creatinine Estim Creat Clear Calc Est GFR (MDRD) Af Amer Est GFR (MDRD) Non-Af BUN/Creatinine Ratio Glucose Hemoglobin A1c 6.0 Calcium Magnesium Troponin I 1.90 H* 11/11/16 04:35 WBC RBC Hgb Hct MCV MCH MCHC RDW RDW Differential Plt Count MPV Immature Gran % (Auto) Neut % (Auto) Lymph % (Auto) [place] % (Auto) Eos % (Auto) Baso % (Auto) Absolute Neuts (auto) Absolute Lymphs (auto) Total Counted Sodium 134 L Potassium 3.8 Chloride 98 Carbon Dioxide 30.0 Anion Gap 6 BUN 71 H Creatinine 1.32 H Estim Creat Clear Calc 38.72 Est GFR (MDRD) Af Amer 52 L Est GFR (MDRD) Non-Af 43 L BUN/Creatinine Ratio 53.8 H Glucose 318 H Hemoglobin A1c Calcium 8.2 L Magnesium 2.2 Troponin I POC Glucose 11/11/16 11/11/16 11/11/16 09:00 06:11 00:32 POC Glucose 100 92 109 11/10/16 11/10/16 11/10/16 19:53 16:19 13:29 POC Glucose 136 H 139 H 157 H Assessment/Plan Active and Suspected Problems LINDA (acute kidney injury) (Acute) Acute renal insufficiency (Acute) Anemia, macrocytic (Acute) Atrial fibrillation (Acute) Dehydration (Acute) Intractable nausea and vomiting (Acute) Stage 4 pressure ulcer (Acute) Systolic CHF, acute on chronic (Acute) Ventricular tachycardia (Acute) end-stage cardiac disease-recurrent right pleural effusions, failed attempt at palliative right pleural catheter placement.. attempts to place the Pleurx catheter demonstrated decreased fluid at the reasonable access site than expected but still was felt to be adequate for placement. Attempted placement resulted in what was felt to be on x-ray and clinical impression intra-abdominal placement. Postprocedure chest x-rays were obtained serially which demonstrated no pneumothorax. The patient's actually doing well clinically. I spoke with Dr. Nayak today and given that overall the patient is doing better and after talking to the patient we will not reattempt to place this catheter at this time unless the patient's overall clinical status changes.
--- NOTE | 2016-11-11 11:25 | PCM.PN.CARD ---
Subjectve: The patient was seen and evaluated and appears to be doing quite well this morning with no cardiac complaints Objective: Vital Signs Temp Pulse Resp BP Pulse Ox 97.3 F 81 22 111/60 99 11/11/16 09:45 11/11/16 11:04 11/11/16 09:45 11/11/16 09:45 11/11/16 09:47 Oxygen Flow Rate 5 Oxygen Delivery Method Nasal Cannula Weight: 73.4 kg Body Mass Index (BMI) 25.2 Intake and Output for Last 24 Hours 11/09/16 11/10/16 11/11/16 23:59 23:59 23:59 Intake Total 2473 1932 676 Output Total 1675 1780 400 Balance 798 152 276 General: Awake, Alert, Oriented x 3, Ill Appearing HEENT: Atraumatic Neck: Supple Lungs: Clear to auscultation Cardiovascular: Irregular Rhythm Vascular: No Carotid Bruits Abdomen: Bowel Sounds Present Extremities: No edema Neurological: No Focal Motor or Sensory Deficit 11/10/16 06:00: Hemoglobin A1c 6.0 11/10/16 13:35: Troponin I 1.90 H* 11/11/16 04:35: WBC 4.7, RBC 3.06 L, Hgb 9.3 L, Hct 32.5 L, MCV 106.2 H, MCH 30.4, MCHC 28.6 L, RDW 15.9 H, RDW Differential 61.1 H, Plt Count 81 L, MPV 11.8, Immature Gran % (Auto) 0.200, Neut % (Auto) 70.2 H, Lymph % (Auto) 15.6 L, [place] % (Auto) 10.0, Eos % (Auto) 3.8, Baso % (Auto) 0.2, Absolute Neuts (auto) 3.3, Total Counted Not Reportable 11/11/16 04:35: Sodium 134 L, Potassium 3.8, Chloride 98, Carbon Dioxide 30.0, Anion Gap 6, BUN 71 H, Creatinine 1.32 H, Est GFR (MDRD) Af Amer 52 L, Est GFR (MDRD) Non-Af 43 L, BUN/Creatinine Ratio 53.8 H, Glucose 318 H, Calcium 8.2 L, Magnesium 2.2 Rhythm: EKG: ECHO: Stress Test: Cardiac Cath: PCI: CT Surgery: Holter monitor: EPS: PPM: CXR: Chest CT Scan: Assessment/Plan 1. Atrial fibrillation Patient is currently in sinus rhythm and the plan will be to continue the current medications to keep her in sinus rhythm. 2. Ventricular tachycardia The patient has demonstrated episodes of nonsustained ventricular tachycardia. It is unclear whether this is new for her versus chronic. At the present time the certainly could be secondary to her underlying ischemic mediated cardiac condition/cardiomyopathy. The patient is being monitored. She will continue on oral amiodarone. LifeVest use has been discontinued for the time being as she is in the hospital. 3. Non-ST segment elevation MA The patient's cardiac enzymes have been followed. Her troponin I levels were abnormal. This is compatible with an acute non-ST segment elevation MA. The patient does have underlying extensive coronary artery disease and graft vessel disease as previously noted. She has been extensively evaluated from a noninvasive and invasive standpoint at the [facility] [place] in September of this year. She has been delegated to conservative medical management as she was not deemed a candidate for any further revascularization therapy. 4. Acute on chronic systolic CHF The patient has an ejection fraction which is been estimated to be approximately 10-15% and at the present time appears to be fairly well diuresed. Echocardiogram was reviewed and it appears that there is a layered thrombus in the left atrium. It however appears that because of her anemia and had maroon stools she cannot be anticoagulated. she will remain on the beta-roberto, diuretics, and I would suggest the addition of low-dose lisinopril 2.5 mg a day. 5. CAD status post CABG She does have a history of underlying CAD and underwent CABG in 1994. According to her most recent cardiac catheterization report it appears that The JACOBSON to the LAD was patent and the SVG to the right PDA was occluded. It appears that she was delegated to conservative medical management based upon her recent extensive [facility] cardiology evaluation. She was not deemed a candidate for any additional attempts at revascularization therapy. 6. Mitral valve replacement She appears to undergone mitral valve replacement with a bioprosthetic mitral valve in 2013. This was assessed by echocardiogram. It was reported as stable. 7. Tricuspid valve repair Frost to her [facility] medical record she also underwent tricuspid valve repair in 2013. According to her echocardiogram performed at [facility] she has mild tricuspid valve regurgitation. 8. Pleural effusion She does have a chronic right-sided pleural effusion. It appears she is gone through multiple thoracentesis procedures. She is pending placement of a [facility] improvement in quality of life issues. 9. Sacral decubitus ulcer She does have a chronic sacral decubitus ulcer. According to her medical records this is led to her being considered not a candidate for an implantable ICD placement. Some later date however if this decubitus ulcer heals completely she may be a candidate for an implantable ICD Unfortunately, based upon the patient's complex cardiovascular medical history, her overall prognosis is poor. This has been discussed with her by both internal medicine and cardiology. At the present time she is requested to be a DNR. She is also considering hospice therapy. This note was generated with [employer] dictation software. It may contain incorrect words, spelling, and punctuation that were not noted in checking the note before signing. Will be transferred to the progressive care unit at this particular time and will be observed.
--- NOTE | 2016-11-11 11:30 | PN.CARD_ITS ---
Subjectve: The patient was seen and evaluated and appears to be doing quite well this morning with no cardiac complaints Objective: Vital Signs Temp Pulse Resp BP Pulse Ox 97.3 F 81 22 111/60 99 11/11/16 09:45 11/11/16 11:04 11/11/16 09:45 11/11/16 09:45 11/11/16 09:47 Oxygen Flow Rate 5 Oxygen Delivery Method Nasal Cannula Weight: 73.4 kg Body Mass Index (BMI) 25.2 Intake and Output for Last 24 Hours 11/09/16 11/10/16 11/11/16 23:59 23:59 23:59 Intake Total 2473 1932 676 Output Total 1675 1780 400 Balance 798 152 276 General: Awake, Alert, Oriented x 3, Ill Appearing HEENT: Atraumatic Neck: Supple Lungs: Clear to auscultation Cardiovascular: Irregular Rhythm Vascular: No Carotid Bruits Abdomen: Bowel Sounds Present Extremities: No edema Neurological: No Focal Motor or Sensory Deficit 11/10/16 06:00: Hemoglobin A1c 6.0 11/10/16 13:35: Troponin I 1.90 H* 11/11/16 04:35: WBC 4.7, RBC 3.06 L, Hgb 9.3 L, Hct 32.5 L, MCV 106.2 H, MCH 30.4, MCHC 28.6 L, RDW 15.9 H, RDW Differential 61.1 H, Plt Count 81 L, MPV 11.8 , Immature Gran % (Auto) 0.200, Neut % (Auto) 70.2 H, Lymph % (Auto) 15.6 L, Williams % (Auto) 10.0, Eos % (Auto) 3.8, Baso % (Auto) 0.2, Absolute Neuts (auto) 3.3, Total Counted Not Reportable 11/11/16 04:35: Sodium 134 L, Potassium 3.8, Chloride 98, Carbon Dioxide 30.0, Anion Gap 6, BUN 71 H, Creatinine 1.32 H, Est GFR (MDRD) Af Amer 52 L, Est GFR ( MDRD) Non-Af 43 L, BUN/Creatinine Ratio 53.8 H, Glucose 318 H, Calcium 8.2 L, Magnesium 2.2 Rhythm: EKG: ECHO: Stress Test: Cardiac Cath: PCI: CT Surgery: Holter monitor: EPS: PPM: CXR: Chest CT Scan: Assessment/Plan 1. Atrial fibrillation Patient is currently in sinus rhythm and the plan will be to continue the current medications to keep her in sinus rhythm. 2. Ventricular tachycardia The patient has demonstrated episodes of nonsustained ventricular tachycardia. It is unclear whether this is new for her versus chronic. At the present time the certainly could be secondary to her underlying ischemic mediated cardiac condition/cardiomyopathy. The patient is being monitored. She will continue on oral amiodarone. LifeVest use has been discontinued for the time being as she is in the hospital. 3. Non-ST segment elevation CA The patient's cardiac enzymes have been followed. Her troponin I levels were abnormal. This is compatible with an acute non-ST segment elevation CA. The patient does have underlying extensive coronary artery disease and graft vessel disease as previously noted. She has been extensively evaluated from a noninvasive and invasive standpoint at the [facility] [place] in September of this year. She has been delegated to conservative medical management as she was not deemed a candidate for any further revascularization therapy. 4. Acute on chronic systolic CHF The patient has an ejection fraction which is been estimated to be approximately 10-15% and at the present time appears to be fairly well diuresed. Echocardiogram was reviewed and it appears that there is a layered thrombus in the left atrium. It however appears that because of her anemia and had maroon stools she cannot be anticoagulated. she will remain on the beta-roberto, diuretics, and I would suggest the addition of low-dose lisinopril 2.5 mg a day. 5. CAD status post CABG She does have a history of underlying CAD and underwent CABG in 1994. According to her most recent cardiac catheterization report it appears that The JACOBSON to the LAD was patent and the SVG to the right PDA was occluded. It appears that she was delegated to conservative medical management based upon her recent extensive [facility] cardiology evaluation. She was not deemed a candidate for any additional attempts at revascularization therapy. 6. Mitral valve replacement She appears to undergone mitral valve replacement with a bioprosthetic mitral valve in 2013. This was assessed by echocardiogram. It was reported as stable. 7. Tricuspid valve repair [place] to her [facility] medical record she also underwent tricuspid valve repair in 2013. According to her echocardiogram performed at [facility] she has mild tricuspid valve regurgitation. 8. Pleural effusion She does have a chronic right-sided pleural effusion. It appears she is gone through multiple thoracentesis procedures. She is pending placement [facility] a [facility] in quality of life issues. 9. Sacral decubitus ulcer She does have a chronic sacral decubitus ulcer. According to her medical records this is led to her being considered not a candidate for an implantable ICD placement. Some later date however if this decubitus ulcer heals completely she may be a candidate for an implantable ICD Unfortunately, based upon the patient's complex cardiovascular medical history, her overall prognosis is poor. This has been discussed with her by both internal medicine and cardiology. At the present time she is requested to be a DNR. She is also considering hospice therapy. This note was generated with [employer] dictation software. It may contain incorrect words, spelling, and punctuation that were not noted in checking the note before signing. Will be transferred to the progressive care unit at this particular time and will be observed.
--- NOTE | 2016-11-11 12:46 | NURSING ---
This RN assuming care of pt at this time
[2016-11-11] MEDS: Mirtazapine 15 MG Tablet 7.5 MG PO (21:27)
[2016-11-11] MEDS: Atorvastatin Calcium 10 MG Tablet 5 MG PO (21:30)
[2016-11-12] VITALS (14 sets, daily range): BP systolic 91–105; BP diastolic 45–79; PULSE 66–91; RESP 14–18; TEMP 36.5–37.1; O2SAT 93–98
[2016-11-12 06:28] LABS: Hematocrit 33.2 % (37-47); Hemoglobin 10.3 g/dl (12.0-15.0); Mean Corpuscular Hgb 30.4 pg (27.0-32.0); Mean Corpuscular Volume 97.9 fL (81-99); Mean Platelet Vol. 11.7 fl (6.2-12.0); Platelet Count 101 K/mm3 (150-450); RBC Distribution Width CV 15.6 % (11.6-14.6); RBC Distribution Width SD 55.7 fl (35.1-43.9); Red Blood Count 3.39 M/mm3 (4.2-5.4); White Blood Count 8.4 K/mm3 (4.4-11.0)
[2016-11-12 06:29] LABS: Scan Indicated on CBC? Y/N NO
[2016-11-12 06:32] LABS: Anion Gap 4 (5-15); BUN 72 mg/dL (7-18); BUN/Creat Ratio 62.1 RATIO (10-20); Calcium,Total 8.9 mg/dL (8.5-10.1); Chloride 106 mmol/L (98-107); Creatinine, Serum 1.16 mg/dL (0.55-1.02); EST Glomerular Filtration Rate 50 mL/min (>60); Est Glom Filt Rate - Afr Amer 60 mL/min (>60); Estimated Creatinine Clearance 44.06 ml/min; Glucose 129 mg/dL (70-110); Magnesium 2.2 mg/dL (1.8-2.4); Potassium 4.8 mmol/L (3.5-5.1); Sodium Level 139 mmol/L (136-145)
[2016-11-12] MEDS: Multivitamins,Ther W-Minerals Tablet 1 TABLET PO (08:08)
--- NOTE | 2016-11-12 09:03 | PCM.PN.CARD ---
Subjectve: Patient seen and evaluated and appears to be doing quite well this morning with no complaints other than mild shortness of breath early on Objective: Vital Signs Temp Pulse Resp BP Pulse Ox 98.7 F 76 18 105/53 93 11/12/16 05:20 11/12/16 07:00 11/12/16 05:20 11/12/16 05:20 11/12/16 07:03 Oxygen Flow Rate 2 Oxygen Delivery Method Nasal Cannula Weight: 59.9 kg Body Mass Index (BMI) 25.2 Intake and Output for Last 24 Hours 11/10/16 11/11/16 11/12/16 23:59 23:59 23:59 Intake Total 1932 1316 120 Output Total 1780 1225 275 Balance 152 91 -155 General: Awake, Alert, Ill Appearing HEENT: Atraumatic Neck: Supple Lungs: Diminished [place] Bases Cardiovascular: Regular Rhythm Vascular: No Carotid Bruits Abdomen: Bowel Sounds Present Extremities: No edema Neurological: No Focal Motor or Sensory Deficit 11/12/16 05:16: WBC 8.4, RBC 3.39 L, Hgb 10.3 L, Hct 33.2 L, MCV 97.9, MCH 30.4, MCHC 31.0 L, RDW 15.6 H, RDW Differential 55.7 H, Plt Count 101 L, MPV 11.7 11/12/16 05:16: Sodium 139, Potassium 4.8, Chloride 106, Carbon Dioxide 29.0, Anion Gap 4 L, BUN 72 H, Creatinine 1.16 H, Est GFR (MDRD) Af Amer 60, Est GFR (MDRD) Non-Af 50 L, BUN/Creatinine Ratio 62.1 H, Glucose 129 H, Calcium 8.9, Magnesium 2.2 Rhythm: Sinus rhythm with no acute changes Assessment/Plan 1. Atrial fibrillation Patient is currently in sinus rhythm and the plan will be to continue the current medications to keep her in sinus rhythm. 2. Ventricular tachycardia The patient had previously demonstrated episodes of nonsustained ventricular tachycardia. At the present time the certainly could be secondary to her underlying ischemic mediated cardiac condition/cardiomyopathy. The patient is being monitored. She will continue on oral amiodarone. LifeVest use has been discontinued for the time being as she is in the hospital. 3. Non-ST segment elevation GA The patient's cardiac enzymes have been followed. Her troponin I levels were abnormal. This is compatible with an acute non-ST segment elevation GA. The patient does have underlying extensive coronary artery disease and graft vessel disease as previously noted. She has been extensively evaluated from a noninvasive and invasive standpoint at the [facility] [place] in September of this year. She has been delegated to conservative medical management as she was not deemed a candidate for any further revascularization therapy. 4. Acute on chronic systolic CHF The patient has an ejection fraction which is been estimated to be approximately 10-15% and at the present time appears to be fairly well diuresed. Echocardiogram was reviewed and it appears that there is a layered thrombus in the left atrium. It however appears that because of her anemia and had maroon stools she cannot be anticoagulated. she will remain on the beta-roberto, diuretics, and I would suggest the addition of low-dose lisinopril 2.5 mg a day. 5. CAD status post CABG She does have a history of underlying CAD and underwent CABG in 1994. According to her most recent cardiac catheterization report it appears that The JACOBSON to the LAD was patent and the SVG to the right PDA was occluded. It appears that she was delegated to conservative medical management based upon her recent extensive [facility] cardiology evaluation. She was not deemed a candidate for any additional attempts at revascularization therapy. 6. Mitral valve replacement She appears to undergone mitral valve replacement with a bioprosthetic mitral valve in 2013. This was assessed by echocardiogram. It was reported as stable. 7. Tricuspid valve repair [place] to her [facility] medical record she also underwent tricuspid valve repair in 2013. According to her echocardiogram performed at [facility] she has mild tricuspid valve regurgitation. 8. Pleural effusion She does have a chronic right-sided pleural effusion. It appears she is gone through multiple thoracentesis procedures. Procedure yesterday was apparently unsuccessful. We will continue with diuresis 9. Sacral decubitus ulcer She does have a chronic sacral decubitus ulcer. According to her medical records this is led to her being considered not a candidate for an implantable ICD placement. Some later date however if this decubitus ulcer heals completely she may be a candidate for an implantable ICD Unfortunately, based upon the patient's complex cardiovascular medical history, her overall prognosis is poor. This has been discussed with her by both internal medicine and cardiology. At the present time she is requested to be a DNR. She is also considering hospice therapy. This note was generated with [employer] software. It may contain incorrect words, spelling, and punctuation that were not noted in checking the note before signing. Will be transferred to the progressive care unit at this particular time and will be observed.
[2016-11-12] MEDS: Amiodarone 200 MG Tablet PO (09:39)
[2016-11-12] MEDS: Loratadine 10 MG Tablet PO (09:39)
[2016-11-12] MEDS: Metoprolol Tartrate 25 MG Tablet 12.5 MG PO ×2 (09:40→21:06)
[2016-11-12] MEDS: Pantoprazole Sodium 40 MG Tablet PO ×2 (09:41→21:06)
[2016-11-12] MEDS: Lisinopril 2.5 MG Tablet PO (09:41)
--- NOTE | 2016-11-12 17:08 | PN_ITS ---
Patient Problems: Active and Suspected Problems LINDA (acute kidney injury) (Acute) Acute renal insufficiency (Acute) Anemia, macrocytic (Acute) Atrial fibrillation (Acute) Dehydration (Acute) Intractable nausea and vomiting (Acute) Stage 4 pressure ulcer (Acute) Systolic CHF, acute on chronic (Acute) Ventricular tachycardia (Acute) Subjective: Patient is a 66-year-old female with history of coronary artery disease, severe ischemic cardiomyopathy with a 10-15% ejection fraction, chronic CHF, a nonhealing stage IV decubitus ulcer over the sacrum and colonized with MRSA, chronic renal failure stage III, hyperlipidemia, malnutrition, GERD, generalized anxiety, pancytopenia, a permanent life vest, sacral osteomyelitis, hx of breast CA Who presented to the ER c/o N/V. BUN and CREAT in the ER were 203 and 2.08 respectively. She had been on aggressive doses of Lasix as an outpatient in an attempt to diurese her. She has had thoracentesis ?4 times in the past month for large right pleural effusion. Hemoglobin was 7.9 at admission and she was quite dehydrated. She was transfused with 2 units of packed red blood cells when hemoglobin dropped to 7.4 and stools were heme positive. On 11/09 she suddenly became more SOB and went into acute respiratory distress. EKG showed new T wave changes in the inferior leads and telemetry showed NSVT. she was transferred to the ICU and then had AF with RVR. she was started on amidoarone and gently diuresed. she was seen in consultation by Dr. Krishnan. Troponin and peaked at 3.31 and then began to decline. On 11/10 she was taken to surgery by Dr. Lopez for Pleurx catheter so she would not have to have any further thoracentesis. It is a palliative measure. The attempt failed. There was not a significant amount of fluid in the chest at that time and the catheter was actually in the upper abdomen. She had a cath at [facility] in September and she has severe disease in ALL vessels except the JACOBSON. ECHO this admission shows a layered thrombus in the left atrium however, she has been anemia and thrombocytopenic with heme + stools and she is not a candidate for anticoagulation. She is not a candidate for any coronary intervention and she can not have a AICD due to chronic MRSA colonization of sacral wound. No adverse events overnight. She remains in normal sinus rhythm with no significant ventricular ectopy. She will remain on amiodarone. She had a lot of company today and she is very tired. She is more dyspneic than she was yesterday and I think it is because of being fatigued. Fluid balance yesterday was 91. Lab today shows a normal white blood cell count at 4.7 with hemoglobin of 9.3 and platelets of 81,000. The potassium is 3.8 and the BUN is 71 with a creatinine of 1.32 which is down from 2.1 at admission. The fasting blood sugars have been in the 300s but Accu-Cheks are all less than 150. The fasting blood sugar by Accu-Chek today is 92 and the lab draw is 318. Lab is drawing blood from an IV site with dextrose. HGBA1C is 6.0. - Physical Exam General: Alert, Cooperative, - - appears ill and she is quite fatigued today after having company for several hours. HEENT: Atraumatic, PERRLA Lungs: No wheeze, No rales, Diminished Cardiovascular: Regular rate, Regular Rhythm, Normal S1, Normal S2, No rub noted , No Gallop Abdomen: Bowel Sounds Present, Soft, Non Tender, Non-Distended Extremities: No clubbing, No cyanosis, No edema, - - the feet are very cool to touch today Skin: No rashes, No breakdown Musculoskeletal: Muscle Wasting Neurological: Cranial nerves II-XII grossly intact, Neuro grossly intact Psych/Mental Status: Normal Affect, Appropriate Vital Signs Temp Pulse Resp BP Pulse Ox 98.3 F 77 16 91/45 96 11/12/16 15:12 11/12/16 15:12 11/12/16 15:12 11/12/16 15:12 11/12/16 15:12 Oxygen Flow Rate 2 Oxygen Delivery Method Nasal Cannula Weight: 132 lb 0.91 oz Body Mass Index (BMI) 25.2 Intake and Output for Last 24 Hours 11/10/16 11/11/16 11/12/16 23:59 23:59 23:59 Intake Total 1932 1316 120 Output Total 1780 1225 475 Balance 152 91 -355 Microbiology Past 72 Hours 11/11/16 09:30 Gram Stain - Final Sputum, Expectorated/Coughed Respiratory Culture - Preliminary Appears to be normal respiratory tulio. Further studies to follow. Laboratory Tests Past 24 Hrs 11/12/16 11/12/16 05:16 05:16 WBC 8.4 RBC 3.39 L Hgb 10.3 L Hct 33.2 L MCV 97.9 MCH 30.4 MCHC 31.0 L RDW 15.6 H RDW Differential 55.7 H Plt Count 101 L MPV 11.7 Sodium 139 Potassium 4.8 Chloride 106 Carbon Dioxide 29.0 Anion Gap 4 L BUN 72 H Creatinine 1.16 H Estim Creat Clear Calc 44.06 Est GFR (MDRD) Af Amer 60 Est GFR (MDRD) Non-Af 50 L BUN/Creatinine Ratio 62.1 H Glucose 129 H Calcium 8.9 Magnesium 2.2 Assessment/Plan Active and Suspected Problems LINDA (acute kidney injury) (Acute) Acute renal insufficiency (Acute) Anemia, macrocytic (Acute) Atrial fibrillation (Acute) Dehydration (Acute) Intractable nausea and vomiting (Acute) Stage 4 pressure ulcer (Acute) Systolic CHF, acute on chronic (Acute) Ventricular tachycardia (Acute) Impressions 1. NSTEMI 2. acute on chronic systolic CHF: she is down to a 2 Liter NC today from 5-6 L 3. PAF with RVR, NSVT 3. acute on chronic respiratory failure with hypoxemia 4. pancytopenia - why? 5. heme + stool 6. extensive CAD in multiple vessels and grafts: Not a candidate for any surgical intervention or PTCA 7. MRSA colonization vs infection sacral decubitus ulcer - favor colonization. Off Doxycycline now and she is afebrile and has a normal WBC count 8. Stage 4 non-healing sacral decubitus ulcer 9. Acute renal failure on chronic stage III renal failure 10. Hyperlipidemia 11. Malnutrition 12. GERD 13. Generalized anxiety 14. Severe ischemic cardiomyopathy with a 10-15% ejection fraction: Not a candidate for an AICD due to chronic sacral wound growing MRSA 15. Hyperglycemia 16. Left atrial thrombus she wants to meet with hospice Life vest is off while in the hospital....it did not fire with the AF/RVR or the VT. Supplement the K to keep at 4. Possible DC back to the NH tomorrow...if she has not been seen by hospice before then she can meet with them at the [place] Lisinopril added to the drug regimen by Dr. Foley Increase the Remeron to 15 mg...she is tolerating and still c/o difficulty sleeping Lab in the AM Lasix only if the I>O....May be able to start spironolactone, will discuss with Dr. Foley and see what the K is in the AM since the SANDRA has been started
[2016-11-12] MEDS: Mirtazapine 15 MG Tablet PO (21:06)
[2016-11-12] MEDS: Atorvastatin Calcium 10 MG Tablet 5 MG PO (21:06)
[2016-11-12] MEDS: Menthol/Lanolin/Calamine/Znox 113 GM Tube 1 APPLIC TOPICAL (21:14)
[2016-11-13] VITALS (8 sets, daily range): BP systolic 100–108; BP diastolic 48–55; PULSE 70–83; RESP 18–20; TEMP 36.1–37.1; O2SAT 96–99
[2016-11-13 06:23] LABS: Hematocrit 33.5 % (37-47); Hemoglobin 10.3 g/dl (12.0-15.0); Mean Corp Hgb Conc 30.7 g/gl (32-36); Mean Corpuscular Hgb 30.7 pg (27.0-32.0); Mean Corpuscular Volume 99.7 fL (81-99); Mean Platelet Vol. 11.9 fl (6.2-12.0); Platelet Count 89 K/mm3 (150-450); RBC Distribution Width CV 15.5 % (11.6-14.6); RBC Distribution Width SD 54.1 fl (35.1-43.9); Red Blood Count 3.36 M/mm3 (4.2-5.4); White Blood Count 7.2 K/mm3 (4.4-11.0)
[2016-11-13 06:45] LABS: Anion Gap 6 (5-15); BUN 69 mg/dL (7-18); BUN/Creat Ratio 60.5 RATIO (10-20); Calcium,Total 9.2 mg/dL (8.5-10.1); Chloride 106 mmol/L (98-107); Creatinine, Serum 1.14 mg/dL (0.55-1.02); EST Glomerular Filtration Rate 51 mL/min (>60); Est Glom Filt Rate - Afr Amer 61 mL/min (>60); Estimated Creatinine Clearance 44.83 ml/min; Glucose 109 mg/dL (70-110); Magnesium 2.3 mg/dL (1.8-2.4); Potassium 4.7 mmol/L (3.5-5.1); Sodium Level 140 mmol/L (136-145)
[2016-11-13 07:14] LABS: Scan Indicated on CBC? Y/N NO
--- NOTE | 2016-11-13 08:49 | PCM.PN.CARD ---
Subjectve: The patient looks better and states she feels better overall compared to last week. She denies any acute chest discomfort or acute shortness of breath/dyspnea. He has not noted any obvious palpitations. Objective: Vital Signs Temp Pulse Resp BP Pulse Ox 98.3 F 82 18 106/54 99 11/13/16 03:05 11/13/16 03:05 11/13/16 03:05 11/13/16 03:05 11/13/16 07:40 Oxygen Flow Rate 3 Oxygen Delivery Method Nasal Cannula Weight: 72.9 kg Body Mass Index (BMI) 25.2 Intake and Output for Last 24 Hours 11/11/16 11/12/16 11/13/16 23:59 23:59 23:59 Intake Total 1316 480 120 Output Total 1225 925 350 Balance 91 -445 -230 General: Awake, Alert, Oriented x 3, Cooperative, No Acute Distress Neck: No JVD Lungs: Clear to auscultation Cardiovascular: Regular Rhythm, Normal S1, Normal S2 Vascular: No Carotid Bruits Abdomen: Bowel Sounds Present, Soft, Non Tender Extremities: No edema 11/13/16 05:10: WBC 7.2, RBC 3.36 L, Hgb 10.3 L, Hct 33.5 L, MCV 99.7 H, MCH 30.7, MCHC 30.7 L, RDW 15.5 H, RDW Differential 54.1 H, Plt Count 89 L, MPV 11.9 11/13/16 05:10: Sodium 140, Potassium 4.7, Chloride 106, Carbon Dioxide 28.0, Anion Gap 6, BUN 69 H, Creatinine 1.14 H, Est GFR (MDRD) Af Amer 61, Est GFR (MDRD) Non-Af 51 L, BUN/Creatinine Ratio 60.5 H, Glucose 109, Calcium 9.2, Magnesium 2.3 Rhythm: Sinus rhythm Assessment/Plan 1. Atrial fibrillation The patient has demonstrated findings compatible with atrial fibrillation. The etiology may be multifactorial secondary to a combination of age, underlying cardiovascular disease, pulmonary disease, etc. The patient has been treated medically. The patient has been transitioned to oral beta-blockers and oral amiodarone therapy. This will be continued to assist with rate and rhythm control. Again her main concerns about her not being an ideal candidate for antiplatelet and anticoagulant therapy secondary to multiple issues including her anemia, thrombocytopenia, and any obvious bleeding related issues 2. Ventricular tachycardia The patient has demonstrated episodes of nonsustained ventricular tachycardia. It is unclear whether this is new for her versus chronic. At the present time the certainly could be secondary to her underlying ischemic mediated cardiac condition/cardiomyopathy. At the present time she will continue antiarrhythmic therapy with amiodarone. 3. Non-ST segment elevation IA The patient's cardiac enzymes have been followed. Her troponin I levels were abnormal. This is compatible with an acute non-ST segment elevation IA. The patient does have underlying extensive coronary artery disease and graft vessel disease as previously noted. She has been extensively evaluated from a noninvasive and invasive standpoint at the [facility] Main [place] in September of this year. She has been delegated to conservative medical management as she was not deemed a candidate for any further revascularization therapy. Thus at the present time she will continue to be monitored. Her cardiac enzymes will be followed. Her ECG will be followed. She will continue medical management. Ideally this would include antiplatelet therapy, anticoagulant therapy, beta-blockers, etc. However these agents will have to be adjusted around her clinical course, vital signs, and other invasive procedures from a pulmonary standpoint, etc. 4. Acute on chronic systolic CHF The patient has a history of chronic systolic CHF. She now appears to have developed acute symptoms which may be secondary to a combination of factors including her recent IV fluids as well as her alteration in her underlying cardiac rate and rhythm. This is all superimposed upon her diminished LV systolic function. At the present time she is being monitored. She does appear to be improved overall. She will continue her medical management. 5. CAD status post CABG He does have a history of underlying CAD and underwent CABG in 1994. According to her most recent cardiac catheterization report it appears there were 2 g commented upon. The JACOBSON to the LAD was patent and the SVG to the right PDA was occluded. It appears that she was delegated to conservative medical management based upon her recent extensive [facility] cardiology evaluation. She was not deemed a candidate for any additional attempts at revascularization therapy. 6. Mitral valve replacement She appears to undergone mitral valve replacement with a bioprosthetic mitral valve in 2013. This was assessed by echocardiogram. It was reported as stable. 7. Tricuspid valve repair [place] to her [facility] medical record she also underwent tricuspid valve repair in 2013. According to her echocardiogram performed at [facility] she has mild tricuspid valve regurgitation. 8. Pleural effusion She does have a chronic right-sided pleural effusion. Unfortunately it does not appear that her vehicle based catheter procedure was successful. She may be delegated to future repeat thoracentesis procedures per 9. Pancytopenia She does have pancytopenia. She was markedly anemic on admission. She has received PRBCs. Her hemoglobin has increased. Hopefully this will help her oxygen carrying capacity. The same time she has thrombocytopenia. Thus, between concerns of her anemia and thrombocytopenia does make it more challenging to proceed with systemic anticoagulant therapy. 10. Acute renal insufficiency She did present with evidence of acute renal insufficiency. It was thought this was related to decreased oral intake and dehydration. Her renal function should be followed over time. 11. Dehydration Overall she does appear to be improved with respect to her volume status. 12. Sacral decubitus ulcer She does have a chronic sacral decubitus ulcer. According to her medical records this is led to her being considered not a candidate for an implantable ICD placement. Overall, she is going to continue conservative medical management. There are no immediate cardiovascular procedure scheduled for her. This note was generated with [employer] dictation software. It may contain incorrect words, spelling, and punctuation that were not noted in checking the note before signing.
--- NOTE | 2016-11-13 08:54 | PN.CARD_ITS ---
Subjectve: The patient looks better and states she feels better overall compared to last week. She denies any acute chest discomfort or acute shortness of breath/ dyspnea. He has not noted any obvious palpitations. Objective: Vital Signs Temp Pulse Resp BP Pulse Ox 98.3 F 82 18 106/54 99 11/13/16 03:05 11/13/16 03:05 11/13/16 03:05 11/13/16 03:05 11/13/16 07:40 Oxygen Flow Rate 3 Oxygen Delivery Method Nasal Cannula Weight: 72.9 kg Body Mass Index (BMI) 25.2 Intake and Output for Last 24 Hours 11/11/16 11/12/16 11/13/16 23:59 23:59 23:59 Intake Total 1316 480 120 Output Total 1225 925 350 Balance 91 -445 -230 General: Awake, Alert, Oriented x 3, Cooperative, No Acute Distress Neck: No JVD Lungs: Clear to auscultation Cardiovascular: Regular Rhythm, Normal S1, Normal S2 Vascular: No Carotid Bruits Abdomen: Bowel Sounds Present, Soft, Non Tender Extremities: No edema 11/13/16 05:10: WBC 7.2, RBC 3.36 L, Hgb 10.3 L, Hct 33.5 L, MCV 99.7 H, MCH 30.7, MCHC 30.7 L, RDW 15.5 H, RDW Differential 54.1 H, Plt Count 89 L, MPV 11.9 11/13/16 05:10: Sodium 140, Potassium 4.7, Chloride 106, Carbon Dioxide 28.0, Anion Gap 6, BUN 69 H, Creatinine 1.14 H, Est GFR (MDRD) Af Amer 61, Est GFR ( MDRD) Non-Af 51 L, BUN/Creatinine Ratio 60.5 H, Glucose 109, Calcium 9.2, Magnesium 2.3 Rhythm: Sinus rhythm Assessment/Plan 1. Atrial fibrillation The patient has demonstrated findings compatible with atrial fibrillation. The etiology may be multifactorial secondary to a combination of age, underlying cardiovascular disease, pulmonary disease, etc. The patient has been treated medically. The patient has been transitioned to oral beta-blockers and oral amiodarone therapy. This will be continued to assist with rate and rhythm control. Again her main concerns about her not being an ideal candidate for antiplatelet and anticoagulant therapy secondary to multiple issues including her anemia, thrombocytopenia, and any obvious bleeding related issues 2. Ventricular tachycardia The patient has demonstrated episodes of nonsustained ventricular tachycardia. It is unclear whether this is new for her versus chronic. At the present time the certainly could be secondary to her underlying ischemic mediated cardiac condition/cardiomyopathy. At the present time she will continue antiarrhythmic therapy with amiodarone. 3. Non-ST segment elevation HI The patient's cardiac enzymes have been followed. Her troponin I levels were abnormal. This is compatible with an acute non-ST segment elevation HI. The patient does have underlying extensive coronary artery disease and graft vessel disease as previously noted. She has been extensively evaluated from a noninvasive and invasive standpoint at the [facility] [place] in September of this year. She has been delegated to conservative medical management as she was not deemed a candidate for any further revascularization therapy. Thus at the present time she will continue to be monitored. Her cardiac enzymes will be followed. Her ECG will be followed. She will continue medical management. Ideally this would include antiplatelet therapy, anticoagulant therapy, beta-blockers, etc. However these agents will have to be adjusted around her clinical course, vital signs, and other invasive procedures from a pulmonary standpoint, etc. 4. Acute on chronic systolic CHF The patient has a history of chronic systolic CHF. She now appears to have developed acute symptoms which may be secondary to a combination of factors including her recent IV fluids as well as her alteration in her underlying cardiac rate and rhythm. This is all superimposed upon her diminished LV systolic function. At the present time she is being monitored. She does appear to be improved overall. She will continue her medical management. 5. CAD status post CABG He does have a history of underlying CAD and underwent CABG in 1994. According to her most recent cardiac catheterization report it appears there were 2 g commented upon. The JACOBSON to the LAD was patent and the SVG to the right PDA was occluded. It appears that she was delegated to conservative medical management based upon her recent extensive [facility] cardiology evaluation. She was not deemed a candidate for any additional attempts at revascularization therapy. 6. Mitral valve replacement She appears to undergone mitral valve replacement with a bioprosthetic mitral valve in 2013. This was assessed by echocardiogram. It was reported as stable. 7. Tricuspid valve repair [place] to her [facility] medical record she also underwent tricuspid valve repair in 2013. According to her echocardiogram performed at [facility] she has mild tricuspid valve regurgitation. 8. Pleural effusion She does have a chronic right-sided pleural effusion. Unfortunately it does not appear that her vehicle based catheter procedure was successful. She may be delegated to future repeat thoracentesis procedures per 9. Pancytopenia She does have pancytopenia. She was markedly anemic on admission. She has received PRBCs. Her hemoglobin has increased. Hopefully this will help her oxygen carrying capacity. The same time she has thrombocytopenia. Thus, between concerns of her anemia and thrombocytopenia does make it more challenging to proceed with systemic anticoagulant therapy. 10. Acute renal insufficiency She did present with evidence of acute renal insufficiency. It was thought this was related to decreased oral intake and dehydration. Her renal function should be followed over time. 11. Dehydration Overall she does appear to be improved with respect to her volume status. 12. Sacral decubitus ulcer She does have a chronic sacral decubitus ulcer. According to her medical records this is led to her being considered not a candidate for an implantable ICD placement. Overall, she is going to continue conservative medical management. There are no immediate cardiovascular procedure scheduled for her. This note was generated with [employer] dictation software. It may contain incorrect words, spelling, and punctuation that were not noted in checking the note before signing.
[2016-11-13] MEDS: Pantoprazole Sodium 40 MG Tablet PO (09:19)
[2016-11-13] MEDS: Amiodarone 200 MG Tablet PO (09:19)
[2016-11-13] MEDS: Multivitamins,Ther W-Minerals Tablet 1 TABLET PO (09:19)
[2016-11-13] MEDS: Loratadine 10 MG Tablet PO (09:19)
[2016-11-13] MEDS: Fluticasone 0.05% 1 SPRAY NASAL.SRY 2 SPRAY NASAL (09:25)
[2016-11-13] MEDS: Menthol/Lanolin/Calamine/Znox 113 GM Tube 1 APPLIC TOPICAL (09:25)
--- NOTE | 2016-11-13 09:33 | CASEMGMT ---
SW spoke with patient and she does want Hospice. SW called Hospice and made referral. SW also faxed them updated information. Qing DE LA TORRE MSW
--- NOTE | 2016-11-13 10:29 | PCM.HOSP.N ---
Hospitalist Note The patient is seen and examined, chart and pertinent notes are reviewed The patient feels well today, is breathing comfortably. She remains in normal sinus rhythm. She remains on 2 L O2 with adequate saturations. She is looking forward to returning to the [facility]. Vital signs Afebrile, heart rate 79, regular, blood pressure 100/48, 99% 2 L I/O 120/350 (-230 mL) Neck veins flat Chest clear throughout with the exception of decreased breath sounds right base one quarter up Cardiac S1-S2, regular abdomen obese soft nontender Lower extremities thin, no edema Laboratory hemoglobin 10.3, potassium 4.7 Platelet 89, creatinine 1.14, BUN 6 9 The patient is otherwise medically stable for discharge to return to [facility] today. She reports she will meet with hospice services at the [facility]. See discharge summary, med reconciliation, orders Would hold off on addition of spironolactone at this time, given potassium 4.7
--- NOTE | 2016-11-13 10:32 | CCHN_ITS ---
Hospitalist Note The patient is seen and examined, chart and pertinent notes are reviewed The patient feels well today, is breathing comfortably. She remains in normal sinus rhythm. She remains on 2 L O2 with adequate saturations. She is looking forward to returning to the residential. Vital signs Afebrile, heart rate 79, regular, blood pressure 100/48, 99% 2 L I/O 120/350 (-230 mL) Neck veins flat Chest clear throughout with the exception of decreased breath sounds right base one quarter up Cardiac S1-S2, regular abdomen obese soft nontender Lower extremities thin, no edema Laboratory hemoglobin 10.3, potassium 4.7 Platelet 89, creatinine 1.14, BUN 6 9 The patient is otherwise medically stable for discharge to return to residential today. She reports she will meet with hospice services at the residential. See discharge summary, med reconciliation, orders Would hold off on addition of spironolactone at this time, given potassium 4.7
--- NOTE | 2016-11-13 10:43 | PCM.DC ---
- Discharge Diagnoses Current Active Problems: Current Active and Chronic Problems LINDA (acute kidney injury) (Acute) Acute renal insufficiency (Acute) Anemia, macrocytic (Acute) Atrial fibrillation (Acute) Dehydration (Acute) Intractable nausea and vomiting (Acute) Stage 4 pressure ulcer (Acute) Systolic CHF, acute on chronic (Acute) Ventricular tachycardia (Acute) CAD (coronary artery disease) (Chronic) Cardiomyopathy (Chronic) Cardiomyopathy, ischemic (Chronic) History of mitral valve replacement with bioprosthetic valve (Chronic) Pancytopenia (Chronic) Pleural effusion (Chronic) S/P CABG (coronary artery bypass graft) (Chronic) S/P tricuspid valve repair (Chronic) You will use the following diet at home:: Regular, Other - 1 g sodium Your food should be the consistency of: Regular Your liquids should be the consistency of: Regular/Thin Discharge Activity: Return to Normal Activity, - - As tolerated Catheter: Figueroa to leg bag, Figueroa to large bag Additional Instructions: O2 at 2 L per nasal cannula Allergies/Adverse Reactions: Allergies codeine Allergy (Verified 11/07/16 13:03) Rash docetaxel [From Taxotere] Allergy (Verified 11/07/16 17:20) skin peeled from hands and feet-lips and throat blistered Penicillins [PCN] Allergy (Verified 11/07/16 13:03) Rash adhesive Adverse Reaction (Verified 11/07/16 13:03) Rash Medications to take at Discharge Albuterol Aerosols [Ventolin Aerosols] 2.5 mg INHALATION Q4H PRN PRN 02/08/15 Amiodarone HCl [Cordarone] 200 mg PO DAILY 02/08/15 Aspirin [Aspirin, Baby] 81 mg PO DAILY@0800 02/08/15 BusPIRone [Buspar] 5 mg PO BID 02/08/15 Lactobacillus Acidophilus/Fos [Acidophilus Probiotic Tablet] 1 each PO DAILY 02/08/15 Multivitamins,Ther W-Minerals [Multivitamin With Minerals] 1 tablet PO DAILY 02/08/15 Simvastatin [Zocor] 10 mg PO QHS 02/08/15 Acetic Acid 30 ml IR BID 05/24/15 Bisacodyl [Laxative Suppository] 10 mg RC DAILY PRN 05/24/15 Benzonatate [Tessalon Perle] 100 mg PO 4X/DAY PRN PRN 09/25/16 Docusate Calcium [Surfak] 240 mg PO DAILY 09/25/16 Fexofenadine HCl 90 mg PO DAILY 09/25/16 Fluticasone 0.05% [Flonase Nasal [place]] 2 spray NASAL DAILY 09/25/16 Oxybutynin [Ditropan] 10 mg PO DAILY 09/25/16 Polyethylene Glycol 3350 [Miralax] 17 gm PO DAILY 09/25/16 Promethazine/Dextromethorphan [Promethazine-Dm Syrup] 10 ml PO QHS 09/25/16 Acetaminophen [Tylenol Extra Strength] 500 mg PO Q8H PRN 11/07/16 Krish Antifungal Cream 2% 1 applicatio TOPICAL BID 11/07/16 Calcium Polycarbophil [Fiber-Caps] 2 cap PO BID 11/07/16 Doxycycline [Vibramycin] 100 mg PO BID 11/07/16 Guaifenesin Dm [Robitussin Dm] 5 ml PO Q4H PRN 11/07/16 Ketoconazole [Nizoral Cream] 1 applic TOPICAL QHS 11/07/16 Lactose-Reduced Food [Boost Breeze] 237 ml PO BID 11/07/16 Lisinopril [Zestril] 2.5 mg PO DAILY 11/07/16 Magnesium Hydroxide [Milk Of Magnesia] 30 ml PO DAILY PRN PRN 11/07/16 Melatonin 5 mg PO QHS PRN 11/07/16 Nutritional Supplement [Luis - ORANGE FLAVOR] 1 packet PO BIDCM 11/07/16 Nystatin Powder [Mycostatin Powder] 1 applic TOPICAL BID PRN 11/07/16 Ondansetron HCl [Zofran] 4 mg PO Q4H PRN 11/07/16 Potassium Chloride [Klor-Con] 25 meq PO DAILY 11/07/16 Protein Supplement [Prosource] 1 oz PO TID 11/07/16 Saliva Substitute Combo No.9 [Biotene] 1 applicatio MM BID 11/07/16 Menthol/Lanolin/Calamine/Znox [Calmoseptine Ointment] 1 applic TOPICAL BID tube 11/13/16 Metoprolol Tartrate [Lopressor (beta roberto)] 12.5 mg PO BID tablet 11/13/16 Mirtazapine 7.5 mg PO QHS #6 11/13/16 Pantoprazole Sodium [Protonix] 40 mg PO BID tablet 11/13/16 The following prescriptions were given: Mirtazapine 7.5 mg PO QHS #6 Primary Care Physician: Jamil Carballo DO [Primary Care Provider] -
--- NOTE | 2016-11-13 11:05 | PCM.PN.ID ---
Patient Problems: Active and Suspected Problems LINDA (acute kidney injury) (Acute) Acute renal insufficiency (Acute) Anemia, macrocytic (Acute) Atrial fibrillation (Acute) Dehydration (Acute) Intractable nausea and vomiting (Acute) Stage 4 pressure ulcer (Acute) Systolic CHF, acute on chronic (Acute) Ventricular tachycardia (Acute) Subjective: Feeling better, nausea improved. Stable off abx. No fever. - Physical Exam General: Alert, Cooperative, No apparent distress Lungs: Clear to auscultation, Normal air movement Cardiovascular: Regular rate, Regular Rhythm Abdomen: Soft, Non Tender, Non-Distended Skin: - - sacrum bandaged Vital Signs Temp Pulse Resp BP Pulse Ox 97.0 F 79 20 100/48 99 11/13/16 09:05 11/13/16 09:19 11/13/16 09:05 11/13/16 09:19 11/13/16 09:05 Oxygen Flow Rate 2 Oxygen Delivery Method Nasal Cannula Weight: 72.9 kg Body Mass Index (BMI) 25.2 Intake and Output for Last 24 Hours 11/11/16 11/12/16 11/13/16 23:59 23:59 23:59 Intake Total 1316 480 120 Output Total 1225 925 350 Balance 91 -445 -230 Microbiology Past 72 Hours 11/11/16 09:30 Gram Stain - Final Sputum, Expectorated/Coughed Respiratory Culture - Preliminary Appears to be normal respiratory tulio. Further studies to follow. Laboratory Tests Past 24 Hrs 11/13/16 11/13/16 05:10 05:10 WBC 7.2 RBC 3.36 L Hgb 10.3 L Hct 33.5 L MCV 99.7 H MCH 30.7 MCHC 30.7 L RDW 15.5 H RDW Differential 54.1 H Plt Count 89 L MPV 11.9 Sodium 140 Potassium 4.7 Chloride 106 Carbon Dioxide 28.0 Anion Gap 6 BUN 69 H Creatinine 1.14 H Estim Creat Clear Calc 44.83 Est GFR (MDRD) Af Amer 61 Est GFR (MDRD) Non-Af 51 L BUN/Creatinine Ratio 60.5 H Glucose 109 Calcium 9.2 Magnesium 2.3 Route of nutrition/ use of supplements: [] Nutritional Intake: [] IV Site: [] Figueroa Catheter: [] - Assessment/Plan Antibiotics: [] Assessment/Plan: [] Active and Suspected Problems LINDA (acute kidney injury) (Acute) Anemia, macrocytic (Acute) Dehydration (Acute) Intractable nausea and vomiting (Acute) Stage 4 pressure ulcer (Acute) MRSA infected sacral ulcer - Completed course of doxy as planned on 11/10. D/c today to [facility]. Stable off abx. Will sign off.
--- NOTE | 2016-11-13 11:15 | NURSING ---
Hospice in to talk with patient at this time.
--- NOTE | 2016-11-13 11:40 | NURSING ---
wound photo: sacrum
--- NOTE | 2016-11-13 12:10 | PCM.TXEXTCAR ---
- Diet 11/11/16 07:51 Diet:Regular Diet Is pt able to select menu?: Yes Diet Comments: 1gm sodium diet - Routine Orders/Code Status Enema Type: Fleetz Enema Frequency: Daily PRN Suppository Type: Dulcolax 10mg Suppository Frequency: Daily PRN O2 Frequency: Continuous - 2 liters/nc Code Status: DNRCC-A - Wound(s) COCCYX Wound Type: Pressure Injury Dressing Change: AntiMicrobial (Aquacel AG, etc) under right breast Wound Type: Abrasion RT CHEST Wound Type: Puncture Dressing Change: Dry Sterile Dressing - Therapies Weight Bearing: Weight bearing as tolerated Physical Therapy: Eval and Treat Occupational Therapy: Eval and Treat - Allergies/Procedures Done in Hospital Allergies/Adverse Reactions: Allergies codeine Allergy (Verified 11/07/16 13:03) Rash docetaxel [From Taxotere] Allergy (Verified 11/07/16 17:20) skin peeled from hands and feet-lips and throat blistered Penicillins [PCN] Allergy (Verified 11/07/16 13:03) Rash adhesive Adverse Reaction (Verified 11/07/16 13:03) Rash Procedures: - - failed PleurX catheter placement 11/10/16 - Type of Care/Length of Stay Estimated LOS: More Than 30 Days Type of Care Needed: Intermediate Rehab Potential: Poor Prognosis: Poor - Additional Orders/Day of Discharge H&P will serve as current which was dated: 11/07/16 Day of Discharge: 11/13/16 - Dietary and Speech Recommendations Dietitian Recommendations/Changes: Will add ensure enlive with meals as medically able - and of consistency per [employer]. 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 - Follow Up Care Primary Care Physician: Jamil Carballo DO [Primary Care Provider] -
--- NOTE | 2016-11-13 12:13 | TREXTCAR_ITS ---
- Diet 11/11/16 07:51 Diet:Regular Diet Is pt able to select menu?: Yes Diet Comments: 1gm sodium diet - Routine Orders/Code Status Enema Type: Fleetz Enema Frequency: Daily PRN Suppository Type: Dulcolax 10mg Suppository Frequency: Daily PRN O2 Frequency: Continuous - 2 liters/nc Code Status: DNRCC-A - Wound(s) COCCYX Wound Type: Pressure Injury Dressing Change: AntiMicrobial (Aquacel AG, etc) under right breast Wound Type: Abrasion RT CHEST Wound Type: Puncture Dressing Change: Dry Sterile Dressing - Therapies Weight Bearing: Weight bearing as tolerated Physical Therapy: Eval and Treat Occupational Therapy: Eval and Treat - Allergies/Procedures Done in Hospital Allergies/Adverse Reactions: Allergies codeine Allergy (Verified 11/07/16 13:03) Rash docetaxel [From Taxotere] Allergy (Verified 11/07/16 17:20) skin peeled from hands and feet-lips and throat blistered Penicillins [PCN] Allergy (Verified 11/07/16 13:03) Rash adhesive Adverse Reaction (Verified 11/07/16 13:03) Rash Procedures: - - failed PleurX catheter placement 11/10/16 - Type of Care/Length of Stay Estimated LOS: More Than 30 Days Type of Care Needed: Intermediate Rehab Potential: Poor Prognosis: Poor - Additional Orders/Day of Discharge H&P will serve as current which was dated: 11/07/16 Day of Discharge: 11/13/16 - Dietary and Speech Recommendations Dietitian Recommendations/Changes: Will add ensure enlive with meals as medically able - and of consistency per NEURODIAGNOSTIC TECH. 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 - Follow Up Care Primary Care Physician: Jamil Carballo DO [Primary Care Provider] -
--- NOTE | 2016-11-13 12:36 | CASEMGMT ---
Patient signed Hospice papers. ADRIÁN faxed orders to [facility]. ADRIÁN called [facility] and set up transport for 2p via . ADRIÁN notified patient, RN, Maria Alejandra at [facility], and Emilia at Hospice. All in agreement with d/c plan. Plan: d/c back to [facility] under Hospice care Qing DE LA TORRE MSW
--- NOTE | 2016-11-13 13:17 | NURSING ---
REPORT CALLED TO [facility], FULL REPORT GIVEN TO BREE STAFFORD.
--- NOTE | 2016-11-13 16:59 | PCM.DC.SUM ---
Discharge Date and Diagnosis Date of Admission: 11/07/16 Date of Discharge: 11/13/16 - Primary Discharge Diagnosis LINDA/dehydration n/v - Secondary Discharge Diagnosis Chronic Problems CAD (coronary artery disease) (Chronic) Cardiomyopathy (Chronic) Cardiomyopathy, ischemic (Chronic) History of MRSA infection (Chronic) Z86.14 History of mitral valve replacement with bioprosthetic valve (Chronic) Malnutrition of moderate degree (Chronic) E44.0 malnutrition, moderate, unspecified. Other chronic osteomyelitis, other site (Chronic) M86.68 clinical chronic osteomyelitis sacral bone Pancytopenia (Chronic) Pleural effusion (Chronic) S/P CABG (coronary artery bypass graft) (Chronic) S/P tricuspid valve repair (Chronic) Sacral decubitus ulcer, stage IV (Chronic) L89.154 Hospital Course and Treatment Consultations 11/07/16 17:12 Consult: Onc/Wound/it security administrator Routine Comment: Procedures: - - failed U/S guided tunneled PleurX catheter placement 11/10/16 Summary of Care Provided: The patient is a 66 year old F with past history of ischemic cardiomyopathy, EF 10-15%, valvular heart disease, status post tricuspid valve replacement, CKD 3, hyperlipidemia, PAF, anxiety, GERD, history of breast cancer status post left lumpectomy with chemotherapy/radiation, and chronic sacral osteomyelitis with a chronic stage IV pressure ulcer, previous wound VAC, with MRSA colonization, and establish CODE STATUS DNR CCA. She had been started on doxycycline at around 10/31/2016 for MRSA of the wound; the presented to the emergency department on 11/07/2016 with nausea and vomiting for about a week, and was found to have AK I with creatinine 2.08 (baseline around 1). The patient was treated medically and supportively. She was noted to have chronic right pleural effusion with prior thoracentesis in the past. A palliative ultrasound-guided tunneled Pleurx catheter was attempted 11/10/2016; however this failed. The patient was monitored in the intensive care unit postprocedure and did well without complication. The patient completed her course of doxycycline on 11/10/2016. The patient was kindly followed in infectious disease, cardiology, and surgery consultations. The patient met with hospice services during her hospital stay and signed hospice papers. She was otherwise stable to return to [facility] under hospice care on 11/13/2016. Discharge laboratories --hemoglobin 10.3, white count 7.2, platelet 89K, creatinine 1.14. Discharge Activity: Return to Normal Activity, - - As tolerated Catheter: Figueroa to leg bag, Figueroa to large bag Home Medications: Medications to take at Discharge Albuterol Aerosols [Ventolin Aerosols] 2.5 mg INHALATION Q4H PRN PRN 02/08/15 Amiodarone HCl [Cordarone] 200 mg PO DAILY 02/08/15 Aspirin [Aspirin, Baby] 81 mg PO DAILY@0800 02/08/15 BusPIRone [Buspar] 5 mg PO BID 02/08/15 Lactobacillus Acidophilus/Fos [Acidophilus Probiotic Tablet] 1 each PO DAILY 02/08/15 Multivitamins,Ther W-Minerals [Multivitamin With Minerals] 1 tablet PO DAILY 02/08/15 Simvastatin [Zocor] 10 mg PO QHS 02/08/15 Acetic Acid 30 ml IR BID 05/24/15 Bisacodyl [Laxative Suppository] 10 mg RC DAILY PRN 05/24/15 Benzonatate [Tessalon Perle] 100 mg PO 4X/DAY PRN PRN 09/25/16 Docusate Calcium [Surfak] 240 mg PO DAILY 09/25/16 Fexofenadine HCl 90 mg PO DAILY 09/25/16 Fluticasone 0.05% [Flonase Nasal [place]] 2 spray NASAL DAILY 09/25/16 Oxybutynin [Ditropan] 10 mg PO DAILY 09/25/16 Polyethylene Glycol 3350 [Miralax] 17 gm PO DAILY 09/25/16 Promethazine/Dextromethorphan [Promethazine-Dm Syrup] 10 ml PO QHS 09/25/16 Acetaminophen [Tylenol Extra Strength] 500 mg PO Q8H PRN 11/07/16 Krish Antifungal Cream 2% 1 applicatio TOPICAL BID 11/07/16 Calcium Polycarbophil [Fiber-Caps] 2 cap PO BID 11/07/16 Doxycycline [Vibramycin] 100 mg PO BID 11/07/16 Guaifenesin Dm [Robitussin Dm] 5 ml PO Q4H PRN 11/07/16 Ketoconazole [Nizoral Cream] 1 applic TOPICAL QHS 11/07/16 Lactose-Reduced Food [Boost Breeze] 237 ml PO BID 11/07/16 Lisinopril [Zestril] 2.5 mg PO DAILY 11/07/16 Magnesium Hydroxide [Milk Of Magnesia] 30 ml PO DAILY PRN PRN 11/07/16 Melatonin 5 mg PO QHS PRN 11/07/16 Nutritional Supplement [Luis - ORANGE FLAVOR] 1 packet PO BIDCM 11/07/16 Nystatin Powder [Mycostatin Powder] 1 applic TOPICAL BID PRN 11/07/16 Ondansetron HCl [Zofran] 4 mg PO Q4H PRN 11/07/16 Potassium Chloride [Klor-Con] 25 meq PO DAILY 11/07/16 Protein Supplement [Prosource] 1 oz PO TID 11/07/16 Saliva Substitute Combo No.9 [Biotene] 1 applicatio MM BID 11/07/16 Menthol/Lanolin/Calamine/Znox [Calmoseptine Ointment] 1 applic TOPICAL BID tube 11/13/16 Metoprolol Tartrate [Lopressor (beta roberto)] 12.5 mg PO BID tablet 11/13/16 Mirtazapine 7.5 mg PO QHS #6 11/13/16 Pantoprazole Sodium [Protonix] 40 mg PO BID tablet 11/13/16 Following Prescrptions Were Given to Patient: Mirtazapine 7.5 mg PO QHS #6 Primary Care Physician: Jamil Carballo DO [Primary Care Provider] - Meaningful Use Info Meaningful Use Diagnoses (Choose all that apply): CHF - CHF SANRDA/ARB ordered at discharge?: Yes Documented LVEF (%): 10
--- NOTE | 2016-11-13 17:06 | DS.PCM_ITS ---
Discharge Date and Diagnosis Date of Admission: 11/07/16 Date of Discharge: 11/13/16 - Primary Discharge Diagnosis LINDA/dehydration n/v - Secondary Discharge Diagnosis Chronic Problems CAD (coronary artery disease) (Chronic) Cardiomyopathy (Chronic) Cardiomyopathy, ischemic (Chronic) History of MRSA infection (Chronic) Z86.14 History of mitral valve replacement with bioprosthetic valve (Chronic) Malnutrition of moderate degree (Chronic) E44.0 malnutrition, moderate, unspecified. 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 She had been started on doxycycline at around 10/31/2016 for MRSA of the wound; the presented to the emergency department on 11/07/2016 with nausea and vomiting for about a week, and was found to have AK I with creatinine 2.08 (baseline around 1). The patient was treated medically and supportively. She was noted to have chronic right pleural effusion with prior thoracentesis in the past. A palliative ultrasound- guided tunneled Pleurx catheter was attempted 11/10/2016; however this failed. The patient was monitored in the intensive care unit postprocedure and did well without complication. The patient completed her course of doxycycline on 2016. The patient was kindly followed in infectious disease, cardiology, and surgery consultations. The patient met with hospice services during her hospital stay and signed hospice papers. She was otherwise stable to return to [facility] under hospice care on 11/13/2016. Discharge laboratories --hemoglobin 10.3, white count 7.2, platelet 89K, creatinine 1.14. Discharge Activity: Return to Normal Activity, - - As tolerated Catheter: Figueroa to leg bag, Figueroa to large bag Home Medications: Medications to take at Discharge Albuterol Aerosols [Ventolin Aerosols] 2.5 mg INHALATION Q4H PRN PRN 02/08/15 Amiodarone HCl [Cordarone] 200 mg PO DAILY 02/08/15 Aspirin [Aspirin, Baby] 81 mg PO DAILY@0800 02/08/15 BusPIRone [Buspar] 5 mg PO BID 02/08/15 Lactobacillus Acidophilus/Fos [Acidophilus Probiotic Tablet] 1 each PO DAILY Multivitamins,Ther W-Minerals [Multivitamin With Minerals] 1 tablet PO DAILY Simvastatin [Zocor] 10 mg PO QHS 02/08/15 Acetic Acid 30 ml IR BID 05/24/15 Bisacodyl [Laxative Suppository] 10 mg RC DAILY PRN 05/24/15 Benzonatate [Tessalon Perle] 100 mg PO 4X/DAY PRN PRN 09/25/16 Docusate Calcium [Surfak] 240 mg PO DAILY 09/25/16 Fexofenadine HCl 90 mg PO DAILY 09/25/16 Fluticasone 0.05% [Flonase Nasal [place]] 2 spray NASAL DAILY 09/25/16 Oxybutynin [Ditropan] 10 mg PO DAILY 09/25/16 Polyethylene Glycol 3350 [Miralax] 17 gm PO DAILY 09/25/16 Promethazine/Dextromethorphan [Promethazine-Dm Syrup] 10 ml PO QHS 09/25/16 Acetaminophen [Tylenol Extra Strength] 500 mg PO Q8H PRN 11/07/16 Krish Antifungal Cream 2% 1 applicatio TOPICAL BID 11/07/16 Calcium Polycarbophil [Fiber-Caps] 2 cap PO BID 11/07/16 Doxycycline [Vibramycin] 100 mg PO BID 11/07/16 Guaifenesin Dm [Robitussin Dm] 5 ml PO Q4H PRN 11/07/16 Ketoconazole [Nizoral Cream] 1 applic TOPICAL QHS 11/07/16 Lactose-Reduced Food [Boost Breeze] 237 ml PO BID 11/07/16 Lisinopril [Zestril] 2.5 mg PO DAILY 11/07/16 Magnesium Hydroxide [Milk Of Magnesia] 30 ml PO DAILY PRN PRN 11/07/16 Melatonin 5 mg PO QHS PRN 11/07/16 Nutritional Supplement [Luis - ORANGE FLAVOR] 1 packet PO BIDCM 11/07/16 Nystatin Powder [Mycostatin Powder] 1 applic TOPICAL BID PRN 11/07/16 Ondansetron HCl [Zofran] 4 mg PO Q4H PRN 11/07/16 Potassium Chloride [Klor-Con] 25 meq PO DAILY 11/07/16 Protein Supplement [Prosource] 1 oz PO TID 11/07/16 Saliva Substitute Combo No.9 [Biotene] 1 applicatio MM BID 11/07/16 Menthol/Lanolin/Calamine/Znox [Calmoseptine Ointment] 1 applic TOPICAL BID tube 11/13/16 Metoprolol Tartrate [Lopressor (beta roberto)] 12.5 mg PO BID tablet 11/13/16 Mirtazapine 7.5 mg PO QHS #6 11/13/16 Pantoprazole Sodium [Protonix] 40 mg PO BID tablet 11/13/16 Following Prescrptions Were Given to Patient: Mirtazapine 7.5 mg PO QHS #6 Primary Care Physician: Jamil Carballo DO [Primary Care Provider] - Meaningful Use Info Meaningful Use Diagnoses (Choose all that apply): CHF - CHF SANDRA/ARB ordered at discharge?: Yes Documented LVEF (%): 10
== END 2016-11-13 14:08 | disposition hospice, home (50) | DRG 640 ==
PROVIDERS: Internal Medicine; Nurse Practitioner Family; Physician Assistant; Surgery; Admitting Provider Family Medicine; Emergency Provider Emergency Medicine; Family Provider Family Medicine; PCP Family Medicine; Visit Provider Internal Medicine
DX: E86.0 Dehydration (principal); L89.154 Pressure ulcer of sacral region, stage 4; I21.4 Non-ST elevation (NSTEMI) myocardial infarction; J96.20 Acute and chronic respiratory failure, unspecified whether with hypoxia or hypercapnia; E43 Unspecified severe protein-calorie malnutrition; I50.23 Acute on chronic systolic (congestive) heart failure; D61.818 Other pancytopenia; I47.2 Ventricular tachycardia; M46.28 Osteomyelitis of vertebra, sacral and sacrococcygeal region; T85.628A Displacement of other specified internal prosthetic devices, implants and grafts, initial encounter; J91.8 Pleural effusion in other conditions classified elsewhere; B95.62 Methicillin resistant Staphylococcus aureus infection as the cause of diseases classified elsewhere; K21.9 Gastro-esophageal reflux disease without esophagitis; I25.10 Atherosclerotic heart disease of native coronary artery without angina pectoris; I25.5 Ischemic cardiomyopathy; Z95.3 Presence of xenogenic heart valve; Z95.1 Presence of aortocoronary bypass graft; Z85.3 Personal history of malignant neoplasm of breast; Z66 Do not resuscitate; E78.5 Hyperlipidemia, unspecified; Z92.3 Personal history of irradiation; Z92.21 Personal history of antineoplastic chemotherapy; Z68.25 Body mass index [BMI] 25.0-25.9, adult; I48.0 Paroxysmal atrial fibrillation; Z79.899 Other long term (current) drug therapy; R19.5 Other fecal abnormalities
CPT/HCPCS: 36415; 71010; 71020; 76770; 80048; 80053; 80076; 81001; 82274; 82570; 82607; 82728; 82746; 82962; 83036; 83540; 83550; 83605; 83735; 84300; 84443; 84484; 85025; 85027; 85610; 85730; 86850; 86900; 86920; 87070; 87086; 87088; 87205; 87641; 92526; 92610; 93005; 93306; 94667; 94668; 97110; 97162; 97166; 97530; 97535; 97802; 99285; J7030; J7040; P9016; A4216; C1729; J1940; J2310